=== PATIENT | male | born 1950 | race Caucasian/White ===

== ENCOUNTER 2017-02-04 03:29 | Observation (INO) | payer MEDICARE, OTHER ==
[2017-02-04] VITALS (11 sets, daily range): BP systolic 104–134; BP diastolic 42–73
[~2017-02-04] VITALS: Ht 188 cm; Wt 76.8 kg
--- NOTE | 2017-02-04 03:42 | PHYS DOC ---
Past History Past Medical History: No Pertinent History Past Surgical History: No Surgical History Smoking: Non-smoker Alcohol Use: None Drug Use: None Adult General Chief Complaint Chief Complaint: syncope HPI HPI 66-year-old gentleman presenting to the emergency department today after having a syncopal episode. He reports being mildly short of breath throughout the past 24 hours but didn't feel that he was any more than usual. Tonight felt lightheaded he went to go to get to the bathroom and subsequently passed out. Paramedics were called and the patient was then brought in for further evaluation workup and care. He denies any palpitations abdominal pain nausea vomiting or diaphoresis. He denies fevers or cough. Review of systems is negative for fevers chills nausea vomiting abdominal pain. All other review of systems is negative unless otherwise noted in history of present illness. All other review of systems is negative unless otherwise noted in history of present illness. ED course: 66-year-old gentleman presenting to the emergency department today with syncopal episode. Vitals. EKG was obtained which showed sinus rhythm with a regular rate. ST segments are congruent. Not suggestive of ACS. Chest x-ray obtained along with blood work.Chest x-ray reviewed by myself shows no obvious infiltrate or pneumothorax present. No obvious acute cardiopulmonary process present. Blood work reviewed and unremarkable including urinalysis. Pt was then admitted for telemetry monitoring further evaluation workup and care. Review of Systems Review of Systems SEE ABOVE. Physical Exam Physical Exam Constitutional: Well developed, well nourished, no acute distress, non-toxic appearance. [] HENT: Normocephalic, atraumatic, bilateral external ears normal, oropharynx moist, no oral exudates, nose normal. [] Eyes: PERRLA, EOMI, conjunctiva normal, no discharge. [] Neck: Normal range of motion, no tenderness, supple, no stridor. [] Cardiovascular:Heart rate regular rhythm, no murmur [] Lungs & Thorax: Bilateral breath sounds clear to auscultation [] Abdomen: Bowel sounds normal, soft, no tenderness, no masses, no pulsatile masses. [] Skin: Warm, dry, no erythema, no rash. [] Back: No tenderness, no CVA tenderness. [] Extremities: No tenderness, no cyanosis, no clubbing, ROM intact, no edema. [] Neurologic: Alert and oriented X 3, normal motor function, normal sensory function, no focal deficits noted. [] Psychologic: Affect normal, judgement normal, mood normal. [] EKG EKG [] Radiology/Procedures Radiology/Procedures [] Course & Med Decision Making Course & Med Decision Making Pertinent Labs and Imaging studies reviewed. (See chart for details) [] Dragon Disclaimer Dragon Disclaimer This chart was dictated in whole or in part using Voice Recognition software in a busy, high-work load, and often noisy Emergency Department environment. It may contain unintended and wholly unrecognized errors or omissions. Departure Departure: Impression: Primary Impression: Syncope Disposition: ADMITTED INPATIENT Admitting Physician: Usama Buchanan Condition: STABLE Referrals: PCP,NO (PCP) Patient Instructions: Syncope CHAVA HILL MD Feb 04, 2017 03:42
[2017-02-04 03:58] LABS: BASO # 0.1 x10^3/uL (0.0-0.2); BASO % 1 % (0-3); EOS # 0.1 x10^3/uL (0.0-0.7); EOS % 1 % (0-3); HEMATOCRIT 40.7 % (39.0-53.0); LYMPH # 3.9 x10^3/uL (1.0-4.8); LYMPH % 45 % (24-48); MEAN CORPUSCULAR HEMOGLOBIN 33 pg (25-35); MEAN CORPUSCULAR HGB CONC 34 g/dL (31-37); MEAN CORPUSCULAR VOLUME 97 fL (79-100); MONO # 0.6 x10^3/uL (0.0-1.1); MONO % 7 % (0-9); NEUT % 46 % (31-73); PLATELET COUNT 173 x10^3/uL (140-400); RED CELL DISTRIBUTION WIDTH 14.6 % (11.5-14.5); WHITE BLOOD COUNT 8.6 x10^3/uL (4.0-11.0)
[2017-02-04 04:17] LABS: ALBUMIN 3.7 g/dL (3.4-5.0); CALCIUM 8.6 mg/dL (8.5-10.1); CREATININE 1.7 mg/dL (0.7-1.3); DIRECT BILIRUBIN 0.1 mg/dL (0.0-0.2); GFR 40.4; POTASSIUM 3.9 mmol/L (3.5-5.1); TOTAL BILIRUBIN 0.3 mg/dL (0.2-1.0); TOTAL PROTEIN 7.3 g/dL (6.4-8.2)
[2017-02-04] MEDS ORDERED: CLOP75TA PO (04:41)
[2017-02-04] MEDS ORDERED: POTA10CA PO (04:41)
[2017-02-04] MEDS ORDERED: TIOT18CA IH (04:41)
[2017-02-04] MEDS ORDERED: DOCU100C28 PO (04:41)
[2017-02-04] MEDS ORDERED: ACET160S PO (04:41)
[2017-02-04] MEDS ORDERED: TRAM-48 PO (04:41)
[2017-02-04] MEDS ORDERED: LINA145C PO (04:41)
[2017-02-04] MEDS ORDERED: IPRA3AMP NEB (04:41)
[2017-02-04] MEDS ORDERED: GABA600T2 PO (04:41)
[2017-02-04] MEDS ORDERED: IPRA4AER INH (04:41)
[2017-02-04] MEDS ORDERED: FURO20TA3 PO (04:41)
[2017-02-04] MEDS ORDERED: OXYC-323 PO (04:41)
[2017-02-04] MEDS ORDERED: NITR0.4T22 SL (04:41)
[2017-02-04] MEDS ORDERED: OMEP20CA9 PO (04:41)
[2017-02-04 05:25] LABS: BILIRUBIN,URINE NEG (NEG); CLARITY,URINE CLEAR; COLOR,URINE YELLOW; GLUCOSE,URINE NEG (NEG); NITRITE,URINE NEG (NEG); UROBILINOGEN,URINE 4 mg/dL (0.2 mg/dL); WBC,URINE RARE /HPF (0-4)
[2017-02-04 05:26] LABS: BACTERIA,URINE 0 /HPF (0-FEW); SQUAMOUS EPITHELIAL CELL,UR OCC /LPF
[2017-02-04] MEDS ORDERED: MORPHINE SULFATE 2 MG/ML DISP.SYRIN. IV PRN (05:45)
[2017-02-04] MEDS ORDERED: ONDANSETRON PF 4 MG/2 ML VIAL. IV PRN ×2 (05:45→08:00)
[2017-02-04] MEDS: IV NORMAL SALINE 1,000ML 1,000 ML IV SCH ×2 (05:49→15:46)
--- NOTE | 2017-02-04 06:17 | EKG ---
[address] [address] Test Date: 2017-02-04 Test Time: 03:34:55 Pat Name: SUYAPA KENNEY Department: Room: Gender: M [employer]: KATIA : 1950 Requested By: CHAVA HILL Order Number: [id number] Reading MD: Allen Burgos Measurements Intervals [place] Rate: 72 P: 74 MS: 138 QRS: 22 QRSD: 82 T: 60 QT: 404 QTc: 444 Interpretive Statements SINUS RHYTHM CONSISTENT WITH ANTEROSEPTAL INFARCT Electronically Signed On 02-06-2017 8:45:27 CDT by Allen Burgos
[2017-02-04] MEDS ORDERED: ASPI-630 PO (07:47)
[2017-02-04] MEDS ORDERED: ACET325T9 PO (07:47)
[2017-02-04] MEDS ORDERED: CLOP75TA57 PO (07:47)
--- NOTE | 2017-02-04 09:08 | RAD ---
CHEST AP ONLY Clinical Indication: syncope Comparison: None. Findings: The lateral costophrenic margins are partially excluded from the [id number]. Low lung volume. No focal consolidations. Pulmonary vascular fullness. No large pleural effusion or pneumothorax. The cardiomediastinal silhouette is normal. The great vessels of the thorax are normal. No acute osseous abnormality. IMPRESSION: 1. No focal consolidation. 2. Pulmonary vascular fullness. This finding can be seen with early pulmonary edema, but given the patient's normal heart size, it is likely just accentuated by the low lung volumes.
[2017-02-04] MEDS ORDERED: NITROGLYCERIN SUBLINGUAL 0.4 MG BOTTLE OF 25. SL PRN (09:15)
[2017-02-04] MEDS ORDERED: traMADol 50 MG TABLET PO PRN (09:15)
[2017-02-04] MEDS: IPRATRPIUM/ALBUTEROL 0.5/2.5MG 3 ML NEBU. NEB SCH ×4 (09:34→20:30)
[2017-02-04] MEDS ORDERED: DOCUSATE SODIUM 100 MG CAPSULE PO SCH (10:00)
[2017-02-04] MEDS ORDERED: ASPIRIN 81 MG TAB.CHEW PO SCH (10:00)
[2017-02-04] MEDS: PANTOPRAZOLE 40 MG TABLET. PO SCH (11:01)
[2017-02-04] MEDS: GABAPENTIN 300 MG CAPSULE. PO SCH ×4 (11:01→21:15)
[2017-02-04] MEDS: CLOPIDOGREL BISULFATE 75 MG TABLET PO SCH (11:01)
[2017-02-04] MEDS: LINACLOTIDE 145 MCG CAPSULE. PO SCH (11:13)
[2017-02-04] MEDS ORDERED: oxyCODONE/APAP 5/325 1 TAB TABLET PO PRN (12:00)
[2017-02-04] MEDS ORDERED: ACETAMINOPHEN 325 MG TABLET PO SCH (12:00)
[2017-02-04] MEDS ORDERED: ACETAMINOPHEN 325 MG TABLET PO PRN (12:00)
[2017-02-04] MEDS ORDERED: oxyCODONE/APAP 5/325 1 TAB TABLET PO SCH (12:00)
--- NOTE | 2017-02-04 13:32 | PDOC1 ---
HISTORY & PHYSICAL DATE OF ADMISSION: 02/04/2017 HPI: HPI: This is a 66-year-old male who states he got up in the middle of the night to go to the bathroom, he was in the hallway and felt like he was going to pass out. He did pass out. He does not think that he was out very long. He was in the process of easing himself to the floor. And did not sustain any injury that he is aware of. He also reports some increasingly shortness of breath over the last couple of days more so than normal. Particularly with exertion. Denies chest pain. PROBLEMS: Problems Medical Problems: (1) Syncopal Episode #2 severe peripheral vascular disease #3 chronic constipation #4 hypothyroidism #5 COPD #6 chronic kidney disease stage III #7 enlarged prostate number #8 history of kidney cancer #9 history of bradycardia and hypotension #10 coronary artery disease #11 sleep apnea number #12 history of NM 13 essential tremor 14 neuropathy Status: Acute PAST MEDICAL HISTORY: PMH: #1 Syncopal episode in the past 5 years ago #2 severe peripheral vascular disease #3 chronic constipation #4 hypothyroidism #5 COPD #6 chronic kidney disease stage III #7 enlarged prostate number #8 history of kidney cancer #9 history of bradycardia and hypotension #10 coronary artery disease #11 sleep apnea number #12 history of NM 13 essential tremor 14 neuropathy PSH: Partial nephrectomy-left Multiple vascular stents in his legs and abdomen Nerve transfer surgery and left elbow 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 quit, no alcohol ALLERGIES: Allergies Coded Allergies Type Severity Reaction Last Updated Verified No Known Drug Allergies 02/04/17 No MEDS: MEDICATIONS: Current Medications Medications (Trade) Dose Ordered Sig/Fritz Start Time Stop Time Status Last Admin Dose Admin Acetaminophen (Tylenol) 650 mg PRN Q6HRS PRN 02/04/17 12:00 Albuterol/ Ipratropium (Duoneb) 3 ml QID 02/04/17 10:00 02/04/17 09:34 3 ML Aspirin (Children'S Aspirin) 81 mg DAILY 02/04/17 10:00 02/04/17 10:26 DC Clopidogrel Bisulfate (Plavix) 75 mg DAILY 02/04/17 10:00 02/04/17 11:01 75 MG Docusate Sodium (Colace) 100 mg BID 02/04/17 10:00 02/04/17 10:26 DC Gabapentin (Neurontin) 600 mg QID 02/04/17 10:00 02/04/17 11:01 600 MG Morphine Sulfate (Morphine 2mg Syringe) 2 mg PRN Q2HR PRN 02/04/17 05:45 02/05/17 05:44 Nitroglycerin (Nitrostat) 0.4 mg PRN Q5MIN PRN 02/04/17 09:15 Non-Formulary Medication 18 mcg BID 02/04/17 21:00 02/04/17 21:00 DC Ondansetron HCl (Zofran) 4 mg PRN Q8HRS PRN 02/04/17 08:00 Oxycodone/ Acetaminophen (Percocet 5/325) 1 tab PRN Q6HRS PRN 02/04/17 12:00 Pantoprazole Sodium (Protonix) 40 mg DAILYAC 02/04/17 10:00 02/04/17 11:01 40 MG Potassium Chloride (Micro-K) 10 meq DAILY 02/05/17 10:00 02/05/17 10:00 DC Sodium Chloride 1,000 ml @ 100 mls/hr Q10H 02/04/17 05:35 02/05/17 05:34 02/04/17 05:49 100 MLS/HR Tramadol HCl (Ultram) 50 mg PRN Q6HRS PRN 02/04/17 09:15 VITALS: He has had several episodes of bradycardia with rate in the 40s. Vital Signs Date Time Temp Pulse Resp B/P (MAP) Pulse Ox O2 Delivery O2 Flow Rate FiO2 02/04/17 12:56 58 20 115/64 (81) 96 Room Air 02/04/17 11:15 97.8 02/04/17 09:38 2.0 LABS: Laboratory Tests Test 02/04/17 03:33 02/04/17 04:54 02/04/17 10:24 White Blood Count 8.6 x10^3/uL (4.0-11.0) Red Blood Count 4.20 x10^6/uL (4.30-5.70) Hemoglobin 14.0 g/dL (13.0-17.5) Hematocrit 40.7 % (39.0-53.0) Mean Corpuscular Volume 97 fL (79-100) Mean Corpuscular Hemoglobin 33 pg (25-35) Mean Corpuscular Hemoglobin Concent 34 g/dL (31-37) Red Cell Distribution Width 14.6 % (11.5-14.5) Platelet Count 173 x10^3/uL (140-400) Neutrophils (%) (Auto) 46 % (31-73) Lymphocytes (%) (Auto) 45 % (24-48) Monocytes (%) (Auto) 7 % (0-9) Eosinophils (%) (Auto) 1 % (0-3) Basophils (%) (Auto) 1 % (0-3) Neutrophils # (Auto) 4.0 x10^3uL (1.8-7.7) Lymphocytes # (Auto) 3.9 x10^3/uL (1.0-4.8) Monocytes # (Auto) 0.6 x10^3/uL (0.0-1.1) Eosinophils # (Auto) 0.1 x10^3/uL (0.0-0.7) Basophils # (Auto) 0.1 x10^3/uL (0.0-0.2) Sodium Level 143 mmol/L (136-145) Potassium Level 3.9 mmol/L (3.5-5.1) Chloride Level 107 mmol/L (98-107) Carbon Dioxide Level 29 mmol/L (21-32) Anion Gap 7 (6-14) Blood Urea Nitrogen 15 mg/dL (8-26) Creatinine 1.7 mg/dL (0.7-1.3) Estimated GFR (Cockcroft-Gault) 40.4 Glucose Level 120 mg/dL (70-99) Lactic Acid Level 1.9 mmol/L (0.4-2.0) Calcium Level 8.6 mg/dL (8.5-10.1) Total Bilirubin 0.3 mg/dL (0.2-1.0) Direct Bilirubin 0.1 mg/dL (0.0-0.2) Aspartate Amino Transf (AST/SGOT) 11 U/L (15-37) Alanine Aminotransferase (ALT/SGPT) 16 U/L (16-63) Alkaline Phosphatase 71 U/L (46-116) Troponin I Quantitative < 0.017 ng/mL (0-0.055) < 0.017 ng/mL (0-0.055) RH-Twi-O-Type Natriuretic Peptide 200 pg/mL (0-124) Total Protein 7.3 g/dL (6.4-8.2) Albumin 3.7 g/dL (3.4-5.0) Lipase 136 U/L (73-393) Urine Collection Type Unknown Urine Color Yellow Urine Clarity Clear Urine pH 6.0 Urine Specific [place] 1.020 Urine Protein Neg (NEG-TRACE) Urine Glucose (UA) Neg mg/dL (NEG) Urine Ketones (Stick) Trace mg/dL (NEG) Urine Blood Mod (NEG) Urine Nitrite Neg (NEG) Urine Bilirubin Neg (NEG) Urine Urobilinogen Dipstick 4 mg/dL (0.2 mg/dL) Urine Leukocyte Esterase Neg (NEG) Urine RBC 6-10 /HPF (0-2) Urine WBC Rare /HPF (0-4) Urine Squamous Epithelial Cells Occ /LPF Urine Bacteria 0 /HPF (0-FEW) Magnesium Level 2.1 mg/dL (1.8-2.4) IMAGES: IMAGES: CXR with borderline pulmonary vascular congestion ROS: Positive review of systems. Patient reports chronic ear pain, ears pounding, negative sore throat, negative fever, positive weight loss of 13 pounds, cramps in his legs cramps to his toes cramps in his calves, constipation, difficulty urinating, shortness of breath, PHYSICAL EXAM: 71-year-old male in no acute distress. Pupils were equal react round and reactive to light and accommodation, extraocular muscles are intact. Ears bilateral bullae noted on both drums with mild erythema. Patient states this is chronic. Neck was supple without adenopathy there's. There is no unusual rushing sound heard on the left side of the neck not a bruit but a rushing sound. No bruit on the right. Lungs with distant breath sounds. Cardiovascular very faint regular rhythm and rate and bradycardic currently. Abdomen was soft nontender bowel sounds are positive no abdominal bruits extremities with severe evidence of peripheral vascular disease with feet without hair growth pale nailbeds, faint pulses and discoloration with purplish discoloration. Logically has a fine tremor of the hands. Mental state he is alert and oriented and is a very good historian. VTE PROPHYLAXIS: VTE Pharmacological Prophylaxi: No ASSESSMENT/PLAN ASSESSMENT: ms: (1) Syncopal Episode ? secondary to bradycardia #2 severe peripheral vascular disease #3 chronic constipation #4 hypothyroidism #5 COPD with hypoxia #6 chronic kidney disease stage III #7 enlarged prostate number #8 history of kidney cancer #9 history of bradycardia and hypotension #10 coronary artery disease #11 sleep apnea #12 history of NM 13 essential tremor 14 neuropathy PLAN: Cardiology consult, echocardiogram. Old records. Breathing treatments. Carotid dopplers. ADONIS HWANG DO Feb 04, 2017 13:32
--- NOTE | 2017-02-04 16:32 | CARD ---
APPROVED REPORT EXAM: Two-dimensional and M-mode echocardiogram with Doppler and color Doppler. Other Information Quality : Average Rhythm : NSR INDICATION Chest Pain 2D DIMENSIONS Left Atrium(2D)3.3 (1.6-4.0cm)IVSd0.9 (0.7-1.1cm) Aortic Root(2D)2.8 (2.0-3.7cm)LVDd5.1 (3.9-5.9cm) LVOT Diameter2.4 (1.8-2.4cm)PWd0.9 (0.7-1.1cm) LVDs3.3 (2.5-4.0cm)FS (%) 25.1 % SV80.1 mlLVEF(%)54.1 (>50%) Aortic Valve AoV Peak Elmer.118.4cm/sAoV VTI31.7cm AO Peak GR.5.6mmHgLVOT Peak Elmer.99.1cm/s LVOT VTI 23.87cmAO Mean GR.4mmHg ZE (VMAX)3.40fi9WZM (VTI)3.42cm2 Mitral Valve MV E Ohyxpipj12.1cm/sMV DECEL HMPF231de MV A Ppijdpnb51.1cm/sMV WUL58sp E/A Ratio1.3MV A Onvnimat265uw MVA (PHT)2.90cm2 Tricuspid Valve TR P. Pnmltfvu083ss/sRAP YVAYTCVM3cvTe TR Peak Gr.28osNwJQMQ06afOt LEFT VENTRICLE The left ventricle is normal size. There is normal left ventricular wall thickness. Left ventricle sy stolic function is normal. The Ejection Fraction is 50-55%. There is normal LV segmental wall motion. The left ventricular diastolic function and filling is normal for age. RIGHT VENTRICLE The right ventricle is normal size. The right ventricular systolic function is normal. ATRIA The left atrium size is normal. The right atrium size is normal. The interatrial septum is intact wit h no evidence for an atrial septal defect or patent foramen ovale as noted on 2-D or Doppler imaging. AORTIC VALVE The aortic valve is not well visualized but appears trileaflet. Doppler and Color Flow revealed no si gnificant aortic regurgitation. There is no significant aortic valvular stenosis. MITRAL VALVE Mitral annular calcification is mild. There is no mitral valve stenosis. Doppler and Color Flow revea led trace to mild mitral regurgitation. TRICUSPID VALVE The tricuspid valve is normal in structure and function. Doppler and Color Flow revealed trace tricus pid regurgitation. The PA pressure was estimated at 37 mmHg. There is no tricuspid valve stenosis. PULMONIC VALVE The pulmonic valve is not well visualized. Doppler and Color Flow revealed no pulmonic valvular regur gitation. There is no pulmonic valvular stenosis. GREAT VESSELS The aortic root is normal in size. Pulmonary veins not recorded. The IVC is dilated and collapses >50 % with inspiration. PERICARDIAL EFFUSION There is no evidence of significant pericardial effusion. Critical Notification Critical Value: No <Conclusion> Left ventricle systolic function is normal. The Ejection Fraction is 50-55%. There is normal LV segmental wall motion.
--- NOTE | 2017-02-04 16:45 | PDOC2 ---
CONSULT Date of Admission DATE: 02/04/17 TIME: 16:44 Reason for Consult: Syncope Referring Physician: Dr. Caraballo Chief Complaint Syncope Source: Chart review, Patient Problem List Problems Medical Problems: (1) Syncope Status: Acute History of Present Illness 66-year-old male presented after he had an episode of humaira syncope when he got up in the middle of the night to use the bathroom. On further interrogation, he stated that he had several episodes of syncope and near-syncope approximately one year ago. He denied any postural component to these episodes. He also denied any chest pain, orthopnea/PND or palpitations. 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 He denied any alcohol or drug use. Current Medications Current Medications Ondansetron HCl (Zofran) 4 mg PRN Q4HRS PRN IV NAUSEA/VOMITING; Start 02/04/17 at 05:45; Stop 02/05/17 at 05:44; Status Cancel Morphine Sulfate (Morphine 2mg Syringe) 2 mg PRN Q2HR PRN IV PAIN; Start at 05:45; Stop 02/05/17 at 05:44 Sodium Chloride 1,000 ml @ 100 mls/hr Q10H IV Last administered on 02/04/17 15:46; Start 02/04/17 at 05:35; Stop 02/05/17 at 05:34 Ondansetron HCl (Zofran) 4 mg PRN Q8HRS PRN IV NAUSEA/VOMITING; Start 02/04/17 at 08:00 Acetaminophen (Tylenol) 650 mg Q6HRS PO ; Start 02/04/17 at 12:00; Stop at 12:00; Status DC Aspirin (Children'S Aspirin) 81 mg DAILY PO ; Start 02/05/17 at 09:00; Stop at 09:00; Status DC Clopidogrel Bisulfate (Plavix) 75 mg DAILY PO Last administered on 02/04/17 11 :01; Start 02/04/17 at 10:00 Docusate Sodium (Colace) 100 mg BID PO ; Start 02/04/17 at 10:00; Stop 02/04/17 at 10:26; Status DC Albuterol/ Ipratropium (Duoneb) 3 ml QID NEB Last administered on 02/04/17 15: 31; Start 02/04/17 at 10:00 Nitroglycerin (Nitrostat) 0.4 mg PRN Q5MIN PRN SL CHEST PAIN; Start 02/04/17 at 09:15 Oxycodone/ Acetaminophen (Percocet 5/325) 1 tab Q6HRS PO ; Start 02/04/17 at 12: 00; Stop 02/04/17 at 12:00; Status DC Potassium Chloride (Micro-K) 10 meq DAILY PO ; Start 02/05/17 at 10:00; Stop at 10:00; Status DC Tramadol HCl (Ultram) 50 mg PRN Q6HRS PRN PO PAIN; Start 02/04/17 at 09:15 Gabapentin (Neurontin) 600 mg QID PO Last administered on 02/04/17 15:46; Start 02/04/17 at 10:00 Pantoprazole Sodium (Protonix) 40 mg DAILYAC PO Last administered on 02/04/17 11:01; Start 02/04/17 at 10:00 Non-Formulary Medication 18 mcg BID IH ; Start 02/04/17 at 21:00; Stop 02/04/17 at 21:00; Status DC Aspirin (Children'S Aspirin) 81 mg DAILY PO ; Start 02/04/17 at 10:00; Stop at 10:26; Status DC Oxycodone/ Acetaminophen (Percocet 5/325) 1 tab PRN Q6HRS PRN PO PAIN; Start at 12:00 Acetaminophen (Tylenol) 650 mg PRN Q6HRS PRN PO FEVER; Start 02/04/17 at 12:00 Active Scripts Active Reported Plavix (Clopidogrel Bisulfate) 75 Mg Tablet 1 Tab PO DAILY Tylenol (Acetaminophen) 325 Mg Tablet 2 Tab PO Q6HRS Ultram (Tramadol HCl) 50 Mg Tablet 50 Mg PO PRN Q6HRS PRN Spiriva (Tiotropium [place]) 18 Mcg Cap.w.dev 18 Mcg IH BID NITROGLYCERIN SubLingual (Nitroglycerin) 0.4 Mg Tab.subl 0.4 Mg SL PRN Q5MIN PRN Potassium Chloride 10 Meq Capsule.er 10 Meq PO DAILY PRN Combivent Respimat Inhal (Ipratropium/Albuterol Sulfate) 4 Gm Aer.w.adap 1 Puff INH Clopidogrel (Clopidogrel Bisulfate) 75 Mg Tablet 75 Mg PO DAILY Omeprazole 20 Mg Capsule.dr 20 Mg PO BID Percocet 5-325 Mg Tablet (Oxycodone Hcl/Acetaminophen) 1 Each Tablet 1 Tab PO Q6HRS PRN Linzess (Linaclotide) 145 Mcg Capsule 145 Mcg PO DAILY Furosemide 20 Mg Tablet 20 Mg PO DAILY PRN Duoneb 0.5-3(2.5) Mg/3 Ml (Albuterol/Ipratropium) 3 Ml Ampul.neb 3 Ml NEB QID Gabapentin 600 Mg Tablet 600 Mg PO QID Allergies: Coded Allergies: No Known Drug Allergies (Unverified , 02/04/17) PSYCHOLOGICAL ROS: No: Hallucinations Eyes: No: Loss of vision HEENT: No: Epistaxis Respiratory: No: Hemoptysis, Shortness of breath Cardiovascular: No: Chest Pain Gastrointestinal: No: Vomiting, Diarrhea Neurological: YES: Dizziness, Other (syncope), No: Seizures Skin: YES: Rash General: Alert, Oriented X3 HEENT: Atraumatic, PERRLA Lungs: Clear to auscultation Heart: Regular rate Abdomen: Soft, No tenderness Extremities: No edema Psych/Mental Status: Mood NL VITALS Vital Signs Date Time Temp Pulse Resp B/P (MAP) Pulse Ox O2 Delivery O2 Flow Rate FiO2 02/04/17 15:31 97 Nasal Cannula 2.0 02/04/17 15:06 97.8 72 18 120/64 (82) Labs Laboratory Tests Test 02/04/17 03:33 02/04/17 04:54 02/04/17 10:24 02/04/17 16:20 White Blood Count 8.6 x10^3/uL (4.0-11.0) Red Blood Count 4.20 x10^6/uL (4.30-5.70) Hemoglobin 14.0 g/dL (13.0-17.5) Hematocrit 40.7 % (39.0-53.0) Mean Corpuscular Volume 97 fL (79-100) Mean Corpuscular Hemoglobin 33 pg (25-35) Mean Corpuscular Hemoglobin Concent 34 g/dL (31-37) Red Cell Distribution Width 14.6 % (11.5-14.5) Platelet Count 173 x10^3/uL (140-400) Neutrophils (%) (Auto) 46 % (31-73) Lymphocytes (%) (Auto) 45 % (24-48) Monocytes (%) (Auto) 7 % (0-9) Eosinophils (%) (Auto) 1 % (0-3) Basophils (%) (Auto) 1 % (0-3) Neutrophils # (Auto) 4.0 x10^3uL (1.8-7.7) Lymphocytes # (Auto) 3.9 x10^3/uL (1.0-4.8) Monocytes # (Auto) 0.6 x10^3/uL (0.0-1.1) Eosinophils # (Auto) 0.1 x10^3/uL (0.0-0.7) Basophils # (Auto) 0.1 x10^3/uL (0.0-0.2) Sodium Level 143 mmol/L (136-145) Potassium Level 3.9 mmol/L (3.5-5.1) Chloride Level 107 mmol/L (98-107) Carbon Dioxide Level 29 mmol/L (21-32) Anion Gap 7 (6-14) Blood Urea Nitrogen 15 mg/dL (8-26) Creatinine 1.7 mg/dL (0.7-1.3) Estimated GFR (Cockcroft-Gault) 40.4 Glucose Level 120 mg/dL (70-99) Lactic Acid Level 1.9 mmol/L (0.4-2.0) Calcium Level 8.6 mg/dL (8.5-10.1) Total Bilirubin 0.3 mg/dL (0.2-1.0) Direct Bilirubin 0.1 mg/dL (0.0-0.2) Aspartate Amino Transf (AST/SGOT) 11 U/L (15-37) Alanine Aminotransferase (ALT/SGPT) 16 U/L (16-63) Alkaline Phosphatase 71 U/L (46-116) Troponin I Quantitative < 0.017 ng/mL (0-0.055) < 0.017 ng/mL (0-0.055) < 0.017 ng/mL (0-0.055) DW-Icm-B-Type Natriuretic Peptide 200 pg/mL (0-124) Total Protein 7.3 g/dL (6.4-8.2) Albumin 3.7 g/dL (3.4-5.0) Lipase 136 U/L (73-393) Urine Collection Type Unknown Urine Color Yellow Urine Clarity Clear Urine pH 6.0 Urine Specific [place] 1.020 Urine Protein Neg (NEG-TRACE) Urine Glucose (UA) Neg mg/dL (NEG) Urine Ketones (Stick) Trace mg/dL (NEG) Urine Blood Mod (NEG) Urine Nitrite Neg (NEG) Urine Bilirubin Neg (NEG) Urine Urobilinogen Dipstick 4 mg/dL (0.2 mg/dL) Urine Leukocyte Esterase Neg (NEG) Urine RBC 6-10 /HPF (0-2) Urine WBC Rare /HPF (0-4) Urine Squamous Epithelial Cells Occ /LPF Urine Bacteria 0 /HPF (0-FEW) Magnesium Level 2.1 mg/dL (1.8-2.4) Assessment/Plan 1. Syncope: Telemetry showed few episodes of sinus bradycardia without any significant pauses. 2-D echo showed normal LV systolic function without any significant structural abnormalities. Carotid massage elicited symptoms but did not show any significant pauses on telemetry. We will plan for event monitor as an outpatient. 2. COPD, PAD - clinically stable Thank you for your consultation. Problems: BRIAN DSOUZA MD Feb 04, 2017 16:45
[2017-02-04] MEDS ORDERED: ZOLPIDEM 5 MG TABLET. PO PRN (18:30)
[2017-02-04] MEDS ORDERED: NON FORMULARY ITEM (Tiotropium Bromide (Spiriva) 18 MCG) IH SCH (21:00)
--- NOTE | 2017-02-04 22:49 | RAD ---
EXAM: Carotid Doppler sonogram. HISTORY: Syncope, hypertension, smoker. TECHNIQUE: Britt scale and color Doppler sonographic evaluation of the neck with spectral waveform analysis was performed and static images are submitted for review. FINDINGS: RIGHT: The peak systolic velocity within the common carotid artery is 101 cm/sec. The peak systolic velocity within the internal carotid artery is 124 cm/sec and the end diastolic velocity within the internal carotid artery is 23 cm/sec. The ICA/CCA ratio is 1.23. Grayscale images demonstrate no grayscale stenosis. LEFT: The peak systolic velocity within the common carotid artery is 102 cm/sec. The peak systolic velocity within the internal carotid artery is 1:15 cm/sec and the end diastolic velocity within the internal carotid artery is 33 cm/sec. The ICA/CCA ratio is 1.40. Grayscale images demonstrate no grayscale stenosis. There is antegrade flow within both vertebral arteries. IMPRESSION: 1. No evidence of hemodynamically significant stenosis. PQRS Compliance Statement - Stenosis calculations for CT, MR and conventional angiography are based upon measurement of the distal ICA diameter in accordance with the NASCET methodology. Stenosis calculations for carotid ultrasound studies are derived from validated velocity criteria which are known to correlate with the NASCET methodology. Electronically signed by: Amelia Hoskins MD (02/04/2017 10:46 PM) [facility]
[2017-02-05] MEDS: IV NORMAL SALINE 1,000ML 1,000 ML IV SCH (01:36)
[2017-02-05 02:00] VITALS: BP 92/45
[2017-02-05 04:00] VITALS: BP 92/49
[2017-02-05] MEDS: IPRATRPIUM/ALBUTEROL 0.5/2.5MG 3 ML NEBU. NEB SCH (05:50)
[2017-02-05 06:00] VITALS: BP 92/49
--- NOTE | 2017-02-05 06:44 | CONS ---
DATE OF CONSULTATION: 02/04/2017 NEUROLOGIC CONSULTATION REFERRING PHYSICIAN: Dr. Caraballo. REASON FOR CONSULTATION: Possible syncope. HISTORY OF PRESENT ILLNESS: This is a 66-year-old right-handed white male, who was admitted through Emergency Room after he presented with possible new onset of syncope. According to the patient, in the middle of last night, he was going to bathroom and all of a sudden, he had severe weakness of the leg, which buckled on him and he fell to the floor and lost consciousness and had a brief loss of consciousness for approximately 1 minute. When the patient came to, he was alert and oriented and he did recall the event. He did not have any bowel or bladder incontinence, tongue biting, or witnessed convulsions. The patient does not feel like he had any injuries or convulsions. He landed slowly to the floor. Before he hit the floor, he passed out. The patient had a similar episode approximately 5 years ago and he was diagnosed with syncope. The patient denies any preceding symptoms like dizziness, palpitations, chest pain, but he has been suffering from chronic shortness of breath secondary to underlying COPD. Currently, he denies headaches, visual disturbances, nausea, vomiting, chest pain, diplopia or dysphagia. PAST MEDICAL HISTORY: Quite extensive and includes history of syncope x1; severe peripheral vascular disease, probably secondary to chronic smoking; hypothyroidism; COPD; chronic kidney disease stage 3; benign enlarged prostate; history of left-sided kidney cancer, required partial nephrectomy; history of hypertension and bradycardia; coronary artery disease, status post myocardial infarction x 1; obstructive sleep apnea; peripheral neuropathy in the lower extremities and intermittent mild tremor. 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 SOCIAL HISTORY: The patient is single. He has had a longstanding history of heavy smoking, but currently he smoked slightly at 4-5 cigarettes daily. He intended to quit smoking for good. FAMILY HISTORY: Noncontributory. CURRENT MEDICATIONS: Ambien, Tylenol, oxycodone, Protonix, gabapentin 600 mg q.i.d., Plavix 75 mg daily, albuterol nebulizer, nitroglycerin, tramadol 50 mg q. 6 hours p.r.n., Zofran 4 mg IV q.8 hours p.r.n. and morphine 2 mg intravenously every 2 hours p.r.n. PHYSICAL EXAMINATION: GENERAL: Well-developed and well-nourished white male, not in acute distress. He weighs 161 pounds. VITAL SIGNS: Blood pressure 112/59, respiratory rate 22, pulse is 58 and regular, temperature is 98.2, oxygen saturation 100% on 2 liters by nasal cannula. HEENT: Normocephalic, atraumatic, otherwise unremarkable. NECK: Supple. Negative for carotid bruit, lymphadenopathy or thyromegaly. LUNGS: With diminished breath sounds bilaterally. No wheezing. CARDIOVASCULAR: Regular rate and rhythm, normal S1, S2. ABDOMEN: Soft. Bowel sounds positive. EXTREMITIES: Positive for brownish discoloration secondary to peripheral vascular disease. The peripheral pulses are weak. NEUROLOGIC: MENTAL STATUS: The patient is alert and oriented x 3. The speech is fluent. There is no language dysfunction. Memory, judgment, and abstract thinking are normal. The patient denies hallucination or delusion. CRANIAL NERVES: Visual roberto are full. The pupils are reactive to light and accommodation. The extraocular movements are intact. There is no nystagmus. There is no facial motor or sensory deficit. Hearing is intact bilaterally. The palate is elevated symmetrically. Sternocleidomastoid muscles are powerful bilaterally. The patient shrugs his shoulders symmetrically and protrudes his tongue in the midline without fasciculation or atrophy. MOTOR: No focal muscle bulk was seen. Tone is normal. The strength is 5/5 throughout. SENSORY: Revealed diminished pinprick and light touch senses in patchy distributions below the knees bilaterally. Deep tendon reflexes were symmetric and hypoactive with absent Achilles responses. Gait and coordination are normal. LABORATORY DATA: CBC revealed white blood cells of 8600, hemoglobin 14, hematocrit 40.7, and platelet count 173,000. Chemistry revealed sodium of 143, potassium of 3.9, chloride 107, CO2 of 29, BUN 15, creatinine 1.7, glucose 120. Magnesium 2.1, calcium 8.6, AST is low at 11 with normal ALT. Troponin level less than 0.017. is high at 200. Urinalysis is negative for urinary tract infections. IMPRESSION: 1. Syncope, etiology uncertain, probably due to cardiac arrhythmia, hypoxemia or cerebral hypoperfusion secondary to internal carotid artery stenosis. 2. Severe peripheral vascular disease. 3. Hypothyroidism. 4. Chronic obstructive pulmonary disease. 5. Chronic kidney disease stage 3. 6. Obstructive sleep apnea and has been on oxygen supplement and possible peripheral neuropathy in the lower extremities. RECOMMENDATIONS: 1. Continue with current management with Cardiology recommendations. 2. The patient will need prolonged Holter monitoring to rule out cardiac arrhythmia. 3. Followup visit in [facility] in [place] with Dr. Stewart for further evaluation to his neuropathy of the lower extremities. M Bronson STEWART MD DR: LETICIA/jerrod JOB#: [id number] / [id number]
[2017-02-05 06:49] LABS: BASO % 1 % (0-3); EOS # 0.1 x10^3/uL (0.0-0.7); EOS % 1 % (0-3); HEMATOCRIT 35.8 % (39.0-53.0); HEMOGLOBIN 12.1 g/dL (13.0-17.5); LYMPH # 2.9 x10^3/uL (1.0-4.8); LYMPH % 36 % (24-48); MEAN CORPUSCULAR HEMOGLOBIN 33 pg (25-35); MEAN CORPUSCULAR HGB CONC 34 g/dL (31-37); MEAN CORPUSCULAR VOLUME 96 fL (79-100); MONO # 0.5 x10^3/uL (0.0-1.1); MONO % 6 % (0-9); NEUT # 4.6 x10^3uL (1.8-7.7); NEUT % 57 % (31-73); PLATELET COUNT 150 x10^3/uL (140-400); RED BLOOD COUNT 3.72 x10^6/uL (4.30-5.70); RED CELL DISTRIBUTION WIDTH 14.3 % (11.5-14.5)
[2017-02-05 06:58] LABS: ALBUMIN 2.9 g/dL (3.4-5.0); ALBUMIN/GLOBULIN RATIO 0.9 (1.0-1.7); CALCIUM 7.8 mg/dL (8.5-10.1); CREATININE 1.6 mg/dL (0.7-1.3); GFR 43.3; TOTAL BILIRUBIN 0.2 mg/dL (0.2-1.0)
[2017-02-05] MEDS: PANTOPRAZOLE 40 MG TABLET. PO SCH (07:24)
[2017-02-05] MEDS: GABAPENTIN 300 MG CAPSULE. PO SCH (07:24)
[2017-02-05] MEDS: CLOPIDOGREL BISULFATE 75 MG TABLET PO SCH (07:25)
[2017-02-05] MEDS: LINACLOTIDE 145 MCG CAPSULE. PO SCH (07:25)
[2017-02-05] MEDS ORDERED: ASPIRIN 81 MG TAB.CHEW PO SCH (09:00)
[2017-02-05] MEDS ORDERED: POTASSIUM CHLORIDE 10 MEQ CAPSULE.ER. PO SCH (10:00)
--- NOTE | 2017-02-05 13:16 | PDOC3 ---
Discharge Summary Visit Information Date of Admission: Feb 04, 2017 Date of Discharge: Feb 05, 2017 Final Diagnosis Problems Medical Problems: (1) Syncope Status: Acute ) Syncopal Episode #2 severe peripheral vascular disease #3 chronic constipation #4 hypothyroidism #5 COPD #6 chronic kidney disease stage III #7 enlarged prostate number #8 history of kidney cancer #9 history of bradycardia and hypotension #10 coronary artery disease #11 sleep apnea number #12 history of MS 13 essential tremor 14 neuropathy 15. Elevated pulmonary artery pressure of 38 Problems: Brief Hospital Course Allergies Allergies Coded Allergies Type Severity Reaction Last Updated Verified No Known Drug Allergies 02/04/17 No Vital Signs Vital Signs Date Time Temp Pulse Resp B/P (MAP) Pulse Ox O2 Delivery O2 Flow Rate FiO2 02/05/17 06:00 98.2 64 92/49 (63) 96 02/05/17 05:50 Nasal Cannula 2.0 02/05/17 04:00 13 Lab Results Laboratory Tests Test 02/04/17 03:33 02/04/17 04:54 02/04/17 08:57 02/04/17 10:24 White Blood Count 8.6 x10^3/uL (4.0-11.0) Red Blood Count 4.20 x10^6/uL (4.30-5.70) Hemoglobin 14.0 g/dL (13.0-17.5) Hematocrit 40.7 % (39.0-53.0) Mean Corpuscular Volume 97 fL (79-100) Mean Corpuscular Hemoglobin 33 pg (25-35) Mean Corpuscular Hemoglobin Concent 34 g/dL (31-37) Red Cell Distribution Width 14.6 % (11.5-14.5) Platelet Count 173 x10^3/uL (140-400) Neutrophils (%) (Auto) 46 % (31-73) Lymphocytes (%) (Auto) 45 % (24-48) Monocytes (%) (Auto) 7 % (0-9) Eosinophils (%) (Auto) 1 % (0-3) Basophils (%) (Auto) 1 % (0-3) Neutrophils # (Auto) 4.0 x10^3uL (1.8-7.7) Lymphocytes # (Auto) 3.9 x10^3/uL (1.0-4.8) Monocytes # (Auto) 0.6 x10^3/uL (0.0-1.1) Eosinophils # (Auto) 0.1 x10^3/uL (0.0-0.7) Basophils # (Auto) 0.1 x10^3/uL (0.0-0.2) Sodium Level 143 mmol/L (136-145) Potassium Level 3.9 mmol/L (3.5-5.1) Chloride Level 107 mmol/L (98-107) Carbon Dioxide Level 29 mmol/L (21-32) Anion Gap 7 (6-14) Blood Urea Nitrogen 15 mg/dL (8-26) Creatinine 1.7 mg/dL (0.7-1.3) Estimated GFR (Cockcroft-Gault) 40.4 Glucose Level 120 mg/dL (70-99) Lactic Acid Level 1.9 mmol/L (0.4-2.0) Calcium Level 8.6 mg/dL (8.5-10.1) Total Bilirubin 0.3 mg/dL (0.2-1.0) Direct Bilirubin 0.1 mg/dL (0.0-0.2) Aspartate Amino Transf (AST/SGOT) 11 U/L (15-37) Alanine Aminotransferase (ALT/SGPT) 16 U/L (16-63) Alkaline Phosphatase 71 U/L (46-116) Troponin I Quantitative < 0.017 ng/mL (0-0.055) < 0.017 ng/mL (0-0.055) ZN-Tvp-[id number]-Type Natriuretic Peptide 200 pg/mL (0-124) Total Protein 7.3 g/dL (6.4-8.2) Albumin 3.7 g/dL (3.4-5.0) Lipase 136 U/L (73-393) Urine Collection Type Unknown Urine Color Yellow Urine Clarity Clear Urine pH 6.0 Urine Specific [place] 1.020 Urine Protein Neg (NEG-TRACE) Urine Glucose (UA) Neg mg/dL (NEG) Urine Ketones (Stick) Trace mg/dL (NEG) Urine Blood Mod (NEG) Urine Nitrite Neg (NEG) Urine Bilirubin Neg (NEG) Urine Urobilinogen Dipstick 4 mg/dL (0.2 mg/dL) Urine Leukocyte Esterase Neg (NEG) Urine RBC 6-10 /HPF (0-2) Urine WBC Rare /HPF (0-4) Urine Squamous Epithelial Cells Occ /LPF Urine Bacteria 0 /HPF (0-FEW) Nasal Screen MRSA (PCR) Negative (Negative) Magnesium Level 2.1 mg/dL (1.8-2.4) Test 02/04/17 16:20 02/05/17 05:56 Troponin I Quantitative < 0.017 ng/mL (0-0.055) White Blood Count 8.0 x10^3/uL (4.0-11.0) Red Blood Count 3.72 x10^6/uL (4.30-5.70) Hemoglobin 12.1 g/dL (13.0-17.5) Hematocrit 35.8 % (39.0-53.0) Mean Corpuscular Volume 96 fL (79-100) Mean Corpuscular Hemoglobin 33 pg (25-35) Mean Corpuscular Hemoglobin Concent 34 g/dL (31-37) Red Cell Distribution Width 14.3 % (11.5-14.5) Platelet Count 150 x10^3/uL (140-400) Neutrophils (%) (Auto) 57 % (31-73) Lymphocytes (%) (Auto) 36 % (24-48) Monocytes (%) (Auto) 6 % (0-9) Eosinophils (%) (Auto) 1 % (0-3) Basophils (%) (Auto) 1 % (0-3) Neutrophils # (Auto) 4.6 x10^3uL (1.8-7.7) Lymphocytes # (Auto) 2.9 x10^3/uL (1.0-4.8) Monocytes # (Auto) 0.5 x10^3/uL (0.0-1.1) Eosinophils # (Auto) 0.1 x10^3/uL (0.0-0.7) Basophils # (Auto) 0.0 x10^3/uL (0.0-0.2) Sodium Level 146 mmol/L (136-145) Potassium Level 4.0 mmol/L (3.5-5.1) Chloride Level 111 mmol/L (98-107) Carbon Dioxide Level 28 mmol/L (21-32) Anion Gap 7 (6-14) Blood Urea Nitrogen 12 mg/dL (8-26) Creatinine 1.6 mg/dL (0.7-1.3) Estimated GFR (Cockcroft-Gault) 43.3 BUN/Creatinine Ratio 8 (6-20) Glucose Level 137 mg/dL (70-99) Calcium Level 7.8 mg/dL (8.5-10.1) Magnesium Level 2.0 mg/dL (1.8-2.4) Total Bilirubin 0.2 mg/dL (0.2-1.0) Aspartate Amino Transf (AST/SGOT) 10 U/L (15-37) Alanine Aminotransferase (ALT/SGPT) 12 U/L (16-63) Alkaline Phosphatase 57 U/L (46-116) Total Protein 6.0 g/dL (6.4-8.2) Albumin 2.9 g/dL (3.4-5.0) Albumin/Globulin Ratio 0.9 (1.0-1.7) Brief Hospital Course This is a 66-year-old male who states he got up in the middle of the night to go to the bathroom, he was in the hallway and felt like he was going to pass out. He did pass out. He does not think that he was out very long. He was in the process of easing himself to the floor. And did not sustain any injury that he is aware of. He also reports some increasingly shortness of breath over the last couple of days more so than normal. Particularly with exertion. Denies chest pain.Seen by cardiology and evaluated and will need a holter monitor as an outpatient. No further syncopy in the hospital, as he has a normally low blood pressure it is possible the syncopy was due to hypotention. He had some periods of bradycardia with heart rates in the 40's but he was asynptomatic. Discharge Information Condition at Discharge: Improved, Stable Follow Up: Weeks (see Dr Wynn in a week.) Disposition/Orders: D/C to Home Dischare Medications Current Medications Ondansetron HCl (Zofran) 4 mg PRN Q4HRS PRN IV NAUSEA/VOMITING; Start 02/04/17 at 05:45; Stop 02/05/17 at 05:44; Status Cancel Morphine Sulfate (Morphine 2mg Syringe) 2 mg PRN Q2HR PRN IV PAIN; Start at 05:45; Stop 02/05/17 at 05:44; Status DC Sodium Chloride 1,000 ml @ 100 mls/hr Q10H IV Last administered on 02/05/17 01:36; Start 02/04/17 at 05:35; Stop 02/05/17 at 05:34; Status DC Ondansetron HCl (Zofran) 4 mg PRN Q8HRS PRN IV NAUSEA/VOMITING; Start 02/04/17 at 08:00; Stop 02/05/17 at 09:36; Status DC Acetaminophen (Tylenol) 650 mg Q6HRS PO ; Start 02/04/17 at 12:00; Stop at 12:00; Status DC Aspirin (Children'S Aspirin) 81 mg DAILY PO ; Start 02/05/17 at 09:00; Stop at 09:00; Status DC Clopidogrel Bisulfate (Plavix) 75 mg DAILY PO Last administered on 02/05/17 07 :25; Start 02/04/17 at 10:00; Stop 02/05/17 at 09:36; Status DC Docusate Sodium (Colace) 100 mg BID PO ; Start 02/04/17 at 10:00; Stop 02/04/17 at 10:26; Status DC Albuterol/ Ipratropium (Duoneb) 3 ml QID NEB Last administered on 02/05/17 05: 50; Start 02/04/17 at 10:00; Stop 02/05/17 at 09:36; Status DC Nitroglycerin (Nitrostat) 0.4 mg PRN Q5MIN PRN SL CHEST PAIN; Start 02/04/17 at 09:15; Stop 02/05/17 at 09:36; Status DC Oxycodone/ Acetaminophen (Percocet 5/325) 1 tab Q6HRS PO ; Start 02/04/17 at 12: 00; Stop 02/04/17 at 12:00; Status DC Potassium Chloride (Micro-K) 10 meq DAILY PO ; Start 02/05/17 at 10:00; Stop at 10:00; Status DC Tramadol HCl (Ultram) 50 mg PRN Q6HRS PRN PO PAIN; Start 02/04/17 at 09:15; Stop 02/05/17 at 09:36; Status DC Gabapentin (Neurontin) 600 mg QID PO Last administered on 02/05/17 07:24; Start 02/04/17 at 10:00; Stop 02/05/17 at 09:36; Status DC Pantoprazole Sodium (Protonix) 40 mg DAILYAC PO Last administered on 02/05/17 07:24; Start 02/04/17 at 10:00; Stop 02/05/17 at 09:36; Status DC Non-Formulary Medication 18 mcg BID IH ; Start 02/04/17 at 21:00; Stop 02/04/17 at 21:00; Status DC Aspirin (Children'S Aspirin) 81 mg DAILY PO ; Start 02/04/17 at 10:00; Stop at 10:26; Status DC Oxycodone/ Acetaminophen (Percocet 5/325) 1 tab PRN Q6HRS PRN PO PAIN; Start at 12:00; Stop 02/05/17 at 09:36; Status DC Acetaminophen (Tylenol) 650 mg PRN Q6HRS PRN PO FEVER; Start 02/04/17 at 12:00 ; Stop 02/05/17 at 09:36; Status DC Zolpidem Tartrate (Ambien) 5 mg PRN QHS PRN PO INSOMNIA Last administered on 21:15; Start 02/04/17 at 18:30; Stop 02/05/17 at 09:36; Status DC Active Scripts Active Reported Ultram (Tramadol HCl) 50 Mg Tablet 50 Mg PO PRN Q6HRS PRN Spiriva (Tiotropium [place]) 18 Mcg Cap.w.dev 18 Mcg IH BID NITROGLYCERIN SubLingual (Nitroglycerin) 0.4 Mg Tab.subl 0.4 Mg SL PRN Q5MIN PRN Potassium Chloride 10 Meq Capsule.er 10 Meq PO DAILY PRN Clopidogrel (Clopidogrel Bisulfate) 75 Mg Tablet 75 Mg PO DAILY Omeprazole 20 Mg Capsule.dr 20 Mg PO BID Linzess (Linaclotide) 145 Mcg Capsule 145 Mcg PO DAILY Furosemide 20 Mg Tablet 20 Mg PO DAILY PRN Duoneb 0.5-3(2.5) Mg/3 Ml (Albuterol/Ipratropium) 3 Ml Ampul.neb 3 Ml NEB QID Gabapentin 600 Mg Tablet 600 Mg PO QID Patient Instructions Patient Instuctions See [employer]. Typwritten instructions given as to the appointments he needs to make for follow-up ADONIS HWANG DO Feb 05, 2017 13:16
--- NOTE | 2017-02-06 00:03 | ACF ---
Admission Criteria Forms SYNCOPE Clinical Indications for Admission to Inpatient Care ( Place 'X' for any and all applicable criteria): Admission is indicated for syncope and ANY ONE of the following (1)(2)(3)(4)(5) (6)(7) : [X]I. Inpatient admission required rather than observation care (Also use Syncope: Observation Care Criteria as appropriate) because of ANY ONE of the following: [X]a) Hemodynamic instability that is severe or persistent [ ]b) Cardiac arrhythmias of immediate concern identified or strongly suspected (eg, needs electrophysiologic study) [ ]c) Acute coronary syndrome identified (Also use Myocardial Infarction or Angina Criteria form ) [ ]d) Structural cardiac disorder (eg, aortic stenosis) suspected as cause that requires immediate correction [X]e) Respiratory symptoms (eg, dyspnea, tachypnea) that are severe or persistent [ ]f) Neurologic signs or symptoms that are severe or persistent ( eg, stroke, seizures, altered mental status) [ ]g) Severe electrolyte abnormalities requiring inpatient care [ ]h) Supplemental oxygen or respiratory treatment for over 24 hrs that are performable only in acute inpatient setting [ ]i) IV fluid to replace significant ongoing (eg, for over 24 hrs ) losses (>3 L/m2 per day) [ ]j) Continuous intravenous infusion of anticoagulation, platelet inhibitor, vasoactive, or antiarrhythmic medication(15)(16) [ ]k) Pulmonary artery catheter monitoring [ ]l) Temporary pacemaker placement(17) [ ]m) Emergent cardioversion(18) [ ]n) Other conditions, treatment or monitoring requiring inpatient admission [ ]II. Suspicion of imminently dangerous cause (eg, rare causes like pericardial tamponade, pulmonary embolism) [ ]III. Syncope causing severe injury requiring hospitalization Extended stay beyond goal length of stay may be needed for(28) [ ]a) Dangerous arrhythmia(15)(23)(27)(29) [ ]b) Myocardial ischemia [ ]c) Seizure disorder [ ]d) Syncope-related injuries The original [employer] content created by [employer] has been revised. The portions of the content which have been revised are identified through the use of italic text or in bold, and [employer] has neither reviewed nor approved the modified material. All other unmodified content is copyright [employer]. Please see references footnoted in the original [facility] edition 2016 Admission Criteria Met?: Yes MICHELLE DU Feb 06, 2017 00:03
== END 2017-02-05 09:35 | disposition home or self-care (01) ==
LOC: ER 03:29 → ICU 05:37
PROVIDERS: ADMIT Family Medicine; ATTEND Family Medicine
DX: R55 Syncope and collapse (principal); I73.9 Peripheral vascular disease, unspecified; K59.09 Other constipation; E03.9 Hypothyroidism, unspecified; J44.9 Chronic obstructive pulmonary disease, unspecified; I12.9 Hypertensive chronic kidney disease with stage 1 through stage 4 chronic kidney disease, or unspecified chronic kidney disease; N18.3 Chronic kidney disease, stage 3 (moderate); N40.0 Benign prostatic hyperplasia without lower urinary tract symptoms; I25.10 Atherosclerotic heart disease of native coronary artery without angina pectoris; G47.33 Obstructive sleep apnea (adult) (pediatric); I25.2 Old myocardial infarction; G25.0 Essential tremor; G62.9 Polyneuropathy, unspecified; I65.29 Occlusion and stenosis of unspecified carotid artery; F17.210 Nicotine dependence, cigarettes, uncomplicated; W18.30XA Fall on same level, unspecified, initial encounter; Z85.528 Personal history of other malignant neoplasm of kidney; Z82.49 Family history of ischemic heart disease and other diseases of the circulatory system
CPT/HCPCS: 36415; 71010; 80048; 80053; 80076; 81001; 83605; 83690; 83735; 83880; 84484; 85027; 87641; 93005; 93306; 93880; 94640; 96360; 96361; 97161; 97166; 99285; G0378; G0379; G8978; G8979; G8980; J7030; J7620

== ENCOUNTER 2019-07-25 15:33 | Emergency (ER) | payer OTHER, MEDICARE ==
[~2019-07-25] VITALS: Ht 188 cm; Wt 71.5 kg
[2019-07-25 15:33] VITALS: BP 140/60
[~2019-07-25 15:33] MED LIST: ACET160S PO; ACET325T9 PO; ASPI-630 PO; CLOP75TA PO; CLOP75TA57 PO; DOCU100C28 PO; FURO20TA3 PO; GABA600T7 PO; IPRA3AMP29 NEB; IPRA4AER INH; LINA145C PO; NITR0.4T22 SL; OMEP20CA16 PO; OXYC1TAB15 PO; POTA10CA PO; TIOT18CA IH; TRAM-48 PO
[2019-07-25] MEDS ORDERED: IV NORMAL SALINE 1,000ML 1,000 ML IV ONE (16:00)
[2019-07-25 16:10] LABS: BASO % 1 % (0-3); EOS % 0 % (0-3); HEMATOCRIT 40.5 % (39.0-53.0); HEMOGLOBIN 13.8 g/dL (13.0-17.5); LYMPH # 1.6 x10^3/uL (1.0-4.8); LYMPH % 20 % (24-48); MEAN CORPUSCULAR HEMOGLOBIN 34 pg (25-35); MEAN CORPUSCULAR HGB CONC 34 g/dL (31-37); MEAN CORPUSCULAR VOLUME 98 fL (79-100); MONO # 0.7 x10^3/uL (0.0-1.1); MONO % 9 % (0-9); NEUT # 5.6 x10^3uL (1.8-7.7); NEUT % 70 % (31-73); PLATELET COUNT 160 x10^3/uL (140-400); RED BLOOD COUNT 4.11 x10^6/uL (4.30-5.70); RED CELL DISTRIBUTION WIDTH 14.5 % (11.5-14.5)
[2019-07-25 16:12] LABS: CREATININE 1.5 mg/dL (0.7-1.3); GFR 46.3; POTASSIUM 3.9 mmol/L (3.5-5.1)
[2019-07-25 16:18] LABS: ALBUMIN/GLOBULIN RATIO 1.1 (1.0-1.7); TOTAL BILIRUBIN 0.6 mg/dL (0.2-1.0); TOTAL PROTEIN 7.7 g/dL (6.4-8.2)
--- NOTE | 2019-07-25 17:03 | RAD ---
Bilateral lower extremity arterial Doppler ultrasound HISTORY: Bilateral leg cramps TECHNIQUE: Color Doppler, grayscale and duplex analysis performed of the right and left lower extremity arterial structures, from the common femoral artery through the runoff vessels. COMPARISON: None are available All velocity measurements are in centimeters per second. Right leg: Triphasic waveforms at the right, femoral and proximal through mid superficial femoral arteries. Biphasic waveforms from the distal superficial femoral artery through the runoff arteries. No significant segmental velocity elevation to suggest a critical stenosis. No evidence of occlusion. Left leg: Triphasic waveforms at the femoropopliteal arteries and posterior tibial artery. Biphasic waveform at the peroneal and anterior tibial artery. Monophasic waveform at the dorsalis pedis artery. No significant segmental velocity elevation to suggest a critical stenosis. No evidence of occlusion. IMPRESSION: Bilateral biphasic and monophasic waveforms, suggests some atherosclerotic disease. However, no sonographic evidence of occlusion or critical stenosis. Electronically signed by: Raheem Ortiz MD (07/25/2019 5:00 PM) [facility]
--- NOTE | 2019-07-25 17:10 | PHYS DOC ---
Past History Past Medical History: No Pertinent History, Anxiety, Arthritis Past Surgical History: No Surgical History Smoking: Non-smoker Alcohol Use: None Drug Use: None Adult General Chief Complaint Chief Complaint: LOWER EXT PAIN HPI HPI Patient is a male who presented to ER today for evaluation of bilateral lower extremity pain and cramping started about 2 hours ago. Patient denies any swelling, no injury, no trouble breathing, no chest pain. He was recently put on Paxil for anxiety . Palpation patient on the calfs cause more pain. All other ROS is negative unless otherwise noted in HPI Review of Systems Review of Systems See above Current Medications Current Medications Current Medications Medications (Trade) Dose Ordered Sig/Fritz Start Time Stop Time Status Last Admin Dose Admin Sodium Chloride 1,000 ml @ 1,000 mls/hr 1X ONCE 07/25/19 16:00 07/25/19 16:59 DC 07/25/19 15:59 1,000 MLS/HR Allergies Allergies Allergies Coded Allergies Type Severity Reaction Last Updated Verified No Known Drug Allergies 02/04/17 No Physical Exam Physical Exam See above Constitutional: Well developed, well nourished, no acute distress, non-toxic appearance. [] HENT: Normocephalic, atraumatic, bilateral external ears normal, oropharynx moist, no oral exudates, nose normal. [] Eyes: PERRLA, EOMI, conjunctiva normal, no discharge. [] Neck: Normal range of motion, no tenderness, supple, no stridor. [] Cardiovascular:Heart rate regular rhythm, no murmur [] Lungs & Thorax: Bilateral breath sounds clear to auscultation [] Abdomen: Bowel sounds normal, soft, no tenderness, no masses, no pulsatile masses. [] Skin: Warm, dry, no erythema, no rash. [] Back: No tenderness, no CVA tenderness. [] Extremities: Bilateral calf area tender to palpation, no swelling. WEAK DORSALIS PEDIS PULSES BILATERALLY. Neurologic: Alert and oriented X 3, normal motor function, normal sensory function, no focal deficits noted. [] Psychologic: Affect normal, judgement normal, mood normal. [] Current Patient Data Lab Results Laboratory Tests Test 07/25/19 15:51 White Blood Count 8.0 x10^3/uL (4.0-11.0) Red Blood Count 4.11 x10^6/uL (4.30-5.70) L Hemoglobin 13.8 g/dL (13.0-17.5) Hematocrit 40.5 % (39.0-53.0) Mean Corpuscular Volume 98 fL (79-100) Mean Corpuscular Hemoglobin 34 pg (25-35) Mean Corpuscular Hemoglobin Concent 34 g/dL (31-37) Red Cell Distribution Width 14.5 % (11.5-14.5) Platelet Count 160 x10^3/uL (140-400) Neutrophils (%) (Auto) 70 % (31-73) Lymphocytes (%) (Auto) 20 % (24-48) L Monocytes (%) (Auto) 9 % (0-9) Eosinophils (%) (Auto) 0 % (0-3) Basophils (%) (Auto) 1 % (0-3) Neutrophils # (Auto) 5.6 x10^3uL (1.8-7.7) Lymphocytes # (Auto) 1.6 x10^3/uL (1.0-4.8) Monocytes # (Auto) 0.7 x10^3/uL (0.0-1.1) Eosinophils # (Auto) 0.0 x10^3/uL (0.0-0.7) Basophils # (Auto) 0.0 x10^3/uL (0.0-0.2) Sodium Level 141 mmol/L (136-145) Potassium Level 3.9 mmol/L (3.5-5.1) Chloride Level 104 mmol/L (98-107) Carbon Dioxide Level 29 mmol/L (21-32) Anion Gap 8 (6-14) Blood Urea Nitrogen 18 mg/dL (8-26) Creatinine 1.5 mg/dL (0.7-1.3) H Estimated GFR (Cockcroft-Gault) 46.3 BUN/Creatinine Ratio 12 (6-20) Glucose Level 82 mg/dL (70-99) Calcium Level 9.0 mg/dL (8.5-10.1) Total Bilirubin 0.6 mg/dL (0.2-1.0) Aspartate Amino Transferase (AST) 19 U/L (15-37) Alanine Aminotransferase (ALT) 29 U/L (16-63) Alkaline Phosphatase 70 U/L (46-116) Total Protein 7.7 g/dL (6.4-8.2) Albumin 4.0 g/dL (3.4-5.0) Albumin/Globulin Ratio 1.1 (1.0-1.7) EKG EKG [] Radiology/Procedures Radiology/Procedures [][address] [address] IMAGING REPORT Signed PATIENT: SUYAPA KENNEY ACCOUNT: [id number] : 1950 LOCATION: ER AGE: 69 SEX: M EXAM STATUS: REG ER ORD. PHYSICIAN: REMIGIO PETE DO REASON: LEGS PAIN PROCEDURE: DUPLEX LOWER EXTREMITY BILAT Bilateral lower extremity arterial Doppler ultrasound HISTORY: Bilateral leg cramps TECHNIQUE: Color Doppler, grayscale and duplex analysis performed of the right and left lower extremity arterial structures, from the common femoral artery through the runoff vessels. COMPARISON: None are available All velocity measurements are in centimeters per second. Right leg: Triphasic waveforms at the right, femoral and proximal through mid superficial femoral arteries. Biphasic waveforms from the distal superficial femoral artery through the runoff arteries. No significant segmental velocity elevation to suggest a critical stenosis. No evidence of occlusion. Left leg: Triphasic waveforms at the femoropopliteal arteries and posterior tibial artery. Biphasic waveform at the peroneal and anterior tibial artery. Monophasic waveform at the dorsalis pedis artery. No significant segmental velocity elevation to suggest a critical stenosis. No evidence of occlusion. IMPRESSION: Bilateral biphasic and monophasic waveforms, suggests some atherosclerotic disease. However, no sonographic evidence of occlusion or critical stenosis. Electronically signed by: Raheem Ortiz MD (07/25/2019 5:00 PM) [facility] DICTATED AND SIGNED BY: RAHEEM ORTIZ MD DATE: 07/25/19 1700 CC: NON,STAFF; REMIGIO PETE DO ~ Course & Med Decision Making Course & Med Decision Making Pertinent Labs and Imaging studies reviewed. (See chart for details) [] Dragon Disclaimer Dragon Disclaimer This electronic medical record was generated, in whole or in part, using a voice recognition dictation system. Departure Departure: Impression: Primary Impression: Bilateral leg cramps Disposition: HOME, SELF-CARE Condition: STABLE Referrals: NON,STAFF (PCP) FOLLOW UP WITH YOUR DOCTOR NEXT WEEK FOR REEVALUATION. Patient Instructions: Leg Cramps Additional Instructions: Thank you for visiting [facility]. We appreciate you trusting us with your care. If any additional problems come up don't hesitate to return to visit us. Please follow up with your primary care provider so they can plan a dditional care if needed and know about the problem that you had. If symptoms worsen come back to the Emergency Department. Any concerning symptoms that start such as chest pain, shortness of air, weakness or numbness on one side of the body, running high fevers or any other concerning symptoms return to the ER. REMIGIO PETE DO Jul 25, 2019 17:10
[2019-07-25] MEDS ORDERED: KETOROLAC 15 MG/ML VIAL. IVP ONE (17:15)
[2019-07-25] MEDS ORDERED: MORPHINE SULFATE 2 MG/ML DISP.SYRIN. IV ONE (17:15)
== END 2019-07-25 17:47 | disposition home or self-care (01) ==
LOC: ER 15:33
DX: R25.2 Cramp and spasm (principal); M79.605 Pain in left leg; M79.604 Pain in right leg; M19.90 Unspecified osteoarthritis, unspecified site
CPT/HCPCS: 36415; 80053; 85025; 93925; 96374; 96375; 99285; J1885; J2270; 96361; J7030

== ENCOUNTER 2019-07-27 16:54 | Emergency (ER) | payer MEDICARE, OTHER ==
[~2019-07-27] VITALS: Ht 188 cm; Wt 72.6 kg
--- NOTE | 2019-07-27 17:13 | PHYS DOC ---
Past History Past Medical History: No Pertinent History, Anxiety, Arthritis Additional Past Medical Histor: DDD, thyroid cancer and peripheral vascular disease Past Surgical History: Other Additional Past Surgical Histo: L nephrectomy Smoking: Less than 1pk/day Alcohol Use: None Drug Use: None Adult General Chief Complaint Chief Complaint: SHORTNESS OF BREATH HPI HPI A 69-year-old male presents with shortness of breath that has worsened over the last 3 days. He reports being febrile today up to 101F. Patient is on 2 L oxygen at home. He tried multiple breathing treatments with little relief. Patient is a daily smoker and has hx of COPD. Patient denies chest pain, palpitations, or diaphoresis. Review of Systems Review of Systems Constitutional: Fever and chills. Eyes: Denies redness or eye pain HENT: Denies nasal congestion or sore throat Respiratory: Reports cough and shortness of breath. Cardiovascular: Denies chest pain or palpitations GI: Denies abdominal pain, nausea, or vomiting Musculoskeletal: Denies back pain or joint pain Integument: Denies rash or skin lesions Neurologic: Denies headache, focal weakness or sensory changes Complete systems were reviewed and found to be within normal limits, except as documented in this note. Allergies Allergies Allergies Coded Allergies Type Severity Reaction Last Updated Verified No Known Drug Allergies 02/04/17 No Physical Exam Physical Exam Constitutional: Well developed, well nourished, no acute distress, non-toxic appearance HENT: Normocephalic, atraumatic, oropharynx moist Eyes: PERRL, EOMI, conjunctiva normal, no discharge Neck: Normal range of motion, no tenderness, supple Cardiovascular: Heart rate normal, regular rhythm Lungs & Thorax: Scattered wheezes throughout. Coarse breath sounds. Abdomen: Soft, no tenderness Skin: Warm, dry, no erythema, no rash Extremities: No tenderness, ROM intact, no edema Neurologic: Alert and oriented X 3, no focal deficits noted Psychologic: Affect normal, judgement normal EKG EKG EKG at 1719 shows normal sinus rhythm with a heart rate of [address] segment elevation noted. Radiology/Procedures Radiology/Procedures PROCEDURE: PORTABLE CHEST 1V AP chest. HISTORY: Dyspnea AP view was taken of the chest. There changes suggesting chronic obstructive pulmonary disease. Heart is normal in size. There is no pleural effusion. There are no confluent infiltrates. Has been no significant change compared to the prior study from January 2017. IMPRESSION: 1. No acute infiltrates. Electronically signed by: Dwight De Santiago MD (07/27/2019 5:22 PM) [facility] Course & Med Decision Making Course & Med Decision Making Pertinent Labs and Imaging studies reviewed. (See chart for details) Patient presents with history of present illness and physical exam consistent for exacerbation of chronic COPD. Symptomatic treatment provided with respiratory nebs and steroid. Labs obtained and posted to chart. Rapid Influenza negative. Chest x-ray without acute process. Sats stable on patient's chronic oxygen requirement. Patient offered admission for further evaluation and reena atment. Patient elects to trial outpatient therapy at this time. Patient stable for discharge with outpatient follow-up with PCP. Discussed findings and plan with patient, who acknowledges understanding and agreement. Dragon Disclaimer Dragon Disclaimer This electronic medical record was generated, in whole or in part, using a voice recognition dictation system. Departure Departure: Impression: Primary Impression: COPD exacerbation Disposition: HOME, SELF-CARE Condition: IMPROVED Referrals: NON,STAFF (PCP) Patient Instructions: Chronic Obstructive Pulmonary Disease Exacerbation, [id number] Scripts Azithromycin (AZITHROMYCIN TABLET) 250 Mg Tablet 1 PKG PO UD for COPD, #6 TAB Take 2 tablets today and then one tablet every day thereafter for the next 4 days Prov: LATRICE VILLASENOR DO 07/27/19 Prednisone (PREDNISONE) 20 Mg Tablet 2 TAB PO DAILY for COPD, #8 TAB Start this prescription tomorrow, Friday07/28/2019 Prov: LATRICE VILLASENOR DO 07/27/19 Benzonatate (TESSALON PERLE) 100 Mg Capsule 1 CAP PO TID PRN for COUGH, #21 CAP Prov: LATRICE VILLASENOR DO 07/27/19 Guaifenesin/D-Methorphan Hb/Pe (ROBITUSSIN COUGH-COLD CF LIQ) 118 Ml Liquid 10 ML PO Q4HRS PRN for COUGH, #120 LIQUID Prov: LATRICE VILLASENOR DO 07/27/19 LATRICE VILLASENOR DO Jul 27, 2019 17:13
[2019-07-27] MEDS ORDERED: DEXAMETHASONE SOD PHOS 10 MG/ML VIAL IV ONE (17:15)
[2019-07-27] MEDS ORDERED: IV NORMAL SALINE 1,000ML 1,000 ML IV ONE (17:15)
[2019-07-27] MEDS ORDERED: IPRATRPIUM/ALBUTEROL 0.5/2.5MG 3 ML NEBU. NEB ONE (17:15)
--- NOTE | 2019-07-27 17:26 | RAD ---
AP chest. HISTORY: Dyspnea AP view was taken of the chest. There changes suggesting chronic obstructive pulmonary disease. Heart is normal in size. There is no pleural effusion. There are no confluent infiltrates. Has been no significant change compared to the prior study from January 2017. IMPRESSION: 1. No acute infiltrates. Electronically signed by: Dwight De Santiago MD (07/27/2019 5:22 PM) [facility]
--- NOTE | 2019-07-27 17:32 | EKG ---
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
[2019-07-27 17:51] LABS: BASO # 0.1 x10^3/uL (0.0-0.2); BASO % 1 % (0-3); EOS % 0 % (0-3); HEMATOCRIT 38.7 % (39.0-53.0); HEMOGLOBIN 12.9 g/dL (13.0-17.5); LYMPH # 1.3 x10^3/uL (1.0-4.8); LYMPH % 18 % (24-48); MEAN CORPUSCULAR HEMOGLOBIN 33 pg (25-35); MEAN CORPUSCULAR HGB CONC 33 g/dL (31-37); MEAN CORPUSCULAR VOLUME 98 fL (79-100); MONO # 0.8 x10^3/uL (0.0-1.1); MONO % 11 % (0-9); NEUT # 5.1 x10^3uL (1.8-7.7); NEUT % 70 % (31-73); PLATELET COUNT 135 x10^3/uL (140-400); RED BLOOD COUNT 3.94 x10^6/uL (4.30-5.70); RED CELL DISTRIBUTION WIDTH 14.4 % (11.5-14.5); WHITE BLOOD COUNT 7.4 x10^3/uL (4.0-11.0)
[2019-07-27 18:01] LABS: CALCIUM 8.1 mg/dL (8.5-10.1); CREATININE 1.6 mg/dL (0.7-1.3); GFR 42.9; POTASSIUM 4.2 mmol/L (3.5-5.1)
[2019-07-27 18:15] LABS: ALBUMIN 3.6 g/dL (3.4-5.0); ALBUMIN/GLOBULIN RATIO 1.1 (1.0-1.7); INFLUENZA A PATIENT NEGATIVE (NEGATIVE); INFLUENZA B PATIENT NEGATIVE (NEGATIVE); MAGNESIUM 1.9 mg/dL (1.8-2.4); TOTAL BILIRUBIN 0.6 mg/dL (0.2-1.0); TOTAL PROTEIN 6.8 g/dL (6.4-8.2)
[2019-07-27] MEDS ORDERED: PRED20TA PO (18:45)
[2019-07-27] MEDS ORDERED: AZIT250T6 PO (18:45)
[2019-07-27] MEDS ORDERED: GUAI118L3 PO (18:45)
[2019-07-27] MEDS ORDERED: BENZ100C PO (18:45)
[2019-07-27 19:03] VITALS: BP 114/50
== END 2019-07-27 19:02 | disposition home or self-care (01) ==
LOC: ER 16:54
DX: J44.1 Chronic obstructive pulmonary disease with (acute) exacerbation (principal); F41.9 Anxiety disorder, unspecified; M19.90 Unspecified osteoarthritis, unspecified site; F17.200 Nicotine dependence, unspecified, uncomplicated
CPT/HCPCS: 36415; 71045; 80053; 82553; 83605; 83735; 83880; 84484; 85025; 87804; 93005; 94640; 96374; 99285; J1100; J7620; 96361; J7030

== ENCOUNTER 2019-07-29 01:25 | Inpatient (IN) | payer OTHER, MEDICAID ==
[~2019-07-29] VITALS: Ht 188 cm; Wt 32.2 kg
[~2019-07-29 01:25] MED LIST changes: +AZIT250T6 PO; +BENZ100C PO; +GUAI118L3 PO; +PRED20TA PO
[2019-07-29] MEDS ORDERED: IPRATRPIUM/ALBUTEROL 0.5/2.5MG 3 ML NEBU. ONE (01:35)
[2019-07-29] MEDS ORDERED: IV DEXTROSE 5% 100 ML IV ONE (01:43)
[2019-07-29] MEDS ORDERED: DOXYCYCLINE HYCLATE 100 MG VIAL IV ONE (01:43)
--- NOTE | 2019-07-29 01:50 | PHYS DOC ---
Past History Past Medical History: Anxiety, Arthritis, COPD, Renal Failure Additional Past Medical Histor: DDD, thyroid cancer and peripheral vascular disease Past Surgical History: Cholecystectomy, Other Additional Past Surgical Histo: L nephrectomy, thyroidectomy Smoking: Less than 1pk/day Alcohol Use: None Drug Use: None Adult General Chief Complaint Chief Complaint: SHORTNESS OF BREATH HPI HPI Patient is a 69-year-old male brought in by ambulance with shortness of breath. Seen here couple days ago for COPD exacerbation getting worse usually uses oxygen at night but now requiring oxygen [id number] and gets very short of breath and desats to the 70s with exertion he tells me medics noted wheezing in all roberto and a sat in the mid 90s patient denies chest pain is coughing taking medications as prescribed. Symptoms are moderate to severe in nature Review of Systems Review of Systems Limited by respiratory distress ocumented in this note. Current Medications Current Medications Current Medications Medications (Trade) Dose Ordered Sig/Fritz Start Time Stop Time Status Last Admin Dose Admin Albuterol Sulfate (Ventolin) 10 mg 1X ONCE 07/29/19 02:00 07/29/19 02:01 Albuterol/ Ipratropium (Duoneb) 3 ml STK-MED ONCE 07/29/19 01:35 07/29/19 01:35 DC Dextrose 100 ml @ As Directed STK-MED ONCE 07/29/19 01:43 07/29/19 01:43 DC Doxycycline Hyclate 100 mg STK-MED ONCE 07/29/19 01:43 07/29/19 01:43 DC Doxycycline Hyclate 100 mg/ Dextrose 100 ml @ 50 mls/hr 1X ONCE 07/29/19 02:00 07/29/19 03:59 Methylprednisolone Sodium Succinate (SOLU-Medrol 125MG VIAL) 125 mg 1X ONCE 07/29/19 02:00 07/29/19 02:01 Allergies Allergies Allergies Coded Allergies Type Severity Reaction Last Updated Verified No Known Drug Allergies 02/04/17 No Physical Exam Physical Exam Constitutional: Well developed, well nourished moderate to severe distress HENT: Normocephalic, atraumatic, bilateral external ears normal, oropharynx moist, no oral exudates, nose normal. [] Eyes: PERRLA, EOMI, conjunctiva normal, no discharge. [] Neck: Normal range of motion, no tenderness, supple, no stridor. [] Cardiovascular: Mild tachycardia Lungs & Thorax: Wheezing noted with speaking short sentences some tripoding noted Abdomen: Bowel sounds normal, soft, no tenderness, no masses, no pulsatile m asses. [] Skin: See below Extremities: Chronic appearing skin changes anterior shins Neurologic: Alert and oriented X 3, normal motor function, normal sensory function, no focal deficits noted. [] Psychologic: Affect normal, judgement normal, mood normal. [] Current Patient Data Vital Signs Vital Signs Date Time Temp Pulse Resp B/P (MAP) Pulse Ox O2 Delivery O2 Flow Rate FiO2 07/29/19 01:29 97.1 106 24 96 Nasal Cannula 6.0 EKG EKG Sinus tachycardia rate 103 QTc 474 no acute STEMI was seen. Borderline ST depressions in the inferior leads no STEMI though[] Radiology/Procedures Radiology/Procedures [] Impressions: Chest x-ray final read is pending possible subtle fracture at the right midlung field Course & Med Decision Making Course & Med Decision Making Pertinent Labs and Imaging studies reviewed. (See chart for details) [] Critical care time was 35 minutes exclusive of procedures. Severe respiratory distress requiring BiPAP ABG interpretation and close monitoring and reevaluation Patient is a 69-year-old male with known COPD prior DC in the past thyroid cancer is presenting with worsening shortness of breath diffuse wheezing bi lateral lung roberto maintaining saturation on nasal cannula however given patient's work of breathing after the patient was placed patient on BiPAP and actually improved somewhat. Give doxycycline in case of a subtle pneumonia IV steroids in-line albuterol patient be admitted to the ICU for close monitoring and observation. She currently pending patient moves the service Dr. Mcdaniels lactic mild elevated probably from albuteorl nebs rather than sepsis but ordered iv fluids (gentle due to elev bnp did not want to fluid overload with normal bp) and also iv antibitoics. pt improved after period of bipap in er we will attempt to transition back to NC Oxygen Dragon Disclaimer Dragon Disclaimer This electronic medical record was generated, in whole or in part, using a voice recognition dictation system. Departure Departure: Impression: Primary Impression: COPD exacerbation Disposition: ADMITTED INPATIENT Admitting Physician: Elba Mcdaniels Condition: GUARDED Referrals: NON,STAFF (PCP) AUBREY HEADLEY MD Jul 29, 2019 01:50
[2019-07-29 01:57] LABS: CALCIUM 8.4 mg/dL (8.5-10.1); CREATININE 1.7 mg/dL (0.7-1.3); POTASSIUM 4.6 mmol/L (3.5-5.1)
[2019-07-29] MEDS ORDERED: ALBUTEROL SULFATE 2.5 MG/3 ML NEBU. CONT NEB ONE (02:00)
[2019-07-29] MEDS ORDERED: methylPREDNISolone SOD SUCC PF 125 MG/2 ML VIAL. IV ONE (02:00)
[2019-07-29] MEDS ORDERED: DOXYCYCLINE HYCLATE 100 MG in IV DEXTROSE 5% 100 ML IV ONE (02:00)
[2019-07-29 02:10] LABS: ALBUMIN/GLOBULIN RATIO 1.1 (1.0-1.7); TOTAL BILIRUBIN 0.4 mg/dL (0.2-1.0); TOTAL PROTEIN 7.5 g/dL (6.4-8.2)
[2019-07-29 02:26] LABS: BGAS PH 7.35 (7.35-7.46)
[2019-07-29 02:26] LABS: BASO % 0 % (0-3); EOS % 0 % (0-3); HEMATOCRIT 40.7 % (39.0-53.0); HEMOGLOBIN 13.3 g/dL (13.0-17.5); LYMPH # 1.5 x10^3/uL (1.0-4.8); LYMPH % 8 % (24-48); MEAN CORPUSCULAR HEMOGLOBIN 33 pg (25-35); MEAN CORPUSCULAR HGB CONC 33 g/dL (31-37); MEAN CORPUSCULAR VOLUME 101 fL (79-100); MONO # 1.3 x10^3/uL (0.0-1.1); MONO % 7 % (0-9); NEUT # 15.6 x10^3uL (1.8-7.7); NEUT % 85 % (31-73); PLATELET COUNT 176 x10^3/uL (140-400); RED BLOOD COUNT 4.05 x10^6/uL (4.30-5.70); RED CELL DISTRIBUTION WIDTH 14.4 % (11.5-14.5); WHITE BLOOD COUNT 18.4 x10^3/uL (4.0-11.0)
[2019-07-29 02:48] LABS: % BANDS 11 % (0-9); % LYMPHS 7 % (24-48); % MONOS 7 % (0-10); % SEGS 75 % (35-66); PLT ESTIMATE ADEQUATE (ADEQUATE)
[2019-07-29 02:50] LABS: INFLUENZA A PATIENT NEGATIVE (NEGATIVE); INFLUENZA B PATIENT NEGATIVE (NEGATIVE)
[2019-07-29] MEDS ORDERED: cefTRIAXone SODIUM 1 GM VIAL ONE (02:54)
[2019-07-29] MEDS ORDERED: IV NORMAL SALINE 50ML 50 ML ONE (02:54)
[2019-07-29] MEDS ORDERED: IV NORMAL SALINE 1,000ML 1,000 ML IV ONE (03:00)
--- NOTE | 2019-07-29 03:05 | RAD ---
Chest AP only at 0126: Reason for examination: Short of breath with fever. Comparison is made to previous study dated 07/27/2019 The heart size is normal. Mediastinum is unremarkable. Lung roberto are hyperaerated with no infiltrates or pleural effusions evident. No pneumothorax is seen. No acute bony abnormalities are seen. Impression: Hyperaeration of the lung roberto consistent with COPD. No acute cardiopulmonary disease. Electronically signed by: Sonja Stewart MD (07/29/2019 3:01 AM) [id number]
--- NOTE | 2019-07-29 04:01 | EKG ---
[address] [address] Test Date: 2019-07-29 Test Time: 01:44:32 Pat Name: SUYAPA KENNEY Department: Room: Gender: M Clerk Travel Reservations: : 1950 Requested By: AUBREY HEADLEY Order Number: [id number] Reading MD: Measurements Intervals [place]ar Rate: 103 P: 2 ND: 94 QRS: -47 QRSD: 88 T: 77 QT: 360 QTc: 474 Interpretive Statements SINUS TACHYCARDIA QRS(T) CONTOUR ABNORMALITY CONSIDER ANTEROLATERAL MYOCARDIAL DAMAGE CONSIDER INFERIOR MYOCARDIAL DAMAGE POSSIBLY ABNORMAL ECG RI6.01 No previous ECG available for comparison
[2019-07-29] MEDS: IPRATRPIUM/ALBUTEROL 0.5/2.5MG 3 ML NEBU. NEB SCH ×2 (10:00→10:24)
[2019-07-29 10:24] VITALS: BP 136/65
--- NOTE | 2019-07-29 10:40 | NUR ---
Pain upon coughing to right side abdominal wall. Addendum: 07/29/19 at 1046 by HEATHER SNEED RN Amended: Links added.
[2019-07-29 10:59] VITALS: BP 116/66
[2019-07-29 12:05] VITALS: BP 126/66
[2019-07-29 12:16] LABS: BGAS PH 7.37 (7.35-7.46)
[2019-07-29] MEDS ORDERED: ALBUTEROL SULFATE 2.5 MG/3 ML NEBU. NEB PRN (13:00)
[2019-07-29 13:06] VITALS: BP 151/74
[2019-07-29] MEDS ORDERED: methylPREDNISolone SOD SUCC PF 125 MG/2 ML VIAL. IV SCH (13:30)
[2019-07-29 14:46] VITALS: BP 149/72
[2019-07-29 14:52] LABS: BASO % 0 % (0-3); EOS % 0 % (0-3); HEMATOCRIT 39.5 % (39.0-53.0); LYMPH # 0.5 x10^3/uL (1.0-4.8); LYMPH % 4 % (24-48); MEAN CORPUSCULAR HEMOGLOBIN 33 pg (25-35); MEAN CORPUSCULAR HGB CONC 33 g/dL (31-37); MEAN CORPUSCULAR VOLUME 101 fL (79-100); MONO # 0.5 x10^3/uL (0.0-1.1); MONO % 4 % (0-9); NEUT # 13.2 x10^3uL (1.8-7.7); NEUT % 93 % (31-73); PLATELET COUNT 155 x10^3/uL (140-400); RED BLOOD COUNT 3.92 x10^6/uL (4.30-5.70); RED CELL DISTRIBUTION WIDTH 14.6 % (11.5-14.5); WHITE BLOOD COUNT 14.2 x10^3/uL (4.0-11.0)
[2019-07-29 15:02] LABS: CALCIUM 8.1 mg/dL (8.5-10.1); CREATININE 1.5 mg/dL (0.7-1.3); GFR 46.3; POTASSIUM 4.8 mmol/L (3.5-5.1)
--- NOTE | 2019-07-29 15:07 | RAD ---
CHEST AP ONLY History: Dyspnea Comparison: July 29, 2019 Findings: Hyperinflation. Scattered parenchymal interstitial thickening. No new consolidation. No pleural effusion. Normal heart size. No pneumothorax. Impression: 1. Hyperinflation. 2. Otherwise, negative chest. Electronically signed by: Adonay Schaefer DO (07/29/2019 3:04 PM) [facility]
--- NOTE | 2019-07-29 15:10 | NUR ---
INTUBATION. [address] Daly on unit. intubation equipment prepared. 1520 Etomidate 21mg IVP administered with good effect. At 1522 Anectine 100mg IVP administered. Paralysis achieved, Patient preoxygenated to an SpO2 of 100% with BVM. At [address] Daly without difficulty. 23cm measured at teeth and cuff inflated. ETCO2 of 51 mmHg obtained, equal breath sounds noted, negative sounds over epigastrium. ETT secured with commercial device and placed on vent. Initial settings 16/600/0.5/6. At 1528 Versed 5mg IVP administered for continued sedation. Versed gtt ordered by Dr. Daly.
[2019-07-29] MEDS ORDERED: MIDAZOLAM HCL PF 5 MG/5 ML VIAL. IV ONE ×2 (15:23→15:35)
[2019-07-29] MEDS ORDERED: MIDAZOLAM HCL PF 5 MG/5 ML VIAL. ONE ×2 (15:33→16:00)
--- NOTE | 2019-07-29 15:42 | RAD ---
EXAM: Chest, single view. HISTORY: Intubation. COMPARISON: 07/29/2019 FINDINGS: A frontal view of the chest obtained. There is an endotracheal tube within the mid trachea. There is increased opacity within the right mid thorax possibly due to oblique patient positioning and asymmetric overlying soft tissues or interstitial infiltrate. There is no consolidation, pleural effusion or pneumothorax. The heart is normal in size. There is suspected emphysema. IMPRESSION: 1. Endotracheal tube in expected position. 2. Right mid thorax opacity due to patient positioning or interstitial infiltrate. Electronically signed by: Mayte Duran MD (07/29/2019 3:39 PM) [place] [id number]
[2019-07-29] MEDS ORDERED: MIDAZOLAM 100mg/100ml NS BAG 100 ML IV ONE (15:45)
[2019-07-29] MEDS ORDERED: VECURONIUM 10 MG VIAL. IV ONE (16:00)
[2019-07-29] MEDS ORDERED: IPRATRPIUM/ALBUTEROL 0.5/2.5MG 3 ML NEBU. NEB SCH (16:00)
[2019-07-29] MEDS ORDERED: SUCCINYLCHOLINE 200 MG/10 ML VIAL. ONE (16:00)
[2019-07-29] MEDS ORDERED: ETOMIDATE 40 MG/20 ML VIAL. IV ONE (16:00)
--- NOTE | 2019-07-29 16:30 | NUR ---
Shift summary. 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 Upon arrival of EMS transport, patient arrived on the unit at 0930. BiPap at 12/6 25%. Patient minimally compliant with this. Ativan somewhat successful, but patient grabbing at mask, attempting to remove. Allowed pt respite and utilized NC with which he did well from a numbers perspective, but requiring RR's of 35-40 to remain comfortable. Patient placed on BiPap again and the cycle would repeat. DuoNeb treatments given q4 hours with Albuterol treatments interspersed. Patient increasingly tachypneic, with increased retractions. Minimal air movement upon auscultation. Repeat labs and chest film ordered. Dr. Mcdaniels aware of situation and suggests intubation and transfer of patient to [facility].
--- NOTE | 2019-07-29 16:36 | SSS ---
ADMIT DATE: 07/29/2019 HISTORY OF PRESENT ILLNESS: The patient is a 69-year-old male patient who was brought by ambulance to the Emergency Room of [facility] with a complaint of shortness of breath. He was seen in the Emergency Room about a couple of days ago for COPD exacerbation, getting worse. Usually uses oxygen at night only, but now requiring oxygen around the clock and gets very short of breath and desats to 70% with exertion. He stated the paramedics noted wheezing in all roberto. His oxygen saturation was mid 90. The patient denies any chest pain. He is coughing, taking medication as prescribed; however, symptoms are worsening. He was evaluated in the Emergency Room. His EKG showed that he was in sinus tachycardia with a heart rate of [address] segment elevation, borderline ST depression in inferior leads. His chest x-ray showed hyperinflation of the lungs consistent with COPD, no acute cardiopulmonary disease. His white cell count was 18,400, hemoglobin 13.3, hematocrit 40, MCV 101 and platelet count of 176,000 and his chemistry showed that he has perhaps acute on chronic kidney injury. His blood gases initially showed a pH of 7.35, pCO2 of 42, pO2 of 184, bicarbonate 23, and oxygen saturation was 100% on FiO2 of 40%. His influenza A and B was negative. The patient was admitted to the ICU, was started on IV antibiotic. He did receive ceftriaxone, Medrol Dosepak as well as doxycycline as well as breathing treatment. Unfortunately, the patient continued to be extremely tired, very wheezy and very tachypneic and a decision was made to basically intubate him, sedate him and transfer him to [facility] to continue with them and to consult the bpm architect to continue with mechanical ventilation. Continue with bronchodilator, steroids and IV antibiotic. PAST MEDICAL HISTORY: Significant for severe peripheral vascular disease, chronic constipation, hypothyroidism, multiple syncopal episodes over the last 5 years. He has severe COPD, chronic kidney disease stage 3, benign prostatic hypertrophy, history of kidney cancer, history of bradycardia and hypertension, coronary artery disease, obstructive sleep apnea, coronary artery disease, status post [place], essential tremor and neuropathy. PAST SURGICAL HISTORY: Significant for left sided nephrectomy, multiple vascular stents in his legs and abdomen, nerve transfer, surgery from the left elbow. FAMILY HISTORY: Unobtainable. 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 He was a heavy smoker and has now quit. He does not drink alcohol. ALLERGIES: He has no known drug allergies. MEDICATIONS: He was on following medications. He was on azithromycin 250 mg once a day, ipratropium bromide, albuterol sulfate 3 mL by nebulizer 4 times a day, tiotropium bromide for Spiriva HandiHaler 1 inhalation twice a day, Plavix 75 mg once a day, nitroglycerin 0.4 mg sublingually every 5 minutes x 3, tramadol 50 mg every 6 hours, gabapentin 600 mg q.i.d., potassium chloride 10 mEq daily, furosemide 20 mg daily, benzonatate 100 mg 3 times a day, guaifenesin/dextromethorphan 10 mL every 4 hours, omeprazole 20 mg twice a day, Linzess 145 mcg p.o. daily, prednisone 40 mg daily. REVIEW OF SYSTEMS: As per history of present illness. PHYSICAL EXAMINATION: GENERAL: On arrival to the Emergency Room, the patient was slightly tachypneic. There is no pallor, jaundice, cyanosis or thyromegaly. No jugular venous distention. No lower limb edema. VITAL SIGNS: His heart rate was 106, blood pressure was 124/65, temperature 97.1, respiratory rate was 24, and oxygen saturation was 96% on 6 liters of oxygen. HEAD, EYES, EARS, NOSE AND THROAT: Showed normocephalic, atraumatic. NECK: Supple. HEART: Showed normal first and second heart sounds. No gallop or murmur. CHEST: Showed central trachea, equally reduced expansion, reduced air entry, vesicular sounds with diffuse bilateral wheezing on both sides posteriorly and anteriorly. ABDOMEN: Slightly distended, soft, nontender. NEUROLOGIC: He was initially awake, alert, responding appropriately. All his cranial nerves are intact. EXTREMITIES: He moves extremities without difficulty. LABORATORY DATA: On admission showed a white cell count of 18,000, hemoglobin was 13.3, hematocrit 40, MCV 101 and platelet count of 176,000. His chemistry showed that his serum sodium was 144, potassium 4.6, chloride 105, bicarbonate 25, anion gap of 14, BUN 36, creatinine 1.7, estimated GFR was 40 mL per minute, his glucose 109, calcium was 8.4. Total bilirubin, AST, ALT, alkaline phosphatase were normal. Beta natriuretic peptide was 946. Total protein was 7.5, albumin was 4. His influenza A and B were negative. His chest x-ray showed that he has scattered parenchymal interstitial thickening. No new consolidation, no pleural effusion, normal heart size, no pneumothorax. As the patient started tiring and he is very tachypneic, continue wheezy, a decision was made to intubate him. Has had another chest x-ray after intubation which showed that there is an endotracheal tube within the mid trachea. There is increased opacity within the right mid thorax possibly due to oblique patient's positioning and the symmetric overlying soft tissue interstitial infiltrate. There is no consolidation, pleural effusion or pneumothorax. Heart size is normal. There is suspected emphysema. ASSESSMENT AND PLAN: The patient was basically intubated, mechanically ventilated and sedated. The plan is to transfer him to [facility] ICU to continue with mechanical ventilation. Continue with IV antibiotic, IV Solu-Medrol as well as bronchodilator, to consult the bpm architect. The patient was transferred with [id number] hypoxic respiratory failure, has chronic obstructive pulmonary disease exacerbation, questionable acute bronchitis, chronic kidney disease stage 3, benign prostatic hypertrophy, coronary artery disease, status post myocardial infarction. He has also obstructive sleep apnea, essential tremors and neuropathy. JIE PUGH MD DR: NGOC/jerrod JOB#: [id number] / [id number]
[2019-07-29 16:38] VITALS: BP 117/60
[2019-07-29 17:01] LABS: BGAS PH 7.3 (7.35-7.46)
[2019-07-29] MEDS ORDERED: IV NORMAL SALINE 1,000ML 1,000 ML IV SCH (17:15)
[2019-07-29] MEDS ORDERED: guaiFENesin/PS-EPHED 600/60MG 1 TAB TAB.ER.12H PO SCH (21:00)
[2019-07-29] MEDS ORDERED: MONTELUKAST 10 MG TABLET. PO SCH (21:00)
== END 2019-07-29 18:00 | disposition short-term general hospital (02) | DRG 208 ==
LOC: ER 01:25 → ICU 09:19
PROVIDERS: ADMIT Internal Medicine; ATTEND Internal Medicine
PROC: 0BH17EZ Insertion of Endotracheal Airway into Trachea, Via Natural or Artificial Opening (ICD-10-PCS; principal; 2019-07-29)
PROC: 5A1935Z Respiratory Ventilation, Less than 24 Consecutive Hours (ICD-10-PCS; 2019-07-29)
PROC: 5A09357 Assistance with Respiratory Ventilation, Less than 24 Consecutive Hours, Continuous Positive Airway Pressure (ICD-10-PCS; 2019-07-29)
DX: J96.21 Acute and chronic respiratory failure with hypoxia (principal); J44.1 Chronic obstructive pulmonary disease with (acute) exacerbation; J44.0 Chronic obstructive pulmonary disease with (acute) lower respiratory infection; J20.9 Acute bronchitis, unspecified; M19.90 Unspecified osteoarthritis, unspecified site; F41.9 Anxiety disorder, unspecified; K59.09 Other constipation; E89.0 Postprocedural hypothyroidism; I73.9 Peripheral vascular disease, unspecified; F17.210 Nicotine dependence, cigarettes, uncomplicated; I12.9 Hypertensive chronic kidney disease with stage 1 through stage 4 chronic kidney disease, or unspecified chronic kidney disease; N18.3 Chronic kidney disease, stage 3 (moderate); I25.10 Atherosclerotic heart disease of native coronary artery without angina pectoris; G62.9 Polyneuropathy, unspecified; G47.33 Obstructive sleep apnea (adult) (pediatric); N40.0 Benign prostatic hyperplasia without lower urinary tract symptoms; G25.0 Essential tremor; Z85.850 Personal history of malignant neoplasm of thyroid; Z90.49 Acquired absence of other specified parts of digestive tract; Z99.81 Dependence on supplemental oxygen; Z90.5 Acquired absence of kidney; I25.2 Old myocardial infarction; Z85.528 Personal history of other malignant neoplasm of kidney
CPT/HCPCS: 36415; 36600; 71045; 80048; 80053; 82803; 83605; 83880; 84484; 85007; 85025; 87040; 87804; 93005; 94002; 94640; 94660; 96361; 96365; 96375; J0330; J0696; J2060; J2250; J2930; J3010; J3490; J7613; J7620; 99291-25; J7030

== ENCOUNTER 2019-08-15 01:44 | Emergency (ER) | payer OTHER, MEDICAID ==
[~2019-08-15] VITALS: Ht 182.9 cm; Wt 65.2 kg
--- NOTE | 2019-08-15 01:49 | PHYS DOC ---
Past History Past Medical History: Anxiety, Arthritis, Cancer, COPD, Diabetes, Renal Failure Additional Past Medical Histor: DDD, thyroid cancer and peripheral vascular disease Past Surgical History: Cholecystectomy, Other Additional Past Surgical Histo: L nephrectomy, thyroidectomy Smoking: Less than 1pk/day Alcohol Use: None Drug Use: None Adult General Chief Complaint Chief Complaint: ".. I was reaching over to read a book.. and I got up a little fast.. and lost my balance.. and fell on to my Lt. side.. I just got discharged from [place] for pneumonia... I was intubated 9 days... " HPI HPI Patient is a 69 year old male who presents with above hx and complaints of fall. Patient denies any dysrhythmia before the fall. Patient does state he does get lightheaded when he first stands up. Patient denies any recent change in medications. Recent admission at [facility] for respiratory failure and was intubated approximately 9 days on the ICU unit. Patient normally follows with med clinic. Patient has significant history of severe peripheral vascular disease, chronic constipation, hypothyroidism, syncopal episodes, anemia, macrocytic indices severe COPD, chronic kidney disease stage III, prostatic hypertrophy, renal cancer, periodic episodes of bradycardia, hypertension, coronary artery disease with history of [place], obstructive sleep apnea, peripheral neuropathy, tremor, and deconditioning., Patient does have a follow-up with his primary care on Friday. At . Review of Systems Review of Systems Constitutional: Denies fever or chills [] Eyes: Denies change in visual acuity, redness, or eye pain [] HENT: Denies nasal congestion or sore throat [] Respiratory: Complaints of left lower chest wall tenderness after a fall and chronic dyspnea/shortness of breath [] Cardiovascular: No additional information not addressed in HPI [] GI: Denies abdominal pain, nausea, vomiting, bloody stools or diarrhea [] : Denies dysuria or hematuria [] Musculoskeletal: Denies back pain or joint pain [] Integument: Denies rash or skin lesions [] Neurologic: Denies headache, focal weakness or sensory changes [] Endocrine: Denies polyuria or polydipsia [] All other systems were reviewed and found to be within normal limits, except as documented in this note. Family History Family History Noncontributory to presentation tonight Current Medications Current Medications See nursing for home medications Allergies Allergies Allergies Coded Allergies Type Severity Reaction Last Updated Verified No Known Drug Allergies 07/29/19 No Physical Exam Physical Exam Constitutional: Moderate acute distress, non-toxic appearance. [] HENT: Normocephalic, atraumatic, bilateral external ears normal, oropharynx moist, no oral exudates, nose normal. [place]. Eyes: PERRLA, EOMI, conjunctiva pale, no discharge. [] Neck: Normal range of motion, no tenderness, supple, no stridor. [] Old surgery scar Cardiovascular: Bradycardia Heart rate regular rhythm, no murmur , PMI to the left[] Lungs & Thorax: Bilateral breath sounds equal at apex with scattered wheezes throughout on auscultation []left lower anterior chest wall tenderness . The. Pain is worse on side to side and anterior to posterior compression of chest wall. Pain is exhibited on deep coughs. Abdomen: Bowel sounds normal, soft, left upper quadrant abdomen tenderness, no masses, no pulsatile masses. [] Old surgery scars Skin: Warm, dry, no erythema, no rash. Poor turgor Back: No tenderness, no CVA tenderness. [] Extremities: No tenderness, no cyanosis, no clubbing, ROM intact, no edema. Arthritic changes. Poor distal pulses and decreased sensation in feet. Venous stasis changes in legs. No cording appreciated. Neurologic: Alert and oriented X 3, moves extremities on request,, no new focal deficits noted. []Tremor Psychologic: Affect anxious, judgement normal, mood normal. [] EKG EKG My interpretation of EKG shows a sinus rhythm at 61 bpm. No findings acute STEMI of contralateral changes. Does have episodes of bradycardia into the 50s on monitor[] Radiology/Procedures Radiology/Procedures [address] [address] IMAGING REPORT Signed PATIENT: SUYAPA KENNEY ACCOUNT: [id number] : 1950 LOCATION: ER AGE: 69 SEX: M EXAM STATUS: REG ER ORD. PHYSICIAN: ALEXANDRO HERNANDES MD REASON: fall, RECENT PNEUMONIA PROCEDURE: CHEST PA & LATERAL ABDOMEN SUPINE UPRIGHT, CHEST PA LATERAL Technique: PA and lateral views of the chest were obtained. Clinical History: Fall, recent pneumonia Comparison: None. Findings: The heart and pulmonary vasculature appear within normal limits. There is linear reticular opacities throughout the lungs. The pleural margins are clear. The lungs are hyperinflated Impression: Chronic pulmonary fibrosis. 2 views abdomen pelvis Supine and upright AP abdomen pelvis 3:31 AM There is formed stool scattered throughout the colon. There is a paucity small bowel gas. There is no free air. There are surgical clips in the left upper quadrant. IMPRESSION: Constipation. Electronically signed by: Chandrika Flores III, MD (08/15/2019 4:27 AM) [id number] DICTATED AND SIGNED BY: CHANDRIKA FLORES III, MD DATE: 08/15/19426 CC: ALEXANDRO HERNANDES MD; PCP,UNKNOWN ~ [][place] [address] IMAGING REPORT Signed PATIENT: SUYAPA KENNEY ACCOUNT: [id number] : 1950 LOCATION: ER AGE: 69 SEX: M EXAM STATUS: REG ER ORD. PHYSICIAN: ALEXANDRO HERNANDES MD REASON: fall , Lt upper quadrant pain, OMNI 350, 90ml PROCEDURE: CT ANGIOGRAPHY CHEST ABDOMEN CTA chest and abdomen with contrast: History: Fall, left upper quadrant pain Axial helical images of the chest and abdomen were obtained after the administration of 90 cc of Omni 350 contrast. Timing is appropriate for arterial evaluation and multiplanar reconstruction performed on a separate imaging workstation including 3-D maximum intensity projected imaging. Comparison: none CTA OF THE CHEST WITH IV CONTRAST: There is significant intimal thickening and soft plaque within the thoracic aorta as well as calcification within the wall. There is no dissection stenosis or aneurysm. There is diffuse emphysematous changes in the lungs. There is no mediastinal lymphadenopathy or hematoma. Lymphadenopathy: no Impression: No acute findings. End Impression CTA of the abdomen WITH IV CONTRAST: This calcification the jay of the aorta and great vessels without dissection or aneurysm. There are stents in the common iliac arteries which appear patent. Liver: Pneumobilia. There has been prior cholecystectomy. Spleen: Unremarkable Pancreas: Unremarkable Adrenal Glands: Unremarkable Kidneys: Small cysts Evaluation of stomach and bowel is limited without oral contrast. Lymphadenopathy: no. Free fluid: no. Free air: no. Impression: No acute findings. End impression PQRS Compliance Statement: One or more of the following individualized dose reduction techniques were utilized for this examination: 1. Automated exposure control 2. Adjustment of the mA and/or kV according to patient size 3. Use of iterative reconstruction technique Electronically signed by: Chandrika Flores III, MD (08/15/2019 4:21 AM) [id number] DICTATED AND SIGNED BY: CHANDRIKA FLORES III, MD DATE: 08/15/19420 CC: ALEXANDRO HERNANDES MD; PCP,UNKNOWN ~ Course & Med Decision Making Course & Med Decision Making Pertinent Labs and Imaging studies reviewed. (See chart for details) Patient continue his meds as previously directed. Patient declined admission at this time. We'll give 1 dose of Lovenox. Discussions with patient reference anticoagulation more than his Plavix or aspirin. Patient defers at this time. Will keep follow up with [facility] as scheduled. Return if any concerns. Patient encouraged to continue nonsmoking efforts. Patient defers admission and further workup at this time. Patient exhibits UCAR capacity. Impression- 1. Fall 2. Chest wall contusion 3. Anemia hemoglobin 11.5 with macrocytic indices 102 4. Diabetes glucose 120 5. Mild elevation ALT 87 6. Elevated d-dimer 1.75 7. Severe peripheral vascular disease 8. Marked emphysema/ COPD [] Dragon Disclaimer Dragon Disclaimer This electronic medical record was generated, in whole or in part, using a voice recognition dictation system. Departure Departure: Disposition: HOME/RESIDENCE PRIOR TO ADM Condition: STABLE Referrals: PCP,UNKNOWN (PCP) Dragon Disclaimer This chart was dictated in whole or in part using Voice Recognition software in a busy, high-work load, and often noisy Emergency Department environment. It may contain unintended and wholly unrecognized errors or omissions. Dragon Disclaimer This chart was dictated in whole or in part using Voice Recognition software in a busy, high-work load, and often noisy Emergency Department environment. It may contain unintended and wholly unrecognized errors or omissions. Dragon Disclaimer This chart was dictated in whole or in part using Voice Recognition software in a busy, high-work load, and often noisy Emergency Department environment. It may contain unintended and wholly unrecognized errors or omissions. ALEXANDRO HERNANDES MD Aug 15, 2019 01:49
--- NOTE | 2019-08-15 02:25 | EKG ---
[address] [address] Test Date: 2019-08-15 Test Time: 02:19:01 Pat Name: SUYAPA KENNEY Department: Room: Gender: M Floor Manager: : 1950 Requested By: ALEXANDRO HERNANDES Order Number: [id number] Reading MD: Measurements Intervals [place] Rate: 61 P: 73 GA: 136 QRS: 3 QRSD: 84 T: 58 QT: 422 QTc: 426 Interpretive Statements SINUS RHYTHM NORMAL ECG RI6.01 No previous ECG available for comparison
[2019-08-15] MEDS ORDERED: IV RINGERS SOLUTION,LACTATED 1,000 ML IV SCH (02:30)
[2019-08-15] MEDS ORDERED: IOHEXOL 350 MG/ML 100 ML VIAL. IV ONE (02:30)
[2019-08-15] MEDS ORDERED: CONTRAST GIVEN MC PRN (02:30)
[2019-08-15 02:52] LABS: CALCIUM 8.5 mg/dL (8.5-10.1); CREATININE 1.2 mg/dL (0.7-1.3); GFR 59.9; POTASSIUM 4.3 mmol/L (3.5-5.1)
[2019-08-15 03:04] LABS: ALBUMIN 3.3 g/dL (3.4-5.0); BASO % 0 % (0-3); DIRECT BILIRUBIN 0.2 mg/dL (0.0-0.2); EOS # 0.1 x10^3/uL (0.0-0.7); EOS % 1 % (0-3); HEMATOCRIT 35.3 % (39.0-53.0); HEMOGLOBIN 11.5 g/dL (13.0-17.5); LYMPH # 2.7 x10^3/uL (1.0-4.8); LYMPH % 31 % (24-48); MAGNESIUM 1.9 mg/dL (1.8-2.4); MEAN CORPUSCULAR HEMOGLOBIN 33 pg (25-35); MEAN CORPUSCULAR HGB CONC 33 g/dL (31-37); MEAN CORPUSCULAR VOLUME 102 fL (79-100); MONO # 0.6 x10^3/uL (0.0-1.1); MONO % 7 % (0-9); NEUT # 5.4 x10^3uL (1.8-7.7); NEUT % 61 % (31-73); PLATELET COUNT 251 x10^3/uL (140-400); RED BLOOD COUNT 3.46 x10^6/uL (4.30-5.70); RED CELL DISTRIBUTION WIDTH 14.9 % (11.5-14.5); TOTAL BILIRUBIN 0.4 mg/dL (0.2-1.0); WHITE BLOOD COUNT 8.8 x10^3/uL (4.0-11.0)
--- NOTE | 2019-08-15 04:24 | RAD ---
CTA chest and abdomen with contrast: History: Fall, left upper quadrant pain Axial helical images of the chest and abdomen were obtained after the administration of 90 cc of Omni 350 contrast. Timing is appropriate for arterial evaluation and multiplanar reconstruction performed on a separate imaging workstation including 3-D maximum intensity projected imaging. Comparison: none CTA OF THE CHEST WITH IV CONTRAST: There is significant intimal thickening and soft plaque within the thoracic aorta as well as calcification within the wall. There is no dissection stenosis or aneurysm. There is diffuse emphysematous changes in the lungs. There is no mediastinal lymphadenopathy or hematoma. Lymphadenopathy: no Impression: No acute findings. End Impression CTA of the abdomen WITH IV CONTRAST: This calcification the jay of the aorta and great vessels without dissection or aneurysm. There are stents in the common iliac arteries which appear patent. Liver: Pneumobilia. There has been prior cholecystectomy. Spleen: Unremarkable Pancreas: Unremarkable Adrenal Glands: Unremarkable Kidneys: Small cysts Evaluation of stomach and bowel is limited without oral contrast. Lymphadenopathy: no. Free fluid: no. Free air: no. Impression: No acute findings. End impression PQRS Compliance Statement: One or more of the following individualized dose reduction techniques were utilized for this examination: 1. Automated exposure control 2. Adjustment of the mA and/or kV according to patient size 3. Use of iterative reconstruction technique Electronically signed by: Jurgen Jimenez III, MD (08/15/2019 4:21 AM) [id number]
[2019-08-15 04:30] LABS: BACTERIA,URINE 0 /HPF (0-FEW); BILIRUBIN,URINE NEG (NEG); CLARITY,URINE CLEAR; COLOR,URINE YELLOW; GLUCOSE,URINE NEG (NEG); NITRITE,URINE NEG (NEG); UROBILINOGEN,URINE 0.2 mg/dL (0.2 mg/dL); WBC,URINE OCC /HPF (0-4)
--- NOTE | 2019-08-15 04:30 | RAD ---
ABDOMEN SUPINE UPRIGHT, CHEST PA LATERAL Technique: PA and lateral views of the chest were obtained. Clinical History: Fall, recent pneumonia Comparison: None. Findings: The heart and pulmonary vasculature appear within normal limits. There is linear reticular opacities throughout the lungs. The pleural margins are clear. The lungs are hyperinflated Impression: Chronic pulmonary fibrosis. 2 views abdomen pelvis Supine and upright AP abdomen pelvis 3:31 AM There is formed stool scattered throughout the colon. There is a paucity small bowel gas. There is no free air. There are surgical clips in the left upper quadrant. IMPRESSION: Constipation. Electronically signed by: Jurgen Jimenez III, MD (08/15/2019 4:27 AM) [id number]
[2019-08-15 05:29] VITALS: BP 127/65
[2019-08-15] MEDS ORDERED: ENOXAPARIN ** NOTE DOSE ** SYRINGE SQ ONE (05:30)
== END 2019-08-15 05:36 | disposition home or self-care (01) ==
LOC: ER 01:44
DX: S20.212A Contusion of left front wall of thorax, initial encounter (principal); D53.9 Nutritional anemia, unspecified; E11.65 Type 2 diabetes mellitus with hyperglycemia; R79.1 Abnormal coagulation profile; I73.9 Peripheral vascular disease, unspecified; F41.9 Anxiety disorder, unspecified; M19.90 Unspecified osteoarthritis, unspecified site; J44.9 Chronic obstructive pulmonary disease, unspecified; N19 Unspecified kidney failure; M51.35 Other intervertebral disc degeneration, thoracolumbar region; Z85.850 Personal history of malignant neoplasm of thyroid; Z90.49 Acquired absence of other specified parts of digestive tract; Z90.89 Acquired absence of other organs; F17.200 Nicotine dependence, unspecified, uncomplicated; Z98.890 Other specified postprocedural states; W18.39XA Other fall on same level, initial encounter; Y93.89 Activity, other specified; Y92.89 Other specified places as the place of occurrence of the external cause; Y99.8 Other external cause status
CPT/HCPCS: 36415; 71046; 71275; 74019; 74175; 80048; 80076; 81001; 82550; 83690; 83735; 83880; 84443; 84484; 85025; 85379; 85610; 85730; 93005; 96360; 96372; 99285; J1650; J7120; Q9967

== ENCOUNTER 2019-08-24 19:58 | Emergency (ER) | payer OTHER, MEDICAID ==
[~2019-08-24] VITALS: Ht 182.9 cm; Wt 68.2 kg
[2019-08-24] MEDS ORDERED: CLINDAMYCIN 600MG PREMIX 50 ML IV ONE (20:30)
--- NOTE | 2019-08-24 20:32 | PHYS DOC ---
Past History Past Medical History: Anxiety, Arthritis, Cancer, COPD, Diabetes, Renal Failure Additional Past Medical Histor: DDD, thyroid cancer and peripheral vascular disease Past Surgical History: Cholecystectomy, Other Additional Past Surgical Histo: L nephrectomy, thyroidectomy Smoking: Less than 1pk/day Alcohol Use: None Drug Use: None Adult General Chief Complaint Chief Complaint: LOWER EXTREMITY EDEMA [facility] Patient is a 69-year-old male with multiple medical comorbidities and receives most of his medical care at the [facility]. He presents today secondary to bilateral lower leg swelling 2 days duration and increasing redness and warmth in the left lower extremity for the past 4 hours. He called the nursing hotline and was instructed to come to the ER for further evaluation. He denies fever or chills and no medications have been given prior to arrival. Patient states that his legs normally swell and he does not take a diuretic. He denies chest pain or shortness of breath. Review of Systems Review of Systems All other ROS is negative unless otherwise stated in [facility] Allergies Allergies Allergies Coded Allergies Type Severity Reaction Last Updated Verified No Known Drug Allergies 07/29/19 No Physical Exam Physical Exam See above Constitutional: Well developed, well nourished, no acute distress, non-toxic appearance. [] HENT: Normocephalic, atraumatic, bilateral external ears normal, oropharynx moist, no oral exudates, nose normal. [] Eyes: PERRLA, EOMI, conjunctiva normal, no discharge. [] Neck: Normal range of motion, no tenderness, supple, no stridor. [] Cardiovascular:Heart rate regular rhythm, no murmur [] Lungs & Thorax: Bilateral breath sounds clear to auscultation [] Skin: There is some chronic venous stasis changes to the lower 70s bilaterally more so on the left than the right that I do appreciate what appears to be new erythema that seems to be extending up the patient's left lower leg that is slightly warm to touch and tender. Back: No tenderness, no CVA tenderness. [] Extremities: No tenderness, no cyanosis, no clubbing, ROM intact, 1-2+ bilateral lower extremity edema Neurologic: Alert and oriented X 3, normal motor function, normal sensory fun ction, no focal deficits noted. [] Psychologic: Affect normal, judgement normal, mood normal. [] Current Patient Data Vital Signs Vital Signs Date Time Temp Pulse Resp B/P (MAP) Pulse Ox O2 Delivery O2 Flow Rate FiO2 08/24/19 20:10 98.9 83 20 129/86 (100) 96 Room Air EKG EKG [] Radiology/Procedures Radiology/Procedures [] Course & Med Decision Making Course & Med Decision Making Pertinent Labs and Imaging studies reviewed. (See chart for details) This patient was seen for bilateral lower extremity edema and increasing redness and warmth in the left lower extremity. We'll check labs and go ahead and obtain blood cultures and lactic acid and start clindamycin empirically for what is presumably cellulitis. Given the patient's medical history he may require transfer to [facility] for further care and evaluation. 2200: This patient's workup was complete and is rather unremarkable. His creatinine is 1.5 which is baseline for him and his BNP is slightly elevated which is consistent with previous labs. He is afebrile and his white blood cell count is normal. We'll discharge him home on clindamycin and he is instructed to follow-up with his doctor in 2-3 days for reevaluation of lower extremity redness and swelling. Dragon Disclaimer Dragon Disclaimer This electronic medical record was generated, in whole or in part, using a voice recognition dictation system. Departure Departure: Impression: Primary Impression: Bilateral lower extremity edema Additional Impression: Cellulitis of left lower extremity Disposition: 01 HOME, SELF-CARE Condition: STABLE Referrals: PCP,UNKNOWN (PCP) Follow up in 2-3 days for reevaluation Patient Instructions: Cellulitis, Edema Additional Instructions: Please see your doctor in 2-3 days. Scripts Clindamycin Hcl (CLINDAMYCIN HCL) 150 Mg Capsule 1 CAP PO QID for Cellulitis, #40 CAP Prov: JCARLOS FELIZ DO 08/24/19 Problem Qualifiers JCARLOS FELIZ DO Aug 24, 2019 20:32
[2019-08-24 21:08] LABS: BASO # 0.1 x10^3/uL (0.0-0.2); BASO % 1 % (0-3); EOS # 0.1 x10^3/uL (0.0-0.7); EOS % 2 % (0-3); HEMATOCRIT 32.5 % (39.0-53.0); HEMOGLOBIN 10.8 g/dL (13.0-17.5); LYMPH # 2.6 x10^3/uL (1.0-4.8); LYMPH % 45 % (24-48); MEAN CORPUSCULAR HEMOGLOBIN 34 pg (25-35); MEAN CORPUSCULAR HGB CONC 33 g/dL (31-37); MEAN CORPUSCULAR VOLUME 103 fL (79-100); MONO # 0.5 x10^3/uL (0.0-1.1); MONO % 10 % (0-9); NEUT # 2.4 x10^3uL (1.8-7.7); NEUT % 42 % (31-73); PLATELET COUNT 202 x10^3/uL (140-400); RED BLOOD COUNT 3.17 x10^6/uL (4.30-5.70); RED CELL DISTRIBUTION WIDTH 15.8 % (11.5-14.5); WHITE BLOOD COUNT 5.6 x10^3/uL (4.0-11.0)
[2019-08-24 21:20] LABS: CALCIUM 8.1 mg/dL (8.5-10.1); CREATININE 1.5 mg/dL (0.7-1.3); GFR 46.3; POTASSIUM 4.6 mmol/L (3.5-5.1)
[2019-08-24 21:22] LABS: C REACTIVE PROTEIN 2.1 mg/L (0-3.3)
[2019-08-24 21:49] VITALS: BP 129/56
[2019-08-24] MEDS ORDERED: CLIN150C14 PO (22:05)
[2019-08-24 22:10] LABS: SEDIMENTATION RATE 60 (0-15)
== END 2019-08-24 22:20 | disposition home or self-care (01) ==
LOC: ER 19:58
DX: R60.9 Edema, unspecified (principal); L03.116 Cellulitis of left lower limb; J44.9 Chronic obstructive pulmonary disease, unspecified; E11.9 Type 2 diabetes mellitus without complications; N18.9 Chronic kidney disease, unspecified; F17.210 Nicotine dependence, cigarettes, uncomplicated; Z90.49 Acquired absence of other specified parts of digestive tract
CPT/HCPCS: 36415; 80048; 83605; 83880; 84145; 85025; 85651; 86140; 87040; 96365; 99284; J3490

== ENCOUNTER 2020-01-19 13:39 | Emergency (ER) | payer OTHER, MEDICAID ==
[~2020-01-19] VITALS: Ht 182.9 cm; Wt 68.2 kg
[~2020-01-19 13:39] MED LIST changes: +CLIN150C14 PO
[2020-01-19 13:49] VITALS: BP 114/56
[2020-01-19] MEDS ORDERED: CIPR5DRO OS (13:58)
[2020-01-19] MEDS ORDERED: Cortisporin Otic LEFT EAR (13:58)
--- NOTE | 2020-01-19 13:58 | PHYS DOC ---
Past History Past Medical History: Anxiety, Arthritis, Cancer, COPD, Diabetes, Renal Failure Additional Past Medical Histor: DDD, thyroid cancer and peripheral vascular disease Past Surgical History: Cholecystectomy, Other Additional Past Surgical Histo: L nephrectomy, thyroidectomy Smoking: Less than 1pk/day Alcohol Use: None Drug Use: None General Adult EDM: Chief Complaint: EARACHE/EAR PAIN HPI: HPI: Patient is a 6-year-old male who presents to the emergency department for evaluation. He states that he gets ear infections frequently, and has been having increasing ear pain over the past week on his left. He states he has had some green mucoid discharge from his ear. He also reports that he has having some left eye irritation, and this morning he had some purulent discharge when he awakened. He denies any vision changes or eye pain at this time, other than the irritation. He denies any headache, fever, nasal congestion, or shortness of breath. He is not having any other symptoms at this time. Review of Systems: Review of Systems: Constitutional: Denies fever or chills Eyes: Denies change in visual acuity HENT: Denies nasal congestion or sore throat. Reports left-sided otalgia. Respiratory: Denies cough or shortness of breath Cardiovascular: Denies chest pain or edema GI: Denies abdominal pain, nausea, vomiting, bloody stools or diarrhea : Denies dysuria Musculoskeletal: Denies back pain or joint pain Integument: Denies rash Neurologic: Denies headache, focal weakness or sensory changes Psychiatric: Reports chronic anxiety Heart Score: Risk Factors: Risk Factors: DM, Current or recent (<one month) smoker, HTN, HLP, family history of CAD, obesity. Risk Scores: Score 0 - 3: 2.5% MACE over next 6 weeks - Discharge Home Score 4 - 6: 20.3% MACE over next 6 weeks - Admit for Clinical Observation Score 7 - 10: 72.7% MACE over next 6 weeks - Early Invasive Strategies Allergies: Allergies: Allergies Coded Allergies Type Severity Reaction Last Updated Verified No Known Drug Allergies 07/29/19 No Physical Exam: PE: PHYSICAL EXAM: CONSTITUTIONAL: Well developed, well nourished HEAD: normocephalic, atraumatic EENT: PERRL, EOMI. there is no photophobia. The left conjunctiva is mildly injected, the right conjunctiva is normal in color, sclerae non-icteric; moist mucous membranes. The right tympanic membrane and external auditory canal are normal. There is mild left tragal tenderness to palpation. There is no mastoid tenderness to palpation. The tympanic membrane appears normal. On the inner half of the external auditory canal, there is thickening, with a small amount of purulence present. NECK: Supple, non-tender; no meningismus. LUNGS: Lungs CTA, breathing even and unlabored. Diffusely diminished breath sounds HEART: Regular rate and rhythm, no murmur CHEST: No deformity; non-tender ABDOMEN: The abdomen is soft, and non-tender, no masses or bruits. EXTREM: Normal ROM; no deformity, no calf tenderness. Normal pulses palpable in all extremities. There is no pedal edema. SKIN: No rash; no diaphoresis NEURO: Alert; normal speech and cognition; CN's grossly intact; strength grossly intact without focal deficit. BACK: No CVA TTP. EKG: EKG: [] Radiology/Procedures: Radiology/Procedures: [] Course & Med Decision Making: Course & Med Decision Making Patient remains stable. I discussed diagnosis, home care plan, the need for close follow-up, and return precautions. Dragon Disclaimer: Surface [employer] Disclaimer: This electronic medical record was generated, in whole or in part, using a voice recognition dictation system. Departure Departure: Impression: Primary Impression: Otitis externa Additional Impression: Conjunctivitis Disposition: 01 HOME/RESIDENCE PRIOR TO ADM Condition: STABLE Referrals: PCP,UNKNOWN (PCP) Patient Instructions: Bacterial Conjunctivitis, Conjunctivitis (Viral and Bacte rial), Otitis Externa Scripts Ciprofloxacin Hcl (CILOXAN) 5 Ml Drops 1 DROP OS QID for - for 7 Days, #5 ML Prov: MERLENE LANTIGUA MD 01/19/20 [Cortisporin Otic] No Conflict Check 4 DROP LEFT EAR Q6H for 7 Days Prov: MERLENE LANTIGUA MD 01/19/20 Justification of Admission: Justification of Admission: Justification of Admission Dx: N/A MERLENE LANTIGUA MD Jan 19, 2020 13:58
== END 2020-01-19 14:02 | disposition home or self-care (01) ==
LOC: ER 13:39
DX: H60.92 Unspecified otitis externa, left ear (principal); H10.9 Unspecified conjunctivitis; M19.90 Unspecified osteoarthritis, unspecified site; J44.9 Chronic obstructive pulmonary disease, unspecified; E11.22 Type 2 diabetes mellitus with diabetic chronic kidney disease; N18.9 Chronic kidney disease, unspecified; F41.9 Anxiety disorder, unspecified; I73.9 Peripheral vascular disease, unspecified; F17.200 Nicotine dependence, unspecified, uncomplicated
CPT/HCPCS: 99283

== ENCOUNTER 2020-01-19 22:55 | Emergency (ER) | payer OTHER, MEDICAID ==
[~2020-01-19] VITALS: Ht 182.9 cm; Wt 68.2 kg
[2020-01-19 22:55] VITALS: BP 117/64
[~2020-01-19 22:55] MED LIST changes: +CIPR5DRO OS; +Cortisporin Otic LEFT EAR
[2020-01-19] MEDS ORDERED: IV NORMAL SALINE 1,000ML 1,000 ML IV ONE (23:30)
--- NOTE | 2020-01-19 23:32 | PHYS DOC ---
Past History Past Medical History: Anxiety, Arthritis, Cancer, COPD, Diabetes, Renal Failure Additional Past Medical Histor: DDD, thyroid cancer and peripheral vascular disease Past Surgical History: Cholecystectomy, Other Additional Past Surgical Histo: L nephrectomy, thyroidectomy Smoking: Less than 1pk/day Alcohol Use: None Drug Use: None General Adult EDM: Chief Complaint: EARACHE/EAR PAIN HPI: HPI: 69-year-old male returns to the emergency room via EMS. He was just seen by my colleague several hours ago and diagnosed with otitis externa and bacterial conjunctivitis. He has been taking his drops. He comes back tonight because he is concerned that the infection may have sunk into his belly. He is feeling nauseated and generally fatigued. Patient tells me he sleeps very little each day. He also has not eaten very much in a couple of days. He just feels generally rundown. He was helping a friend do laundry earlier and he had stop and rest walking back to his apartment. He denies fever chills. No other significant events in the last several hours. Review of Systems: Review of Systems: Constitutional: Denies fever or chills Eyes: Denies change in visual acuity HENT: Denies nasal congestion or sore throat Respiratory: Denies cough or shortness of breath Cardiovascular: Denies chest pain or edema GI: Denies abdominal pain, nausea, vomiting, bloody stools or diarrhea : Denies dysuria Musculoskeletal: Denies back pain or joint pain Integument: Denies rash Neurologic: Denies headache, focal weakness or sensory changes Endocrine: Denies polyuria or polydipsia Lymphatic: Denies swollen glands Psychiatric: Denies depression or anxiety Heart Score: Risk Factors: Risk Factors: DM, Current or recent (<one month) smoker, HTN, HLP, family history of CAD, obesity. Risk Scores: Score 0 - 3: 2.5% MACE over next 6 weeks - Discharge Home Score 4 - 6: 20.3% MACE over next 6 weeks - Admit for Clinical Observation Score 7 - 10: 72.7% MACE over next 6 weeks - Early Invasive Strategies Current Medications: Current Meds: Current Medications Medications (Trade) Dose Ordered Sig/Fritz Start Time Stop Time Status Last Admin Dose Admin Ondansetron HCl (Zofran) 4 mg 1X ONCE 01/19/20 23:30 01/19/20 23:31 UNV Sodium Chloride 1,000 ml @ 1,000 mls/hr 1X ONCE 01/19/20 23:30 01/20/20 00:29 UNV Allergies: Allergies: Allergies Coded Allergies Type Severity Reaction Last Updated Verified No Known Drug Allergies 07/29/19 No Physical Exam: PE: Constitutional: Well developed, well nourished, no acute distress, non-toxic appearance. [] HENT: Normocephalic, atraumatic, bilateral external ears normal, oropharynx moist, no oral exudates, nose normal. [] Eyes: PERRLA, EOMI, conjunctiva normal, no discharge. [] Neck: Normal range of motion, no tenderness, supple, no stridor. [] Cardiovascular:Heart rate regular rhythm, no murmur [] Lungs & Thorax: Bilateral breath sounds clear to auscultation [] Abdomen: Bowel sounds normal, soft, no tenderness, no masses, no pulsatile masses. [] Skin: Warm, dry, no erythema, no rash. [] Back: No tenderness, no CVA tenderness. [] Extremities: No tenderness, no cyanosis, no clubbing, ROM intact, no edema. [] Neurologic: Alert and oriented X 3, normal motor function, normal sensory function, no focal deficits noted. [] Psychologic: Affect normal, judgement normal, mood normal. [] Current Patient Data: Vital Signs: Vital Signs Date Time Temp Pulse Resp B/P (MAP) Pulse Ox O2 Delivery O2 Flow Rate FiO2 01/19/20 22:55 98.4 83 18 117/64 (81) 99 Room Air EKG: EKG: Sinus rhythm, rate 79, leftward axis, no ST elevations or depressions. [] Radiology/Procedures: Radiology/Procedures: [] Course & Med Decision Making: Course & Med Decision Making Pertinent Labs and Imaging studies reviewed. (See chart for details) The patient's labs are unremarkable. He has a creatinine 1.6, but this is similar to previous. I have given 1 L normal saline and 4 mg of Zofran IV for his nausea. I do not believe any further treatment for his infection is necessary at this time. He is stable for discharge. [] Dragon Disclaimer: Dragon Disclaimer: This electronic medical record was generated, in whole or in part, using a voice recognition dictation system. Departure Departure: Impression: Primary Impression: Otitis externa Qualified Codes: H60.392 - Other infective otitis externa, left ear Additional Impression: Bacterial conjunctivitis of right eye Disposition: HOME/RESIDENCE PRIOR TO ADM Condition: STABLE Referrals: PCP,UNKNOWN (PCP) Patient Instructions: Otitis Externa, [id number] Justification of Admission: Justification of Admission: Justification of Admission Dx: N/A HUMZA SEAMAN DO Jan 19, 2020 23:32
[2020-01-19] MEDS ORDERED: ONDANSETRON PF 4 MG/2 ML VIAL. IVP ONE (23:45)
[2020-01-20 00:04] LABS: BASO % 0 % (0-3); EOS % 0 % (0-3); HEMATOCRIT 41.4 % (39.0-53.0); LYMPH % 16 % (24-48); MEAN CORPUSCULAR HEMOGLOBIN 32 pg (25-35); MEAN CORPUSCULAR HGB CONC 34 g/dL (31-37); MEAN CORPUSCULAR VOLUME 94 fL (79-100); MONO # 0.5 x10^3/uL (0.0-1.1); MONO % 8 % (0-9); NEUT % 76 % (31-73); PLATELET COUNT 168 x10^3/uL (140-400); RED BLOOD COUNT 4.39 x10^6/uL (4.30-5.70); RED CELL DISTRIBUTION WIDTH 16.4 % (11.5-14.5); WHITE BLOOD COUNT 6.6 x10^3/uL (4.0-11.0)
[2020-01-20 00:13] LABS: CALCIUM 7.9 mg/dL (8.5-10.1); CREATININE 1.6 mg/dL (0.7-1.3); GFR 42.9; POTASSIUM 4.1 mmol/L (3.5-5.1)
[2020-01-20 00:19] LABS: ALBUMIN 3.6 g/dL (3.4-5.0); ALBUMIN/GLOBULIN RATIO 1.1 (1.0-1.7); TOTAL BILIRUBIN 0.7 mg/dL (0.2-1.0); TOTAL PROTEIN 6.9 g/dL (6.4-8.2)
--- NOTE | 2020-01-20 06:20 | EKG ---
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
== END 2020-01-20 01:00 | disposition home or self-care (01) ==
LOC: ER 22:55
DX: H60.392 Other infective otitis externa, left ear (principal); H10.89 Other conjunctivitis; J44.9 Chronic obstructive pulmonary disease, unspecified; M19.90 Unspecified osteoarthritis, unspecified site; E11.22 Type 2 diabetes mellitus with diabetic chronic kidney disease; N18.9 Chronic kidney disease, unspecified; F17.200 Nicotine dependence, unspecified, uncomplicated; Z90.49 Acquired absence of other specified parts of digestive tract
CPT/HCPCS: 36415; 80053; 84484; 85025; 93005; 96374; 99284; J2405; J7030

== ENCOUNTER 2020-02-20 01:48 | Emergency (ER) | payer OTHER, MEDICAID ==
[~2020-02-20] VITALS: Ht 182.9 cm; Wt 72.8 kg
--- NOTE | 2020-02-20 02:04 | PHYS DOC ---
Past History Past Medical History: Anxiety, Arthritis, Cancer, COPD, Diabetes, Renal Failure Additional Past Medical Histor: DDD, thyroid cancer and peripheral vascular disease Past Surgical History: Cholecystectomy, Other Additional Past Surgical Histo: L nephrectomy, thyroidectomy Smoking: Less than 1pk/day Alcohol Use: None Drug Use: None General Adult EDM: Chief Complaint: SHORTNESS OF BREATH HPI: HPI: 69-year-old male past medical history of COPD on 2 L NC (qhs/sleeping), CKDIII, GERD, CAD and PVD on Plavix, hypothyroidism, tremors and GERD, presents to the ED with complaints of exertional shortness of breath, no relief with nebulized albuterol and Combivent at home. Patient realized he was out of his stiolto. States he felt as if he could not take a deep breath and reports increased phlegm over the past 2 weeks that has turned from clear to white. States symptoms have almost fully resolved and he is feeling much better. States he was admitted July 2018 and intubated for 9 days secondary to pneumonia. Still smokes tobacco. No history of DVT or PE. Review of systems: No associated syncope, hemoptysis, unilateral leg swelling, chest pressure heaviness or tightness, nausea, vomiting, diarrhea, diaphoresis, neck stiffness, headache, neurologic deficits, back pain, orthopnea, leg swelling, rash, sore throat, ageusia, anxiety or depression. Allergies: Allergies: Allergies Coded Allergies Type Severity Reaction Last Updated Verified No Known Drug Allergies 07/29/19 No Physical Exam: PE: Constitutional: Well developed, well nourished, no acute distress, non-toxic appearance. [] HENT: Normocephalic, atraumatic, bilateral external ears normal, oropharynx moist, no oral exudates, nose normal. [] Eyes: EOMI, conjunctiva normal, no discharge. [] Neck: Normal range of motion, no tenderness, supple, no stridor. [] Cardiovascular:Heart rate regular rhythm, no murmur [] Lungs & Thorax: Scant expiratory wheezing, no crackles or rales, speaking in full sentences/no respiratory distress, 97% on 2 L nasal cannula Abdomen: Bowel sounds normal, soft, no tenderness, no masses, no pulsatile masses. [] Skin: Warm, dry, no erythema, no rash. [] Back: No tenderness, no CVA tenderness. [] Extremities: No tenderness, no cyanosis, no clubbing, ROM intact, no edema. [] Bilateral hemosiderin deposition (PVD) Neurologic: Alert and oriented X 3, normal motor function, normal sensory function, no focal deficits noted. [] Psychologic: Affect normal, judgement normal, mood normal. [] EKG: EKG: Normal sinus rhythm at 73 bpm, left axis deviation, normal intervals, no T wave inversions, no ST elevations or ST depressions Radiology/Procedures: Radiology/Procedures: IMAGING REPORT Signed PATIENT: SUYAPA KENNEY ACCOUNT: [id number] : 1950 LOCATION: ER AGE: 69 SEX: M EXAM STATUS: REG ER ORD. PHYSICIAN: MIRANDA JACOB DO REASON: soa PROCEDURE: PORTABLE CHEST 1V AP chest x-ray HISTORY: Shortness of breath. FINDINGS: Heart size normal. Mediastinal silhouette is normal. Hyperinflation likely related to COPD. There is mild indistinct asymmetric opacity at the right lung base with reticulonodular densities present. Left lung is clear. No pleural effusions. Bones are unremarkable. IMPRESSION: 1. Indistinct right lower lobe infiltrate. This could represent early pneumonia. 2. Hyperinflation of the lungs due to COPD, stable. Electronically signed by: Dian Calle MD (02/20/2020 3:45 AM) [facility] [place] AND SIGNED BY: DIAN CALLE MD DATE: 02/20/20 0345 CC: PCP,UNKNOWN; MIRANDA JACOB DO ~ Course & Med Decision Making: Course & Med Decision Making Pertinent Labs and Imaging studies reviewed. (See chart for details) Concern for RLL PNA, does not meet sepsis criteria in a copd pt with mild exacerbation. Is not requiring further oxygen. Patient is afebrile with no leukocytosis. Patient does walk steadily with no increased respiratory distress. Patient reports his symptoms significantly improved after breathing treatment. Patient was treated for COPD and given antibiotics in the ED. It was my recommendation that patient be admitted to the hospital, due to his multiple comorbidities and h/o sepsis from pneumonia. Patient refused, states he feels well and his sxs are not similar to his past experience, that he will return if his breathing should worsen. Will DC home with steroids and antibiotics, and inhaler refill. Urgent PMD follow-up instructions were given. Strict ED return precautions. Life-threatening processes were considered, low suspicion given hx/pe. I spoken with the patient and her caregivers. I explained the patient's condition, diagnoses and treatment plan based on the information available to me at this time. I have answered the patient and her caregiver's questions and addressed any concerns. The patient and her caregivers have a good understanding of patient's diagnosis, condition and treatment plan as can be expected at this point. Vital signs have been stable. Patient's condition is stable and appropriate for discharge from the emergency department. Patient will pursue further outpatient evaluation with primary care physician or other designated or consulting physician as outlined in the discharge instruc tions. The patient and/or caregivers are agreeable to this plan of care and follow-up instructions have been explained in detail. The patient and/or caregivers have received these instructions in written form and have expressed an understanding of the discharge instructions. The patient and/or caregivers are aware that any significant change of condition or worsening of symptoms should prompt immediate return to this or the closest emergency department or call to 911. Open[employer] Disclaimer: [employer] Disclaimer: This electronic medical record was generated, in whole or in part, using a voice recognition dictation system. Departure Departure: Impression: Primary Impression: COPD exacerbation Additional Impressions: Pneumonia Renal insufficiency Disposition: ADMITTED INPATIENT Condition: STABLE Referrals: PCP,UNKNOWN (PCP) Patient Instructions: Chronic Obstructive Pulmonary Disease Exacerbation, Pneumonia, Adult Scripts Doxycycline Hyclate (DOXYCYCLINE HYCLATE) 50 Mg Capsule 1 CAP PO BID for cough for 10 Days, #20 CAP Prov: MIRANDA JACOB DO 02/20/20 Amoxicillin/Potassium Clav (AUGMENTIN 875-125 TABLET) 1 Each Tablet 1 TAB PO BID for cough for 10 Days, #20 TAB 0 Refills Prov: MIRANDA JACOB DO 02/20/20 Tiotropium Br/Olodaterol HCl (Stiolto Respimat Inhal [place]) 4 Gm Mist.inhal 4 GM IH DAILY for copd for 30 Days, #1 SPRAY Prov: MIRANDA JACOB DO 02/20/20 Prednisone (PREDNISONE) 50 Mg Tablet 40 MG PO DAILY for daily for 4 Days, #4 TAB Prov: MIRANDA JACOB DO 02/20/20 Justification of Admission: Justification of Admission: Justification of Admission Dx: N/A Comminuty Aquired Pneumonia: Med-High Risk Pt (copd exacerbation) MIRANDA JACOB DO Feb 20, 2020 02:04
[2020-02-20 02:09] VITALS: BP 142/63
[2020-02-20] MEDS ORDERED: methylPREDNISolone SOD SUCC PF 125 MG/2 ML VIAL. IV ONE (02:15)
[2020-02-20] MEDS ORDERED: IPRATRPIUM/ALBUTEROL 0.5/2.5MG 3 ML NEBU. NEB ONE (02:15)
[2020-02-20 02:33] LABS: BASO % 1 % (0-3); EOS # 0.1 x10^3/uL (0.0-0.7); EOS % 1 % (0-3); HEMATOCRIT 40.2 % (39.0-53.0); HEMOGLOBIN 13.4 g/dL (13.0-17.5); LYMPH # 3.3 x10^3/uL (1.0-4.8); LYMPH % 38 % (24-48); MEAN CORPUSCULAR HEMOGLOBIN 32 pg (25-35); MEAN CORPUSCULAR HGB CONC 33 g/dL (31-37); MEAN CORPUSCULAR VOLUME 97 fL (79-100); MONO # 0.7 x10^3/uL (0.0-1.1); MONO % 9 % (0-9); NEUT # 4.4 x10^3uL (1.8-7.7); NEUT % 52 % (31-73); PLATELET COUNT 178 x10^3/uL (140-400); RED BLOOD COUNT 4.16 x10^6/uL (4.30-5.70); RED CELL DISTRIBUTION WIDTH 17.4 % (11.5-14.5); WHITE BLOOD COUNT 8.6 x10^3/uL (4.0-11.0)
[2020-02-20 02:34] LABS: CALCIUM 9.1 mg/dL (8.5-10.1); CREATININE 1.6 mg/dL (0.7-1.3); GFR 42.9; POTASSIUM 3.9 mmol/L (3.5-5.1)
[2020-02-20 02:47] LABS: ALBUMIN 3.9 g/dL (3.4-5.0); ALBUMIN/GLOBULIN RATIO 1.1 (1.0-1.7); TOTAL BILIRUBIN 0.3 mg/dL (0.2-1.0); TOTAL PROTEIN 7.6 g/dL (6.4-8.2)
--- NOTE | 2020-02-20 03:48 | RAD ---
AP chest x-ray HISTORY: Shortness of breath. FINDINGS: Heart size normal. Mediastinal silhouette is normal. Hyperinflation likely related to COPD. There is mild indistinct asymmetric opacity at the right lung base with reticulonodular densities present. Left lung is clear. No pleural effusions. Bones are unremarkable. IMPRESSION: 1. Indistinct right lower lobe infiltrate. This could represent early pneumonia. 2. Hyperinflation of the lungs due to COPD, stable. Electronically signed by: Jared Plascencia MD (02/20/2020 3:45 AM) [facility]
[2020-02-20] MEDS ORDERED: cefTRIAXone SODIUM 1 GM VIAL ONE (04:46)
[2020-02-20] MEDS ORDERED: IV NORMAL SALINE 50ML 50 ML ONE (04:47)
[2020-02-20] MEDS ORDERED: AZITHROMYCIN 250 MG TABLET. PO ONE (05:00)
[2020-02-20] MEDS ORDERED: PRED50TA PO (05:22)
[2020-02-20] MEDS ORDERED: DOXY50CA PO (05:22)
[2020-02-20] MEDS ORDERED: TIOT4MIS3 IH (05:22)
[2020-02-20] MEDS ORDERED: AMOX1TAB61 PO (05:22)
--- NOTE | 2020-02-21 05:19 | EKG ---
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
== END 2020-02-20 05:34 | disposition home or self-care (01) ==
LOC: ER 01:48
DX: J44.1 Chronic obstructive pulmonary disease with (acute) exacerbation (principal); J18.9 Pneumonia, unspecified organism; N28.9 Disorder of kidney and ureter, unspecified; F41.9 Anxiety disorder, unspecified; M19.90 Unspecified osteoarthritis, unspecified site; J44.9 Chronic obstructive pulmonary disease, unspecified; E11.9 Type 2 diabetes mellitus without complications; F17.200 Nicotine dependence, unspecified, uncomplicated; I73.9 Peripheral vascular disease, unspecified
CPT/HCPCS: 36415; 71045; 80053; 83880; 84484; 85025; 93005; 94640; 96374; 99285; J2930

== ENCOUNTER 2020-02-24 23:35 | Emergency (ER) | payer OTHER, MEDICAID ==
[~2020-02-24] VITALS: Ht 182.9 cm; Wt 72.8 kg
[~2020-02-24 23:35] MED LIST changes: +ALPR0.5T6 PO; +AMOX1TAB61 PO; +DOXY50CA PO; +DULO30CA2 PO; +HYDR-3165 PO; +LEVO175T5 PO; +MULT-735 PO; +NAPR-682 PO; +PRED50TA PO; +TIOT4MIS3 IH
--- NOTE | 2020-02-24 23:56 | PHYS DOC ---
Past History Past Medical History: Anxiety, Arthritis, Cancer, COPD, Diabetes, Renal Failure Additional Past Medical Histor: DDD, thyroid cancer and peripheral vascular disease Past Surgical History: Cholecystectomy, Other Additional Past Surgical Histo: L nephrectomy, thyroidectomy Smoking: Less than 1pk/day Alcohol Use: None Drug Use: None The HEART Score for CP Pts HEART Score for Chest Pain: HEART Score for Chest Pain Response (Comments) Value History Slighlty/Non-Suspicious 0 ECG Normal 0 Age > 65 2 Risk Factors >3 Risk Factors or Hx CAD 2 Troponin < Normal Limit 0 Total 4 Risk Factors: Risk Factors: DM, Current or recent (<one month) smoker, HTN, HLP, family history of CAD, obesity. Risk Scores: Score 0 - 3: 2.5% MACE over next 6 weeks - Discharge Home Score 4 - 6: 20.3% MACE over next 6 weeks - Admit for Clinical Observation Score 7 - 10: 72.7% MACE over next 6 weeks - Early Invasive Strategies Adult General Chief Complaint Chief Complaint: FLANK PAIN HPI HPI Patient is a 69-year-old male who presents with rib pain. Patiently recently seen and evaluated at our facility 4 days ago and diagnosed with pneumonia. Patient reports being sent home with antibiotics for which she has been compliant with daily. Patient reports continued coughing with expulsion of yellow/green sputum that has been worsening his right-sided rib pain. He reports pain is to lateral right rib cage, worse with coughing, twisting motions and direct palpation. He denies any fever, headaches, chest pain, shortness of breath past baseline, abdominal pain, urinary symptoms, or recent COVID-19 exposure. Review of Systems Review of Systems Fourteen body systems of review of systems have been reviewed. See HPI for pertinent positives and negative responses, other [place] all other systems are negative, non-pertinent or non-contributory Current Medications Current Medications Current Medications Medications (Trade) Dose Ordered Sig/Fritz Start Time Stop Time Status Last Admin Dose Admin Aspirin (Aspirin Chewable) 162 mg 1X ONCE 02/25/20 00:15 02/25/20 00:16 Sodium Chloride 1,000 ml @ 1,000 mls/hr 1X ONCE 02/25/20 00:15 02/25/20 01:14 Allergies Allergies Allergies Coded Allergies Type Severity Reaction Last Updated Verified No Known Drug Allergies 07/29/19 No Physical Exam Physical Exam Constitutional: Well developed, thin appearing and appears malnourished, no acute distress, non-toxic appearance. HENT: Normocephalic, atraumatic, bilateral external ears normal, oropharynx moist, no oral exudates, nose normal. Eyes: PERRLA, EOMI, conjunctiva normal, no discharge. Neck: Normal range of motion, no tenderness, supple, no stridor. Cardiovascular: Heart rate regular, sinus rhythm, no murmurs rubs or gallops Lungs & Thorax: Coarse breath sounds bilaterally, no obvious consolidations or abnormalities appreciated on auscultation. Tenderness to right lateral chest wall along right midaxillary line, no concerning skin findings suggestive of shingles or other rash, no bruising, step-off or other palpable abnormalities Abdomen: Bowel sounds normal, soft, no tenderness, no masses, no pulsatile masses. Nonsurgical abdomen, no peritoneal signs Skin: Warm, dry, no erythema, no rash. Back: No tenderness, no CVA tenderness. Extremities: No tenderness, no cyanosis, no clubbing, ROM intact, no edema. Neurologic: Alert and oriented X 3, grossly normal motor & sensory function, no focal deficits noted. Psychologic: Affect normal, judgement normal, mood normal. Current Patient Data Vital Signs Vital Signs Date Time Temp Pulse Resp B/P (MAP) Pulse Ox O2 Delivery O2 Flow Rate FiO2 02/25/20 02:00 52 18 144/88 (106) 94 Room Air 02/25/20 01:30 48 18 126/64 (84) 95 Room Air 02/24/20 23:55 97.8 70 28 112/68 (83) 96 Lab Results Laboratory Tests Test 02/24/20 23:22 White Blood Count 10.3 x10^3/uL Red Blood Count 4.20 x10^6/uL Hemoglobin 13.6 g/dL Hematocrit 40.8 % Mean Corpuscular Volume 97 fL Mean Corpuscular Hemoglobin 32 pg Mean Corpuscular Hemoglobin Concent 33 g/dL Red Cell Distribution Width 17.1 % Platelet Count 215 x10^3/uL Neutrophils (%) (Auto) 45 % Lymphocytes (%) (Auto) 47 % Monocytes (%) (Auto) 7 % Eosinophils (%) (Auto) 1 % Basophils (%) (Auto) 0 % Neutrophils # (Auto) 4.6 x10^3uL Lymphocytes # (Auto) 4.9 x10^3/uL Monocytes # (Auto) 0.7 x10^3/uL Eosinophils # (Auto) 0.1 x10^3/uL Basophils # (Auto) 0.0 x10^3/uL Sodium Level 140 mmol/L Potassium Level 4.1 mmol/L Chloride Level 104 mmol/L Carbon Dioxide Level 28 mmol/L Anion Gap 8 Blood Urea Nitrogen 28 mg/dL Creatinine 1.8 mg/dL Estimated GFR (Cockcroft-Gault) 37.5 BUN/Creatinine Ratio 16 Glucose Level 92 mg/dL Calcium Level 8.4 mg/dL Total Bilirubin 0.4 mg/dL Aspartate Amino Transf (AST/SGOT) 15 U/L Alanine Aminotransferase (ALT/SGPT) 30 U/L Alkaline Phosphatase 61 U/L Troponin I Quantitative < 0.017 ng/mL VN-Bji-E-Type Natriuretic Peptide 211 pg/mL Total Protein 7.2 g/dL Albumin 3.7 g/dL Albumin/Globulin Ratio 1.1 Current Medications Medications (Trade) Dose Ordered Sig/Fritz Route PRN Reason Start Time Stop Time Status Last Admin Dose Admin Aspirin (Aspirin Chewable) 162 mg 1X ONCE PO 02/25/20 00:15 02/25/20 00:16 DC 02/25/20 00:07 Sodium Chloride 1,000 ml @ 1,000 mls/hr 1X ONCE IV 02/25/20 00:15 02/25/20 01:14 DC 02/25/20 00:06 Iohexol (Omnipaque 350 Mg/ml) 100 ml 1X ONCE IV 02/25/20 00:30 02/25/20 00:31 DC 02/25/20 00:52 Info (Do NOT chart on this entry -- for MONITORING) 1 each PRN DAILY PRN MC SEE COMMENTS 02/25/20 00:15 02/25/20 02:37 DC Fentanyl Citrate (Fentanyl 2ml Vial) 25 mcg 1X ONCE IVP 02/25/20 02:00 02/25/20 02:01 DC 02/25/20 01:38 EKG EKG EKG ordered and interpreted by myself at 00 05 hours as normal sinus rhythm at 58 bpm, unremarkable intervals, no axis deviation, no ischemic changes, no STEMI Radiology/Procedures Radiology/Procedures PROCEDURE: CT ANGIOGRAPHY CHEST CT angiography chest with contrast. CT abdomen and pelvis without contrast. PQRS statement: CT scans at this facility use dose reduction including either automated exposure control, iterative reconstructions, and /or weight based radiation dosing via mA and kV modification when appropriate to reduce radiation dose to as low as reasonably achievable. HISTORY: Short of breath, right rib pain, right flank pain, back pain, right abdominal pain. TECHNIQUE: CT imaging the chest with contrast Pelvis without contrast with 75 mL Omnipaque 350 intravenous contrast and 3-D MIP reconstructions of the arteries acquired. Chest findings: Thyroidectomy. Calcified plaque thoracic aorta. Esophagus unremarkable. Heart size normal. No adenopathy in the chest. Pulmonary emphysema. 3 mm nodule right upper lobe abutting the mediastinal pleura image 103 mm minor fissure. No pleural effusions. Left lower lobe superior segment 6 mm solid nodule image 59 is new. Bones unremarkable. Abdomen findings: Lower lumbar disc disease. Cholecystectomy. Mild pneumobilia has decreased. 1.5 cm posterior hepatic lobe hypodense lesion corresponding to a hemangioma prior postcontrast imaging. Adrenal glands, pancreas, spleen and right kidney are unremarkable. Surgical changes left kidney and atrophy of the lower poles low cystic lesions are stable. No urinary calculi or hydronephrosis. Calcified likely aorta and iliac arteries as well as stenting. No small bowel obstruction or inflammatory changes in GI tract. Appendix is negative. Large volume of stool right-sided colon. No abdominal fluid. Pelvis findings: No bladder calculi. Prostate, rectum and bones are unremarkable. Mild inguinal adenopathy largest lymph nodes measuring 1.5 x 1.0 cm. IMPRESSION: 1. No acute process in the chest, abdomen or pelvis. No pulmonary artery emboli. 2. Large volume of stool likely constipation. 3. Mild inguinal adenopathy. 4. New 6 mm solid pulmonary nodule left lower lobe. This is indeterminate. Consider follow-up CT imaging in 6 months. 5. Pulmonary emphysema. Electronically signed by: Jared Plascencia MD (02/25/2020 1:45 AM) [facility] Course & Med Decision Making Course & Med Decision Making Ambulatory patient seen and evaluated by myself on immediate ER arrival by way of EMS Airway patent, breathing unlabored, hemodynamically stable patient. IV access obtained Patient's prior visit chart reviewed, extensive history and physical exam performed with subsequent ordering of pertinent laboratory and imaging studies Patient fluid resuscitated with 1 L IV normal saline and 25mcg fentanyl administered ED course reviewed with patient. Discussed grossly benign/unchanged laboratory results versus prior studies. Discussed imaging findings with special mention of left lower lobe pulmonary nodule that would require outpatient follow-up Discussed no obvious emergent causes of patient's right rib pain identified this admission. Reviewed patient's heart score 4 in patient who has not had any chest pain Patient responded well to ED intervention, patient was requesting to be discharged home Given that most likely diagnosis is likely musculoskeletal/somatic dysfunction of right chest wall from coughing in origin in fact that patient has previously scheduled follow-up with PCP in a few hours from now, I agree with his decision for discharge I discussed calculated heart score of 4 and increased risk of Mace and my recommendation for admission; however, patient still adamant for discharge home. He has full capacity to make this decision and was able to weigh risks and benefits of such I discussed that this may be an acute presentation of more serious pathology, patient understood this well but still adamant on being discharged home with close outpatient follow-up Strict return precautions were discussed with good understanding by patient, all questions and concerns addressed prior to ER departure Patient discharged home in improved condition with close PCP follow-up scheduled in several hours time from ER departure for further assessment and evaluation Dragon Disclaimer Dragon Disclaimer This electronic medical record was generated, in whole or in part, using a voice recognition dictation system. Departure Departure: Impression: Primary Impression: Rib pain on right side Additional Impressions: History of recent pneumonia Constipation Disposition: 01 HOME/RESIDENCE PRIOR TO ADM Condition: STABLE Referrals: PCP,UNKNOWN (PCP) Patient Instructions: Constipation, Adult, Pursed Lip Breathing, [id number] Justification of Admission: Justification of Admission: Justification of Admission Dx: N/A Comminuty Aquired Pneumonia: Med-High Risk Pt Problem Qualifiers MYKEL VIRK DO Feb 24, 2020 23:56
[2020-02-25] MEDS: IV NORMAL SALINE 1,000ML 1,000 ML IV ONE (00:06)
[2020-02-25] MEDS: ASPIRIN CHEWABLE 81 MG TABLET. PO ONE (00:07)
[2020-02-25 00:13] LABS: BASO % 0 % (0-3); EOS # 0.1 x10^3/uL (0.0-0.7); EOS % 1 % (0-3); HEMATOCRIT 40.8 % (39.0-53.0); HEMOGLOBIN 13.6 g/dL (13.0-17.5); LYMPH # 4.9 x10^3/uL (1.0-4.8); LYMPH % 47 % (24-48); MEAN CORPUSCULAR HEMOGLOBIN 32 pg (25-35); MEAN CORPUSCULAR HGB CONC 33 g/dL (31-37); MEAN CORPUSCULAR VOLUME 97 fL (79-100); MONO # 0.7 x10^3/uL (0.0-1.1); MONO % 7 % (0-9); NEUT # 4.6 x10^3uL (1.8-7.7); NEUT % 45 % (31-73); PLATELET COUNT 215 x10^3/uL (140-400); RED CELL DISTRIBUTION WIDTH 17.1 % (11.5-14.5); WHITE BLOOD COUNT 10.3 x10^3/uL (4.0-11.0)
[2020-02-25] MEDS ORDERED: CONTRAST GIVEN. MC PRN (00:15)
[2020-02-25 00:24] LABS: CALCIUM 8.4 mg/dL (8.5-10.1); CREATININE 1.8 mg/dL (0.7-1.3); GFR 37.5; POTASSIUM 4.1 mmol/L (3.5-5.1)
[2020-02-25 00:36] LABS: ALBUMIN 3.7 g/dL (3.4-5.0); ALBUMIN/GLOBULIN RATIO 1.1 (1.0-1.7); TOTAL BILIRUBIN 0.4 mg/dL (0.2-1.0); TOTAL PROTEIN 7.2 g/dL (6.4-8.2)
[2020-02-25] MEDS: IOHEXOL 350 MG/ML 100 ML VIAL. IV ONE (00:52)
--- NOTE | 2020-02-25 01:48 | RAD ---
CT angiography chest with contrast. CT abdomen and pelvis without contrast. PQRS statement: CT scans at this facility use dose reduction including either automated exposure control, iterative reconstructions, and /or weight based radiation dosing via mA and kV modification when appropriate to reduce radiation dose to as low as reasonably achievable. HISTORY: Short of breath, right rib pain, right flank pain, back pain, right abdominal pain. TECHNIQUE: CT imaging the chest with contrast Pelvis without contrast with 75 mL Omnipaque 350 intravenous contrast and 3-D MIP reconstructions of the arteries acquired. Chest findings: Thyroidectomy. Calcified plaque thoracic aorta. Esophagus unremarkable. Heart size normal. No adenopathy in the chest. Pulmonary emphysema. 3 mm nodule right upper lobe abutting the mediastinal pleura image 103 mm minor fissure. No pleural effusions. Left lower lobe superior segment 6 mm solid nodule image 59 is new. Bones unremarkable. Abdomen findings: Lower lumbar disc disease. Cholecystectomy. Mild pneumobilia has decreased. 1.5 cm posterior hepatic lobe hypodense lesion corresponding to a hemangioma prior postcontrast imaging. Adrenal glands, pancreas, spleen and right kidney are unremarkable. Surgical changes left kidney and atrophy of the lower poles low cystic lesions are stable. No urinary calculi or hydronephrosis. Calcified likely aorta and iliac arteries as well as stenting. No small bowel obstruction or inflammatory changes in GI tract. Appendix is negative. Large volume of stool right-sided colon. No abdominal fluid. Pelvis findings: No bladder calculi. Prostate, rectum and bones are unremarkable. Mild inguinal adenopathy largest lymph nodes measuring 1.5 x 1.0 cm. IMPRESSION: 1. No acute process in the chest, abdomen or pelvis. No pulmonary artery emboli. 2. Large volume of stool likely constipation. 3. Mild inguinal adenopathy. 4. New 6 mm solid pulmonary nodule left lower lobe. This is indeterminate. Consider follow-up CT imaging in 6 months. 5. Pulmonary emphysema. Electronically signed by: Jared Plascencia MD (02/25/2020 1:45 AM) [facility]
[2020-02-25 02:00] VITALS: BP 144/88
--- NOTE | 2020-02-25 06:25 | EKG ---
[address] [address] Test Date: 2020-02-25 Test Time: 00:00:53 Pat Name: SUYAPA KENNEY Department: Room: Gender: M Time Study Engineer: Deniz : 1950 Requested By: MYKEL VIRK Order Number: [id number] Reading MD: Measurements Intervals Nelson Rate: 58 P: 77 CT: 138 QRS: 0 QRSD: 84 T: 64 QT: 416 QTc: 412 Interpretive Statements SINUS RHYTHM LEFTWARD AXIS OTHERWISE NORMAL ECG RI6.02 No previous ECG available for comparison
== END 2020-02-25 02:25 | disposition home or self-care (01) ==
LOC: ER 23:35
DX: R07.81 Pleurodynia (principal); K59.00 Constipation, unspecified; F41.9 Anxiety disorder, unspecified; M19.90 Unspecified osteoarthritis, unspecified site; J44.9 Chronic obstructive pulmonary disease, unspecified; E11.9 Type 2 diabetes mellitus without complications; F17.200 Nicotine dependence, unspecified, uncomplicated
CPT/HCPCS: 36415; 71275; 74176; 80053; 83880; 84484; 85025; 93005; 96361; 96374; 99285; J3010; J7030; Q9967

== ENCOUNTER 2020-08-22 12:23 | Emergency (ER) | payer OTHER, MEDICAID ==
[~2020-08-22] VITALS: Ht 182.9 cm; Wt 75.0 kg
[~2020-08-22 12:23] MED LIST changes: -CLIN150C14 PO; +CLIN150C15 PO
--- NOTE | 2020-08-22 13:14 | PHYS DOC ---
Past History Past Medical History: Anxiety, Arthritis, Cancer, COPD, Diabetes, Renal Failure Additional Past Medical Histor: DDD, thyroid cancer and peripheral vascular disease Past Surgical History: Cholecystectomy, Other Additional Past Surgical Histo: L nephrectomy, thyroidectomy Smoking: Less than 1pk/day Alcohol Use: None Drug Use: None Adult General Chief Complaint Chief Complaint: RIB PAIN HPI HPI Patient is a 70-year-old male presents to the emergency department reporting at approximately 1130 today he was drinking some coffee and that went "down the wrong pipe "which initiated a coughing spell. Patient states that while he was coughing he felt a pop on the right side of his ribs. Patient states he immediately felt pain to his rib area where the pop sensation came from. Patient states that it hurts to take a deep breath and hurts to push on the area where he felt a pop come from. Patient rates his pain a 10/10 on a 1-10 pain scale. Patient denies shortness of breath however states it is hard to take a deep breath because of his rib pain. Patient denies chest congestion or nasal congestion. Patient denies any other physical complaints or physical concerns. Patient states he is a cigarette smoker, does not drink alcohol or use illicit drugs. Patient reports a history of COPD and hypothyroidism. Patient states he also has third stage renal disease. Review of Systems Review of Systems 14 body systems of review of systems have been reviewed. See HPI for pertinent positives and negative responses, otherwise all other systems are negative, nonpertinent or noncontributory. Allergies Allergies Allergies Coded Allergies Type Severity Reaction Last Updated Verified No Known Allergies Allergy Unknown 02/25/20 Yes Physical Exam Physical Exam Constitutional: Well developed, well nourished, non-toxic appearance. Patient grimacing from pain on his right ribs area. Patient is self splinting in tripod position. No respiratory distress appreciated. HENT: Normocephalic, atraumatic, bilateral external ears normal, oropharynx moist, no oral exudates, nose normal. Eyes: PERRLA, EOMI, conjunctiva normal, no discharge. Neck: Normal range of motion, no tenderness, supple, no stridor. Cardiovascular:Heart rate regular rhythm, no murmur, heart sounds S1-S2. Lungs & Thorax: Bilateral breath sounds clear to auscultation all lung roberto. Pain elicited to lower anterior lateral rib area without bruising or ecchymotic area. The patient is not hypoxic. No subcu air appreciated, no crepitus appreciated. Abdomen: Bowel sounds normal, soft, no tenderness, no masses, no pulsatile masses. Skin: Warm, dry, no erythema, no rash. Back: No tenderness, no CVA tenderness. Extremities: No tenderness, no cyanosis, no clubbing, ROM intact, no edema. Neurologic: Alert and oriented X 3, normal motor function, normal sensory function, no focal deficits noted. Psychologic: Affect normal, judgement normal, mood normal. EKG EKG [] Radiology/Procedures Radiology/Procedures PATIENT: SUYAPA KENNEY ACCOUNT: [id number] : 1950 LOCATION: ER AGE: 70 SEX: M EXAM STATUS: REG ER ORD. PHYSICIAN: LATRICE CHO APRN REASON: RT SIDE RIB PAIN AFTER COUGHING SPELL PROCEDURE: RIBS RIGHT AND PA CHEST XR RIBS MIN 3 VIEWS RT W/PA CHEST History: Reason: RT SIDE RIB PAIN AFTER COUGHING SPELL / Spl. Instructions: / History: Technique: PA view the chest and 4 additional views of the right ribs. Comparison: February 20, 2020 Findings: Hyperinflation with emphysematous changes. No consolidation. No pleural effusion. No pneumothorax. Subacute right ninth anterolateral rib fracture. Impression: 1. Subacute right ninth rib fracture. 2. Hyperinflation with emphysematous changes. Electronically signed by: Misa Schaefer DO (08/22/2020 2:20 PM) [id number] DICTATED AND SIGNED BY: MISA SCHAEFER DO DATE: 08/22/20 1418 CC: LATRICE CHO APRN; EMERGENCY,DEPARTMENT; NON,STAFF ~MTH0 0 Heart Score Risk Factors: Risk Factors: DM, Current or recent (<one month) smoker, HTN, HLP, family history of CAD, obesity. Risk Scores: Risk Factors: DM, Current or recent (<one month) smoker, HTN, HLP, family history of CAD, obesity. Course & Med Decision Making Course & Med Decision Making Pertinent Labs and Imaging studies reviewed. (See chart for details) 70-year-old male, vital signs reviewed, presents emergency department after feeling his rib pop while having a coughing spell. Physical examination concerning for possible rib fracture versus pneumothorax. The patient was treated with IV fentanyl 75 mcg related to severe pain. An x-ray was ordered of the chest with rib series. Patient states his pain level is a 2/10 on a 1-10 pain scale upon physical reexamination. Discussed with patient radiological findings of ninth rib fracture. There was no pneumothorax found. Patient gave verbal understanding of discharge home instructions, follow-up with primary care this week, will give prescription for 5/325 [place] 15 tablets, patient gave verbal understanding of following up with primary care for ongoing pain control, return to ER precautions or concerns, discharged home. Dragon Disclaimer Dragon Disclaimer This electronic medical record was generated, in whole or in part, using a voice recognition dictation system. Departure Departure: Impression: Primary Impression: Rib fracture Disposition: 01 DC HOME SELF CARE/HOMELESS Condition: GOOD Referrals: NON,STAFF (PCP) Patient Instructions: Rib Fracture Additional Instructions: You have a fracture of your ninth rib on the right, please take pain medication as prescribed, please follow-up with your primary care doctor for ongoing pain management and follow-up of your rib fracture. Return to the emergency department for worsening symptoms or other concerns. EMERGENCY DEPARTMENT GENERAL DISCHARGE INSTRUCTIONS Thank you for coming to [facility] Emergency Department (ED) today and trusting us with you care. We trust that you had a positivie experience in our Emergency Department. If you wish to speak to the department management, you may call the director at [phone]. YOUR FOLLOW UP INSTRUCTIONS ARE FOLLOWS: 1. Do you have a private Doctor? If you do not have a private doctor, please ask for a resource list of physicians or clinics that may be able to assist you with follo w up care. 2. The Emergency Physician has interpreted your x-rays. The X-Ray specialist will also review them. If there is a change in the findings, you will be notified in 48 hours when at all possible. 3. A lab test or culture has been done, your results will be reviewed and you will be notified if you need a change in treatment. ADDITIONAL INSTRUCTIONS AND INFORMATION: 1. Your care today has been supervised by a physician who is specially trained in emergency care. Many problems require more than one evaluation for a complete diagnosis and treatment. We recommend that you schedule your follow up appointment as rec ommended to ensure complete treatment of you illness or injury. If you are unable to obtain follow up care and continue to have a problem, or if your condition worsens, we recommend that you return to the ED. 2. We are not able to safely determine your condition over the phone nor are we able to give sound medical advice over the phone. For these safety reasons, if you call for medical advice we will ask you to come to the ED for further evaluation. 3. If you have any questions regarding these discharge instructions please call the ED at [phone]. SAFETY INFORMATION: In the interest of safety, wellness, and injury prevention; we encourage you to wear your sealbelt, if you smoke; quite smoking, and we encourage family to use a protective helmet for bicycling and other sporting events that present an increased risk for head injury. IF YOUR SYMPTOMS WORSEN OR NEW SYMPTOMS DEVELOP, OR YOU HAVE CONCERNS ABOUT YOUR CONDITION; OR IF YOUR CONDITION WORSENS WHILE YOU ARE WAITING FOR YOUR FOLLOW UP APPOINTMENT; EITHER CONTACT YOUR PRIMARY CARE DOCTOR, THE PHYSICIAN WHOSE NAME AND NUMBER YOU WERE GIVEN, OR RETURN TO THE ED IMMEDIATELY. Scripts Hydrocodone Bit/Acetaminophen (HYDROCODONE-APAP 5-325 ) 1 Each Tablet 1 TAB PO PRN Q6HRS PRN for PAIN, #15 TAB 0 Refills Prov: LATRICE CHO APRN 08/22/20 Problem Qualifiers Primary Impression: Rib fracture Encounter type: initial encounter Rib fracture type: single rib Fracture type: closed Laterality: right Qualified Codes: S22.31XA - Fracture of one rib, right side, initial encounter for closed fracture LATRICE CHO APRN Aug 22, 2020 13:14
--- NOTE | 2020-08-22 14:23 | RAD ---
XR RIBS MIN 3 VIEWS RT W/PA CHEST History: Reason: RT SIDE RIB PAIN AFTER COUGHING SPELL / Spl. Instructions: / History: Technique: PA view the chest and 4 additional views of the right ribs. Comparison: February 20, 2020 Findings: Hyperinflation with emphysematous changes. No consolidation. No pleural effusion. No pneumothorax. Subacute right ninth anterolateral rib fracture. Impression: 1. Subacute right ninth rib fracture. 2. Hyperinflation with emphysematous changes. Electronically signed by: Adonay Schaefer DO (08/22/2020 2:20 PM) [id number]
[2020-08-22] MEDS ORDERED: HYDR-2155 PO (15:14)
[2020-08-22 15:40] VITALS: BP 131/66
[2020-08-22] MEDS ORDERED: CYCL5TAB PO (21:53)
== END 2020-08-22 15:48 | disposition home or self-care (01) ==
LOC: ER 12:23
DX: S22.31XA Fracture of one rib, right side, initial encounter for closed fracture (principal); J44.9 Chronic obstructive pulmonary disease, unspecified; E03.9 Hypothyroidism, unspecified; F17.210 Nicotine dependence, cigarettes, uncomplicated; E11.22 Type 2 diabetes mellitus with diabetic chronic kidney disease; M19.90 Unspecified osteoarthritis, unspecified site; F17.200 Nicotine dependence, unspecified, uncomplicated; X50.9XXA Other and unspecified overexertion or strenuous movements or postures, initial encounter; Y93.89 Activity, other specified; Y92.89 Other specified places as the place of occurrence of the external cause; Y99.8 Other external cause status
CPT/HCPCS: 71101; 96374; 99283; J3010

== ENCOUNTER 2020-08-22 20:22 | Emergency (ER) | payer OTHER, MEDICAID ==
[~2020-08-22] VITALS: Ht 182.9 cm; Wt 75.0 kg
[~2020-08-22 20:22] MED LIST changes: +HYDR-2155 PO
--- NOTE | 2020-08-22 20:34 | PHYS DOC ---
Past History Past Medical History: Anxiety, Arthritis, Cancer, COPD, Diabetes, Renal Failure Additional Past Medical Histor: DDD, thyroid cancer and peripheral vascular disease Past Surgical History: Cholecystectomy, Other Additional Past Surgical Histo: L nephrectomy, thyroidectomy Smoking: Less than 1pk/day Alcohol Use: None Drug Use: None Adult General Chief Complaint Chief Complaint: RIB PAIN [facility] HPI Patient is a 70-year-old male presents to the emergency department complaining of right-sided rib pain and right-sided rib muscle spasms for the past hour. Patient states he was here earlier today and diagnosed with a ninth rib fracture on the right, was given pain medications in the ER which helped, was sent home with prescription for [place], patient states he had taken his [place] as directed, patient states he twisted funny while sitting in bed and the pain came back at a 10/10 on a 1-10 pain scale. Patient denies any shortness of breath however states that it is hard to take a deep breath because of the pain. Patient denies any other physical complaints or physical concerns. Review of Systems Review of Systems 14 body systems of review of systems have been reviewed. See HPI for pertinent positives and negative responses, otherwise all other systems are negative, nonpertinent or noncontributory. Allergies Allergies Allergies Coded Allergies Type Severity Reaction Last Updated Verified No Known Allergies Allergy Unknown 02/25/20 Yes Physical Exam Physical Exam Constitutional: Well developed, well nourished, non-toxic appearance. 70-year-old male in moderate distress, facial grimace, holding right side of ribs. HENT: Normocephalic, atraumatic, bilateral external ears normal, oropharynx moist, no oral exudates, nose normal. Eyes: PERRLA, EOMI, conjunctiva normal, no discharge. Neck: Normal range of motion, no tenderness, supple, no stridor. Cardiovascular:Heart rate regular rhythm, no murmur, heart sounds S1-S2 no auscultation. Lungs & Thorax: Bilateral breath sounds clear to auscultation all lung roberto. Pain to palpation near ninth rib, no crepitus appreciated, no ecchymotic areas on the chest, no subcu air appreciated. Abdomen: Bowel sounds normal, soft, no tenderness, no masses, no pulsatile masses. Skin: Warm, dry, no erythema, no rash. Back: No tenderness, no CVA tenderness. Extremities: No tenderness, no cyanosis, no clubbing, ROM intact, no edema. Neurologic: Alert and oriented X 3, normal motor function, normal sensory function, no focal deficits noted. Psychologic: Affect normal, judgement normal, mood normal. EKG EKG [] Radiology/Procedures Radiology/Procedures PATIENT: SUYAPA KENNEY ACCOUNT: [id number] : 1950 LOCATION: ER AGE: 70 SEX: M EXAM STATUS: REG ER ORD. PHYSICIAN: LATRICE CHO APRN REASON: INCREASED CHEST PAIN AND SHORT OF BREATH AFTER 9TH RIB FX RT SIDE PROCEDURE: CT CHEST WO CONTRAST Exam: CT of chest without contrast INDICATION: Increased chest pain shortness of breath TECHNIQUE: Sequential axial images through the chest obtained without IV contrast. Sagittal and coronal reformatted images were reconstructed from the axial data and reviewed. Comparisons: 08/22/2020 FINDINGS: Visualized portions of the thyroid are unremarkable. No enlarged mediastinal lymph nodes. Right size is normal. No pericardial effusion. Thoracic aorta has a normal course caliber. Pulmonary artery is not Airways are patent. No consolidation or pneumothorax. There is moderate centrilobular emphysematous change noted predominantly at the upper lungs. No pleural effusion or thickening. Visualized upper abdomen is unremarkable. Nondisplaced fracture involving the right lateral eighth rib which is acute. Subacute ninth rib fracture noted. No acute fractures identified. IMPRESSION: 1. Nondisplaced acute appearing fracture of the right eighth rib. Subacute ninth rib fracture noted. 2. No pneumothorax or underlying pulmonary contusion Exposure: One or more of the following in the visualized dose reduction techniques were utilized for this examination: 1. Automated exposure control 2. Adjustment of the MA and/or KV according to patient size 3. Use of iterative of reconstructive technique Electronically signed by: Sage Llamas MD (08/22/2020 9:33 PM) [facility] DICTATED AND SIGNED BY: SAGE LLAMAS MD DATE: 08/22/202126 CC: LATRICE CHO APRN; EMERGENCY,DEPARTMENT; PCP,UNKNOWN ~MTH0 0 Heart Score Risk Factors: Risk Factors: DM, Current or recent (<one month) smoker, HTN, HLP, family history of CAD, obesity. Risk Scores: Risk Factors: DM, Current or recent (<one month) smoker, HTN, HLP, family history of CAD, obesity. Course & Med Decision Making Course & Med Decision Making Pertinent Labs and Imaging studies reviewed. (See chart for details) 70-year-old male, vital signs reviewed, presents emergency department with acute onset of right-sided rib pain. Patient was seen her earlier today and diagnosed with a 9TH rib fracture. Was treated with pain medications and released, the patient did not have a pneumothorax. Patient returns with additional complaints of right-sided rib pain with muscle spasm. Will order CT to evaluate and rule out additional rib fractures, pneumothorax. ED plan to include IV muscle relaxer and IV fentanyl for pain of 10/10 on a 1-[address] chest without contrast revealed an acute eighth rib fracture along with a subacute ninth rib fracture. No pneumothorax appreciated. Discussed findings with patient, patient states his pain is tolerable at a 6/10 on a 1-10 pain scale. Discussed with patient to continue taking prescribed pain medication from last visit, follow-up with primary care tomorrow, will write prescription for Flexeril for muscle relaxer, patient gave verbal understanding of discharge home instructions, medication use, return to ER precautions and concerns, was discharged home without incident. Dragon Disclaimer Dragon Disclaimer This electronic medical record was generated, in whole or in part, using a voice recognition dictation system. Departure Departure: Impression: Primary Impression: Rib fracture Disposition: 01 DC HOME SELF CARE/HOMELESS Condition: GOOD Referrals: NON,STAFF (PCP) Patient Instructions: Rib Fracture Additional Instructions: I have given you an additional prescription for a muscle relaxer, take as directed, please call your primary care doctor tomorrow for follow-up for ongoing pain management, return to the emergency department for worsening symptoms or other concerns. Scripts Cyclobenzaprine Hcl (CYCLOBENZAPRINE HCL) 5 Mg Tablet 1 TAB PO TID for MUSCLE SPASMS, #30 TAB 0 Refills May take 1 or 2 tablets 3 times a day as needed for muscle spasm Prov: LATRICE CHO APRN 08/22/20 Problem Qualifiers Primary Impression: Rib fracture Encounter type: subsequent encounter Rib fracture type: multiple ribs Fracture type: closed Laterality: right Fracture healing: with routine healing Qualified Codes: S22.41XD - Multiple fractures of ribs, right side, subsequent encounter for fracture with routine healing LATRICE CHO APRN Aug 22, 2020 20:34
[2020-08-22] MEDS ORDERED: ORPHENADRINE CITRATE 60 MG/2 ML VIAL. IV ONE (20:45)
--- NOTE | 2020-08-22 21:35 | RAD ---
Exam: CT of chest without contrast INDICATION: Increased chest pain shortness of breath TECHNIQUE: Sequential axial images through the chest obtained without IV contrast. Sagittal and coron al reformatted images were reconstructed from the axial data and reviewed. Comparisons: 08/22/2020 FINDINGS: Visualized portions of the thyroid are unremarkable. No enlarged mediastinal lymph nodes. Right size is normal. No pericardial effusion. Thoracic aorta has a normal course caliber. Pulmonary artery is not Airways are patent. No consolidation or pneumothorax. There is moderate centrilobular emphysematous c hange noted predominantly at the upper lungs. No pleural effusion or thickening. Visualized upper abdomen is unremarkable. Nondisplaced fracture involving the right lateral eighth rib which is acute. Subacute ninth rib fract ure noted. No acute fractures identified. IMPRESSION: 1. Nondisplaced acute appearing fracture of the right eighth rib. Subacute ninth rib fracture noted. 2. No pneumothorax or underlying pulmonary contusion Exposure: One or more of the following in the visualized dose reduction techniques were utilized for this examination: 1. Automated exposure control 2. Adjustment of the MA and/or KV according to patient size 3. Use of iterative of reconstructive technique Electronically signed by: Safia Johnson MD (08/22/2020 9:33 PM) [facility]
[2020-08-22 21:42] VITALS: BP 117/76
[2020-08-22] MEDS ORDERED: CYCL5TAB PO (21:53)
== END 2020-08-22 21:55 | disposition home or self-care (01) ==
LOC: ER 20:22
DX: S22.31XD Fracture of one rib, right side, subsequent encounter for fracture with routine healing (principal); M19.90 Unspecified osteoarthritis, unspecified site; J44.9 Chronic obstructive pulmonary disease, unspecified; E11.22 Type 2 diabetes mellitus with diabetic chronic kidney disease; F17.200 Nicotine dependence, unspecified, uncomplicated; X50.9XXD Other and unspecified overexertion or strenuous movements or postures, subsequent encounter
CPT/HCPCS: 71250; 96374; 96375; 99284; J2360; J3010

== ENCOUNTER 2020-10-11 03:56 | Emergency (ER) | payer OTHER, MEDICAID ==
[~2020-10-11] VITALS: Ht 182.9 cm; Wt 75.0 kg
[~2020-10-11 03:56] MED LIST changes: +CYCL5TAB PO
[2020-10-11] MEDS ORDERED: IPRATRPIUM/ALBUTEROL 0.5/2.5MG 3 ML NEBU. ONE (04:07)
[2020-10-11 04:25] LABS: BASO % 1 % (0-3); EOS # 0.1 x10^3/uL (0.0-0.7); EOS % 1 % (0-3); HEMOGLOBIN 14.5 g/dL (13.0-17.5); LYMPH # 3.4 x10^3/uL (1.0-4.8); LYMPH % 45 % (24-48); MEAN CORPUSCULAR HEMOGLOBIN 33 pg (25-35); MEAN CORPUSCULAR HGB CONC 34 g/dL (31-37); MEAN CORPUSCULAR VOLUME 99 fL (79-100); MONO # 0.6 x10^3/uL (0.0-1.1); MONO % 8 % (0-9); NEUT # 3.5 x10^3uL (1.8-7.7); NEUT % 46 % (31-73); PLATELET COUNT 166 x10^3/uL (140-400); RED BLOOD COUNT 4.34 x10^6/uL (4.30-5.70); RED CELL DISTRIBUTION WIDTH 13.8 % (11.5-14.5); WHITE BLOOD COUNT 7.6 x10^3/uL (4.0-11.0)
[2020-10-11] MEDS ORDERED: IPRATRPIUM/ALBUTEROL 0.5/2.5MG 3 ML NEBU. NEB ONE ×2 (04:30)
[2020-10-11] MEDS ORDERED: methylPREDNISolone SOD SUCC PF 125 MG/2 ML VIAL. IV ONE (04:30)
[2020-10-11] MEDS ORDERED: IV NORMAL SALINE 1,000ML 1,000 ML IV ONE (04:30)
[2020-10-11 04:34] LABS: CALCIUM 8.8 mg/dL (8.5-10.1); CREATININE 1.6 mg/dL (0.7-1.3); GFR 42.8; POTASSIUM 4.3 mmol/L (3.5-5.1)
[2020-10-11 04:46] LABS: ALBUMIN 4.3 g/dL (3.4-5.0); ALBUMIN/GLOBULIN RATIO 1.3 (1.0-1.7); MAGNESIUM 2.1 mg/dL (1.8-2.4); TOTAL BILIRUBIN 0.4 mg/dL (0.2-1.0); TOTAL PROTEIN 7.5 g/dL (6.4-8.2)
--- NOTE | 2020-10-11 04:51 | PHYS DOC ---
Past History Past Medical History: Cancer, COPD, Hypothyroid, RI Additional Past Medical Histor: DDD, thyroid cancer and peripheral vascular disease Past Surgical History: Cancer Surgery, Cholecystectomy, Other Additional Past Surgical Histo: PARTIAL NEPHRECTOMY Smoking: Less than 1pk/day Alcohol Use: None Drug Use: None General Adult EDM: Chief Complaint: SHORTNESS OF BREATH HPI: HPI: Patient is a 70-year-old male coming in for difficulty breathing. Patient states over the past few days he has been feeling "bad" but had difficulty breathing worsening tonight. Patient has a history of COPD (smokes 5 cigarettes daily) but states he has not had many problems with exacerbation. Uses 2 L nasal cannula at night. Patient says he had an increase of his baseline cough which is productive of yellow phlegm. Denies any fevers, vomiting, diarrhea. Patient has both the doses of the COVID-19 vaccine completed. States he used his nebulizer at home about 2 and half hours prior to arrival without improvement. Patient states he has been compliant on medications. Has a history of prior RI, significant peripheral vascular disease and neuropathy. Is taking Plavix. Review of Systems: Review of Systems: All other systems within normal limits except for as noted in the HPI Current Medications: Current Meds: Current Medications Medications (Trade) Dose Ordered Sig/Fritz Start Time Stop Time Status Last Admin Dose Admin Albuterol/ Ipratropium (Duoneb) 3 ml 1X ONCE 10/11/20 04:30 10/11/20 04:31 DC 10/11/20 04:16 3 ML Methylprednisolone Sodium Succinate (SOLU-Medrol 125MG VIAL) 125 mg 1X ONCE 10/11/20 04:30 10/11/20 04:31 DC Sodium Chloride 1,000 ml @ 1,000 mls/hr 1X ONCE 10/11/20 04:30 10/11/20 05:29 Allergies: Allergies: Allergies Coded Allergies Type Severity Reaction Last Updated Verified No Known Allergies Allergy Unknown 02/25/20 Yes Physical Exam: PE: Constitutional: Well developed, well nourished, no acute distress, non-toxic appearance. [] HENT: Normocephalic, atraumatic, bilateral external ears normal, nose normal. [] Eyes: PERRLA, conjunctiva normal, no discharge. [] Neck: No rigidity, supple, no stridor. [] Cardiovascular: Regular rate and rhythm, brisk cap refill [] Lungs & Thorax: Mild tachypnea, accessory muscle use, bilateral wheezes, symmetric chest rise [] Abdomen: Soft, nondistended. Skin: Warm, dry, no erythema, no rash. [] Back: Unremarkable Extremities: No deformities, range of motion grossly intact, no lower extremity edema [] Neurologic: Alert and oriented X 3, no focal deficits noted. [] Psychologic: Affect normal, judgement normal, mood normal. [] Current Patient Data: Labs: Laboratory Tests Test 10/11/20 04:04 White Blood Count 7.6 x10^3/uL (4.0-11.0) Red Blood Count 4.34 x10^6/uL (4.30-5.70) Hemoglobin 14.5 g/dL (13.0-17.5) Hematocrit 43.0 % (39.0-53.0) Mean Corpuscular Volume 99 fL (79-100) Mean Corpuscular Hemoglobin 33 pg (25-35) Mean Corpuscular Hemoglobin Concent 34 g/dL (31-37) Red Cell Distribution Width 13.8 % (11.5-14.5) Platelet Count 166 x10^3/uL (140-400) Neutrophils (%) (Auto) 46 % (31-73) Lymphocytes (%) (Auto) 45 % (24-48) Monocytes (%) (Auto) 8 % (0-9) Eosinophils (%) (Auto) 1 % (0-3) Basophils (%) (Auto) 1 % (0-3) Neutrophils # (Auto) 3.5 x10^3uL (1.8-7.7) Lymphocytes # (Auto) 3.4 x10^3/uL (1.0-4.8) Monocytes # (Auto) 0.6 x10^3/uL (0.0-1.1) Eosinophils # (Auto) 0.1 x10^3/uL (0.0-0.7) Basophils # (Auto) 0.0 x10^3/uL (0.0-0.2) D-Dimer (Cyndi) 0.51 mg/L (0.00-0.50) H Sodium Level 141 mmol/L (136-145) Potassium Level 4.3 mmol/L (3.5-5.1) Chloride Level 104 mmol/L (98-107) Carbon Dioxide Level 27 mmol/L (21-32) Anion Gap 10 (6-14) Blood Urea Nitrogen 28 mg/dL (8-26) H Creatinine 1.6 mg/dL (0.7-1.3) H Estimated GFR (Cockcroft-Gault) 42.8 BUN/Creatinine Ratio 18 (6-20) Glucose Level 121 mg/dL (70-99) H Calcium Level 8.8 mg/dL (8.5-10.1) Magnesium Level Pending Total Bilirubin Pending Aspartate Amino Transferase (AST) Pending Alanine Aminotransferase (ALT) Pending Alkaline Phosphatase Pending SQ-Yht-O-Type Natriuretic Peptide Pending Total Protein Pending Albumin Pending Albumin/Globulin Ratio Pending Vital Signs: Vital Signs Date Time Temp Pulse Resp B/P (MAP) Pulse Ox O2 Delivery O2 Flow Rate FiO2 10/11/20 04:24 99 Nasal Cannula 4.0 EKG: EKG: Normal sinus rhythm, heart rate 70 bpm, left anterior fascicular block, left axis deviation, no ST elevation or depression, normal intervals, no ectopy. [] Radiology/Procedures: Radiology/Procedures: [] Heart Score: C/O Chest Pain: N/A Risk Factors: Risk Factors: DM, Current or recent (<one month) smoker, HTN, HLP, family history of CAD, obesity. Risk Scores: Score 0 - 3: 2.5% MACE over next 6 weeks - Discharge Home Score 4 - 6: 20.3% MACE over next 6 weeks - Admit for Clinical Observation Score 7 - 10: 72.7% MACE over next 6 weeks - Early Invasive Strategies Course & Med Decision Making: Course & Med Decision Making Pertinent Labs and Imaging studies reviewed. (See chart for details) Patient feeling better after IV fluids and nebulizers. Given steroids IV. Will discharge for COPD exacerbation. Patient stating that he has a history of some colon wall thickening and is concerned about his colonoscopy and possibly having cancer. Has been having a hard time getting to [facility] where his primary care provider is. Discussed other options for closer GI physicians. [] Alvino Disclaimer: Dragkia Disclaimer: This electronic medical record was generated, in whole or in part, using a voice recognition dictation system. Departure Departure: Impression: Primary Impression: COPD exacerbation Disposition: 01 DC HOME SELF CARE/HOMELESS Condition: IMPROVED Referrals: PCP,UNKNOWN (PCP) AUDREY GASTELUM MD Patient Instructions: Chronic Obstructive Pulmonary Disease Exacerbation Scripts Amoxicillin/Potassium Clav (AUGMENTIN 875-125 TABLET) 1 Each Tablet 1 TAB PO BID for antiobiotic for 7 Days, #14 TAB 0 Refills Prov: THAIS SHUKLA MD 10/11/20 Prednisone (PREDNISONE) 50 Mg Tablet 1 TAB PO DAILY for steroid for 5 Days, #5 TAB You received this medication in the emergency room today. You will starting your next dose tomorrow. Prov: THAIS SHUKLA MD 10/11/20 THAIS SHUKLA MD Oct 11, 2020 04:51
[2020-10-11 04:58] VITALS: BP 119/60
--- NOTE | 2020-10-11 04:58 | RAD ---
XR CHEST 2V History: Reason: chest pain, copd Comparison: PA chest 08/22/2020. Findings: The cardiomediastinal silhouette is normal. Pulmonary vasculature is normal. The lungs are hyperexpan ded. There is no acute airspace disease. No pleural effusion or pneumothorax is seen. There is no acu te bone abnormality. IMPRESSION: 1. No acute cardiopulmonary process. 2. COPD. Electronically signed by: Vlad Foss MD (10/11/2020 4:56 AM) [facility]ENTER[facility]av[facility]
[2020-10-11] MEDS ORDERED: AMOX1TAB61 PO (05:14)
[2020-10-11] MEDS ORDERED: PRED50TA PO (05:14)
--- NOTE | 2020-10-11 06:25 | EKG ---
[address] [address] Test Date: 2020-10-11 Test Time: 04:21:36 Pat Name: SUYAPA KENNEY Department: Room: Gender: M Color Worker: : 1950 Requested By: THAIS SHUKLA Order Number: [id number] Reading MD: Measurements Intervals [place] Rate: 74 P: 90 NV: 142 QRS: -52 QRSD: 84 T: 78 QT: 404 QTc: 449 Interpretive Statements SINUS RHYTHM ABNORMAL LEFT AXIS DEVIATION LEFT ANTERIOR FASCICULAR BLOCK QRS(T) CONTOUR ABNORMALITY CONSIDER ANTEROSEPTAL MYOCARDIAL DAMAGE T ABNORMALITY IN HIGH LATERAL LEADS ABNORMAL ECG RI6.02 No previous ECG available for comparison
== END 2020-10-11 05:29 | disposition home or self-care (01) ==
LOC: ER 03:56
DX: J44.1 Chronic obstructive pulmonary disease with (acute) exacerbation (principal); E03.9 Hypothyroidism, unspecified; I25.2 Old myocardial infarction; F17.200 Nicotine dependence, unspecified, uncomplicated; Z90.49 Acquired absence of other specified parts of digestive tract
CPT/HCPCS: 36415; 71046; 80053; 83605; 83735; 83880; 84484; 85025; 85379; 93005; 94640; 96361; 96374; 99285; J2930; J7030

== ENCOUNTER 2020-10-14 20:05 | Emergency (ER) | payer OTHER, MEDICAID ==
[~2020-10-14] VITALS: Ht 182.9 cm; Wt 75.0 kg
--- NOTE | 2020-10-14 20:09 | PHYS DOC ---
Past History Past Medical History: Cancer, Constipation, COPD, Hypothyroid, [place] Additional Past Medical Histor: DDD, thyroid cancer and peripheral vascular disease Past Surgical History: Cancer Surgery, Cholecystectomy, Other Additional Past Surgical Histo: PARTIAL NEPHRECTOMY Smoking: Less than 1pk/day Alcohol Use: None Drug Use: None General Adult HPI: HPI: ".. I got chronic constipation. .. I ve been follow at ... and I did not get a good clean out with my last colon scope exam.. because of constipation... on that exam.. they said I had some colon changes... inflammation vs cancera.. .. but it seems like they have dropped the ball on all the work up.. and now I all constipated again.. and worried.. You see I am .. somewhat of a cancer magnetic..." Patient is a 70 year old male who presents with above hx and complaints of abdomen pain. 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 Patient does have significant history of skin cancer basal and squamous cell requiring multiple surgeries. Patient states he is only had very small hard balls of stool for the last week. States colonoscopy previously at last month was limited because of retained stool. Poor there were abnormal findings on the limited exam such as thickening bowel, with a differential diagnosis of colitis or possible cancer.. Patient has had prior abdomen surgeries including left-sided nephrectomy, multiple vascular stents, nerve transfer and left elbow, thyroidectomy's, cholecystectomy's, bilateral cataract extractions, multiple colonoscopies, and multiple EGDs. Patient denies any recent trauma. No history of bad food. No history of travel. No specific ill contacts. Patient normally follows at for all his care. Patient has past medical history of hemangiomas gallbladder disease thyroidectomy left partial nephrectomy due to cancer, multiple skin cancers,DM stents, neuropathy, peripheral vascular disease, gastric ulcers, stage III kidney failure, COPD, degenerative joint changes, rib fractures from coughing., Coronary artery disease, severe peripheral vascular disease, hypothyroidism, multiple syncopal episodes, enlarged prostate, dysrhythmias bradycardia, hypertension, obstructive sleep apnea, tremors and peripheral neuropathy. Bradycardia patient does continue to smoke. The patient, does have referral to Dr. Harris, on previous ED visit. Review of Systems: Review of Systems: Constitutional: Denies fever or chills Eyes: Denies change in visual acuity HENT: Denies nasal congestion or sore throat Respiratory: Denies cough or shortness of breath Cardiovascular: Denies chest pain or edema GI: Complains of abdominal pain, nausea, and constipation. Patient denies vomiting, bloody stools or diarrhea : Denies dysuria Musculoskeletal: Denies back pain or joint pain Integument: Denies rash Neurologic: Denies headache, focal weakness or sensory changes Endocrine: Denies polyuria or polydipsia Lymphatic: Denies swollen glands Psychiatric: Denies depression or anxiety Family History: Family History: Family history significant for brother of lung cancer at age 62 has a brother and penetrated she in [place] because of drug abuse brother. Mother age 62 due to lung cancer one aunt of lung cancer his father of emphysema at age 69 Current Medications: Current Meds: See nursing for home meds Allergies: Allergies: Allergies Coded Allergies Type Severity Reaction Last Updated Verified No Known Allergies Allergy Unknown 02/25/20 Yes Physical Exam: PE: Constitutional: Moderate acute distress, non-toxic appearance. [] HENT: Normocephalic, atraumatic, bilateral external ears normal, oropharynx moist, no oral exudates, nose normal. Multiple scars due to surgical removal of skin cancers Eyes: PERRLA, EOMI, conjunctiva normal, no discharge. [] Neck: Normal range of motion, no tenderness, supple, no stridor. [] Cardiovascular:Heart rate regular rhythm, no murmur [] Lungs & Thorax: Bilateral breath sounds to apex with scattered wheezes on auscultation [] Abdomen: Bowel sounds normal, soft, generalized tenderness, very distended and tympanic, no masses, no pulsatile masses. Rectal exam showed minimal stool in rectal vault but what stools there was hard small balls.. Did have findings of hemorrhoids. No active bleeding. Old surgery scars. No focal areas of rebound. Skin: Warm, dry, no erythema, no rash. Multiple areas scars due to removal of of previous skin cancer . Senile keratosis Back: No tenderness, no CVA tenderness. [] Extremities: No tenderness, no cyanosis, no clubbing, ROM intact, no edema. Arthritic changes. No psoas sign. Surgical scar left elbow Neurologic: Alert and oriented X 3, moves all extremities on request, does have decreased sensory bilateral feet, no new focal deficits noted. [] Psychologic: Affect anxious, judgement normal, mood normal. [] EKG: EKG: My interpretation EKG shows a sinus rhythm at 75 bpm. There is some leftward axis. There is nonspecific changes. No findings acute STEMI with contralateral changes. [] Radiology/Procedures: Radiology/Procedures: [][address] [id number] IMAGING REPORT Signed PATIENT: SUYAPA KENNEY ACCOUNT: [id number] : 1950 LOCATION: ER AGE: 70 SEX: M EXAM STATUS: REG ER ORD. PHYSICIAN: ALEXANDRO HERNANDES MD REASON: pain, CONSTIPATION PROCEDURE: ACUTE ABDOMEN SERIES . Acute Abdominal Series: 10/14/2020 9:21 PM Reason for study: Pain, constipation Comparison studies: CT abdomen/pelvis 02/25/2020. Technique: Frontal view of the chest was obtained along with supine and upright views of the abdomen. Findings: Nonobstructive bowel gas pattern. No air fluid levels or free air. Surgical clips are identified in the left midabdomen. Moderate amount of stool is noted within colon. The lungs are clear without acute consolidative opacity. No pleural effusion or pneumothorax. The cardiac and mediastinal contours are normal. Severe pulmonary emphysema. Visualized osseous structures are intact. IMPRESSION: 1. Nonobstructed bowel gas pattern. 2. No acute cardiopulmonary findings. Pulmonary emphysema. 3. Moderate amount of stool noted throughout the colon. Correlate with constipation. Electronically signed by: Reshma Nur MD (10/14/2020 10:03 PM) [facility] DICTATED AND SIGNED BY: RESHMA NUR MD DATE: 10/14/202200 CC: ALEXANDRO HERNANDES MD; PCP,UNKNOWN ~MTH0 0 Heart Score: C/O Chest Pain: N/A HEART Score for Chest Pain: HEART Score for Chest Pain Response (Comments) Value History Moderately Suspicious 1 ECG Nonspecific Repolarizatio 1 Age > 65 2 Risk Factors 1 or 2 Risk Factors 1 Troponin < Normal Limit 0 Total 5 Risk Factors: Risk Factors: DM, Current or recent (<one month) smoker, HTN, HLP, family history of CAD, obesity. Risk Scores: Score 0 - 3: 2.5% MACE over next 6 weeks - Discharge Home Score 4 - 6: 20.3% MACE over next 6 weeks - Admit for Clinical Observation Score 7 - 10: 72.7% MACE over next 6 weeks - Early Invasive Strategies Course & Med Decision Making: Course & Med Decision Making Pertinent Labs and Imaging studies reviewed. (See chart for details) Patient remain on a clear fluid diet only for the next 48 hours. No solids. No milk products. Clear fluids only must allow bowel rest. Take meds as previous directed. Patient given a prescription for 2 doses of GoLYTELY, mixed with fruit juices and drink this until his constipation resolves. Recommended rescheduling his colonoscopy. Follow-up with either primary care and GI at if unable to get into follow-up with Dr. Harris. Return if any concerns. Impression: 1. Chronic constipation 2. Abdomen Pain- [] Dragon Disclaimer: Dragon Disclaimer: This electronic medical record was generated, in whole or in part, using a voice recognition dictation system. Departure Departure: Referrals: PCP,UNKNOWN (PCP) Scripts Peg 3350/Na Sulf,Bicarb,Cl/Kcl (GOLYTELY SOLUTION) 4,000 Ml Soln.recon 4000 ML PO BID for constipation for 1 Day, [facility] Prov: ALEXANDRO HERNANDES MD 10/14/20 Alvino Disclaimer This chart was dictated in whole or in part using Voice Recognition software in a busy, high-work load, and often noisy Emergency Department environment. It may contain unintended and wholly unrecognized errors or omissions. ALEXANDRO HERNANDES MD Oct 14, 2020 20:09
[2020-10-14] MEDS ORDERED: MAGNESIUM HYDROXIDE 2,400 MG/30 ML ORAL.SUSP. PO ONE (21:00)
[2020-10-14] MEDS ORDERED: FAMOTIDINE 20 MG/2 ML VIAL IVP ONE (21:00)
[2020-10-14] MEDS ORDERED: KETOROLAC 30 MG/ML VIAL. IVP ONE (21:00)
[2020-10-14] MEDS ORDERED: IV RINGERS SOLUTION,LACTATED 1,000 ML IV SCH (21:00)
[2020-10-14] MEDS ORDERED: ONDANSETRON PF 4 MG/2 ML VIAL. IVP ONE (21:00)
[2020-10-14] MEDS ORDERED: BISACODYL 10 MG SUPP.RECT ONE (21:17)
[2020-10-14] MEDS ORDERED: BISACODYL 10 MG SUPP.RECT PR ONE (21:30)
[2020-10-14 21:44] LABS: BASO % 0 % (0-3); EOS % 0 % (0-3); HEMOGLOBIN 13.8 g/dL (13.0-17.5); LYMPH # 1.1 x10^3/uL (1.0-4.8); LYMPH % 13 % (24-48); MEAN CORPUSCULAR HEMOGLOBIN 33 pg (25-35); MEAN CORPUSCULAR HGB CONC 34 g/dL (31-37); MEAN CORPUSCULAR VOLUME 99 fL (79-100); MONO # 0.4 x10^3/uL (0.0-1.1); MONO % 5 % (0-9); NEUT # 7.1 x10^3uL (1.8-7.7); NEUT % 82 % (31-73); PLATELET COUNT 173 x10^3/uL (140-400); RED BLOOD COUNT 4.16 x10^6/uL (4.30-5.70); RED CELL DISTRIBUTION WIDTH 14.1 % (11.5-14.5); WHITE BLOOD COUNT 8.6 x10^3/uL (4.0-11.0)
[2020-10-14 21:47] LABS: BACTERIA,URINE 0 /HPF (0-FEW); BILIRUBIN,URINE NEG (NEG); CLARITY,URINE CLEAR; COLOR,URINE YELLOW; GLUCOSE,URINE NEG (NEG); NITRITE,URINE NEG (NEG); SQUAMOUS EPITHELIAL CELL,UR OCC /LPF; UROBILINOGEN,URINE 0.2 mg/dL (0.2 mg/dL); WBC,URINE 0 /HPF (0-4)
[2020-10-14 21:53] LABS: CREATININE 1.7 mg/dL (0.7-1.3); GFR 39.9; POTASSIUM 4.2 mmol/L (3.5-5.1)
[2020-10-14 22:00] LABS: ALBUMIN 4.2 g/dL (3.4-5.0); DIRECT BILIRUBIN 0.1 mg/dL (0.0-0.2); TOTAL BILIRUBIN 0.3 mg/dL (0.2-1.0); TOTAL PROTEIN 7.3 g/dL (6.4-8.2)
--- NOTE | 2020-10-14 22:05 | RAD ---
. Acute Abdominal Series: 10/14/2020 9:21 PM Reason for study: Pain, constipation Comparison studies: CT abdomen/pelvis 02/25/2020. Technique: Frontal view of the chest was obtained along with supine and upright views of the abdomen. Findings: Nonobstructive bowel gas pattern. No air fluid levels or free air. Surgical clips are identified in t he left midabdomen. Moderate amount of stool is noted within colon. The lungs are clear without acute consolidative opacity. No pleural effusion or pneumothorax. The car diac and mediastinal contours are normal. Severe pulmonary emphysema. Visualized osseous structures are intact. IMPRESSION: 1. Nonobstructed bowel gas pattern. 2. No acute cardiopulmonary findings. Pulmonary emphysema. 3. Moderate amount of stool noted throughout the colon. Correlate with constipation. Electronically signed by: Shauna Finch MD (10/14/2020 10:03 PM) [facility]
[2020-10-14] MEDS ORDERED: PEG4000S8 PO (23:38)
[2020-10-15] VITALS: BP 129/72
[2020-10-15] MEDS ORDERED: ONDANSETRON PF 4 MG/2 ML VIAL. IVP ONE (00:15)
--- NOTE | 2020-10-15 06:21 | EKG ---
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
== END 2020-10-15 00:22 | disposition home or self-care (01) ==
LOC: ER 20:05
DX: K59.09 Other constipation (principal); J44.9 Chronic obstructive pulmonary disease, unspecified; E03.9 Hypothyroidism, unspecified; I73.9 Peripheral vascular disease, unspecified; I25.2 Old myocardial infarction; Z90.49 Acquired absence of other specified parts of digestive tract; Z90.5 Acquired absence of kidney; F17.200 Nicotine dependence, unspecified, uncomplicated
CPT/HCPCS: 36415; 74022; 80048; 80076; 81001; 82150; 82550; 83690; 84484; 85025; 85610; 85730; 93005; 96361; 96374; 96375; 96376; 99285; J1885; J2405; J3490; J7120

== ENCOUNTER 2021-01-18 16:15 | Emergency (ER) | payer OTHER, MEDICAID ==
[~2021-01-18] VITALS: Ht 182.9 cm; Wt 70.4 kg
[~2021-01-18 16:15] MED LIST changes: +PEG4000S8 PO
[2021-01-18] MEDS ORDERED: IPRATRPIUM/ALBUTEROL 0.5/2.5MG 3 ML NEBU. ONE ×3 (16:25→16:33)
--- NOTE | 2021-01-18 17:04 | PHYS DOC ---
Past History Past Medical History: Cancer, Constipation, COPD, Hypothyroid, [place] Additional Past Medical Histor: DDD, thyroid cancer and peripheral vascular disease, kidney cancer Past Surgical History: Cancer Surgery, Cholecystectomy, Other Additional Past Surgical Histo: thyroidectomy; bx of liver; lt partial nephrectomy;skin can of nose; stents Smoking: Less than 1pk/day Alcohol Use: None Drug Use: None General Adult EDM: Chief Complaint: MULTIPLE COMPLAINTS HPI: HPI: 70-year-old male presents with chest pain and shortness of breath. Patient has been having issues with this on and off for at least 6 weeks. He presents today because he has had increased sharp pain in the left side of the chest and worsened shortness of breath. Patient has COPD. He has been hospitalized and has been intubated previously for COPD. He describes the chest pain as a sharp sensation about "three quarters of an inch in". Moderate intensity. It is worse with deep breathing and reproducible with palpation. The pain radiates around his ribs to his back. He has shortness of breath but denies diaphoresis. Denies fever or chills. Review of Systems: Review of Systems: Constitutional: Denies fever or chills Eyes: Denies change in visual acuity HENT: Denies nasal congestion or sore throat Respiratory: Cough with shortness of breath Cardiovascular: Chest pain GI: Denies abdominal pain, nausea, vomiting, bloody stools or diarrhea : Denies dysuria Musculoskeletal: Denies back pain or joint pain Integument: Denies rash Neurologic: Denies headache, focal weakness or sensory changes Endocrine: Denies polyuria or polydipsia Lymphatic: Denies swollen glands Psychiatric: Denies depression or anxiety Current Medications: Current Meds: Current Medications Medications (Trade) Dose Ordered Sig/Fritz Start Time Stop Time Status Last Admin Dose Admin Albuterol/ Ipratropium (Duoneb) 3 ml STK-MED ONCE 01/18/21 16:33 01/18/21 16:33 DC Allergies: Allergies: Allergies Coded Allergies Type Severity Reaction Last Updated Verified No Known Allergies Allergy Unknown 01/18/21 Yes Physical Exam: PE: Constitutional: Well developed, well nourished, no acute distress, non-toxic appearance. [] HENT: Normocephalic, atraumatic, bilateral external ears normal, oropharynx moist, no oral exudates, nose normal. [] Eyes: PERRLA, EOMI, conjunctiva normal, no discharge. [] Neck: Normal range of motion, no tenderness, supple, no stridor. [] Cardiovascular: Heart rate regular rhythm, no murmur [] Lungs & Thorax: Bilateral breath sounds significantly diminished throughout. Tenderness with palpation of the ribs at the level of T6-8 [] Abdomen: Bowel sounds normal, soft, no tenderness, no masses, no pulsatile masses. [] Skin: Warm, dry, no erythema, no rash. [] Back: No tenderness, no CVA tenderness. [] Extremities: No tenderness, no cyanosis, no clubbing, ROM intact, no edema. [] Neurologic: Alert and oriented X 3, normal motor function, normal sensory function, no focal deficits noted. [] Psychologic: Affect normal, judgement normal, mood normal. [] Current Patient Data: Vital Signs: Vital Signs Date Time Temp Pulse Resp B/P (MAP) Pulse Ox O2 Delivery O2 Flow Rate FiO2 01/18/21 16:36 85 17 140/76 98 resp tx EKG: EKG: [] Radiology/Procedures: Radiology/Procedures: [] Impressions: Exam: Chest one view INDICATION: Shortness of breath TECHNIQUE: Frontal view of the chest Comparisons: 10/11/2020 FINDINGS: The cardiomediastinal silhouette and pulmonary vessels are within normal limits. The lung and pleural spaces are clear. IMPRESSION: No acute cardiopulmonary process. Electronically signed by: Safia Llamas MD (01/18/2021 5:38 PM) [facility] DICTATED AND SIGNED BY: SAFIA LLAMAS MD DATE: 01/18/21 1736 CC: HUMZA SEAMAN DO; PCP,UNKNOWN ~MTH0 0 Heart Score: C/O Chest Pain: Yes HEART Score for Chest Pain: HEART Score for Chest Pain Response (Comments) Value History Slighlty/Non-Suspicious 0 ECG Nonspecific Repolarizatio 1 Age > 65 2 Risk Factors 1 or 2 Risk Factors 1 Total 4 Risk Factors: Risk Factors: DM, Current or recent (<one month) smoker, HTN, HLP, family history of CAD, obesity. Risk Scores: Score 0 - 3: 2.5% MACE over next 6 weeks - Discharge Home Score 4 - 6: 20.3% MACE over next 6 weeks - Admit for Clinical Observation Score 7 - 10: 72.7% MACE over next 6 weeks - Early Invasive Strategies Course & Med Decision Making: Course & Med Decision Making Pertinent Labs and Imaging studies reviewed. (See chart for details) The patient has been given 2 DuoNeb treatments which has improved his shortness of breath. He is able to talk in full sentences. His breath sounds are still significantly diminished. Have also given him 125 Solu-Medrol. The patient's labs are unremarkable. His creatinine is 1.6 but this is similar to his previous in the chart. His breathing has improved after breathing treatments. I explained to the patient that the most conservative thing would be for him to stay at least overnight in the hospital for further trending of his troponin. The patient has people coming over tomorrow morning and things to do at home. He understands the risks of leaving but would prefer to go home. He will call EMS if his condition worsens. He is feeling better at this time. [] Alvino Disclaimer: Alvino Disclaimer: This electronic medical record was generated, in whole or in part, using a voice recognition dictation system. Departure Departure: Impression: Primary Impression: Chronic obstructive pulmonary disease with (acute) exacerbation Additional Impression: Chest pain Qualified Codes: R07.9 - Chest pain, unspecified Disposition: 01 HOME / SELF CARE / HOMELESS Condition: STABLE Referrals: PCP,UNKNOWN (PCP) Patient Instructions: Chest Pain (Nonspecific), [id number], Chronic Obstructive Pulmonary Disease Exacerbation, [id number] HUMZA SEAMAN DO Jan 18, 2021 17:04
[2021-01-18 17:10] LABS: BASO # 0.1 x10^3/uL (0.0-0.2); BASO % 1 % (0-3); EOS # 0.1 x10^3/uL (0.0-0.7); EOS % 1 % (0-3); HEMATOCRIT 41.9 % (39.0-53.0); HEMOGLOBIN 14.4 g/dL (13.0-17.5); LYMPH # 2.5 x10^3/uL (1.0-4.8); LYMPH % 33 % (24-48); MEAN CORPUSCULAR HEMOGLOBIN 34 pg (25-35); MEAN CORPUSCULAR HGB CONC 34 g/dL (31-37); MEAN CORPUSCULAR VOLUME 98 fL (79-100); MONO # 0.5 x10^3/uL (0.0-1.1); MONO % 7 % (0-9); NEUT # 4.3 x10^3uL (1.8-7.7); NEUT % 58 % (31-73); PLATELET COUNT 156 x10^3/uL (140-400); RED BLOOD COUNT 4.26 x10^6/uL (4.30-5.70); RED CELL DISTRIBUTION WIDTH 13.5 % (11.5-14.5); WHITE BLOOD COUNT 7.5 x10^3/uL (4.0-11.0)
[2021-01-18] MEDS ORDERED: methylPREDNISolone SOD SUCC PF 125 MG/2 ML VIAL. IV ONE (17:15)
[2021-01-18 17:20] LABS: CALCIUM 8.6 mg/dL (8.5-10.1); CREATININE 1.6 mg/dL (0.7-1.3); GFR 42.8; POTASSIUM 4.5 mmol/L (3.5-5.1)
[2021-01-18 17:33] LABS: ALBUMIN 4.2 g/dL (3.4-5.0); ALBUMIN/GLOBULIN RATIO 1.3 (1.0-1.7); TOTAL BILIRUBIN 0.4 mg/dL (0.2-1.0); TOTAL PROTEIN 7.4 g/dL (6.4-8.2)
--- NOTE | 2021-01-18 17:40 | RAD ---
Exam: Chest one view INDICATION: Shortness of breath TECHNIQUE: Frontal view of the chest Comparisons: 10/11/2020 FINDINGS: The cardiomediastinal silhouette and pulmonary vessels are within normal limits. The lung and pleural spaces are clear. IMPRESSION: No acute cardiopulmonary process. Electronically signed by: Safia Johnson MD (01/18/2021 5:38 PM) [facility]
[2021-01-18 18:27] VITALS: BP 113/66
--- NOTE | 2021-01-18 19:38 | EKG ---
[address] [address] Test Date: 2021-01-18 Test Time: 16:28:16 Pat Name: SUYAPA KENNEY Department: Room: Gender: M Supervisor Electric: [facility] : 1950 Requested By: HUMZA SEAMAN Order Number: [id number] Reading MD: Measurements Intervals [place] Rate: 86 P: 90 HI: 134 QRS: -69 QRSD: 86 T: 90 QT: 354 QTc: 427 Interpretive Statements SINUS RHYTHM ABNORMAL LEFT AXIS DEVIATION LEFT ANTERIOR FASCICULAR BLOCK QRS(T) CONTOUR ABNORMALITY CONSISTENT WITH SEPTAL INFARCT PROBABLY OLD T ABNORMALITY IN HIGH LATERAL LEADS ABNORMAL ECG RI6.02 No previous ECG available for comparison
== END 2021-01-18 18:55 | disposition home or self-care (01) ==
LOC: ER 16:15
DX: J44.1 Chronic obstructive pulmonary disease with (acute) exacerbation (principal); R07.89 Other chest pain; E03.9 Hypothyroidism, unspecified; I25.2 Old myocardial infarction; F17.200 Nicotine dependence, unspecified, uncomplicated
CPT/HCPCS: 36415; 71045; 80053; 83880; 84484; 85025; 93005; 94640; 96374; 99285; J2930

== ENCOUNTER 2021-02-10 04:52 | Emergency (ER) | payer OTHER, MEDICAID ==
[~2021-02-10] VITALS: Ht 182.9 cm; Wt 72.0 kg
--- NOTE | 2021-02-10 05:07 | PHYS DOC ---
Past History Past Medical History: Bronchitis, CAD, Cancer, Constipation, COPD, Hypothyroid, PA, Pneumonia Additional Past Medical Histor: DDD, thyroid cancer and peripheral vascular disease, kidney cancer Past Surgical History: Cancer Surgery, Cholecystectomy, Other Additional Past Surgical Histo: thyroidectomy; bx of liver; lt partial nephrectomy;skin can of nose; stents Smoking: Less than 1pk/day Alcohol Use: None Drug Use: None General Adult EDM: Chief Complaint: DYSPNEA/RESPIRATOY DISTRESS HPI: HPI: 70-year-old male presents with shortness of breath. The patient has known COPD. He was feeling a little more short of breath yesterday but it seemed controlled with his breathing treatments. Tonight, the patient woke up in the middle of the night and felt like his heart rate was a bit elevated. He also was feeling short of breath. He went to the bathroom and came back and his shortness of breath seem to be worse. He has a cough, but cannot cough anything up. He tried 2 DuoNeb treatments at home without relief. He decided he should come in the emergency room. The patient is vaccinated against COVID-19. He denies fever or chills. Review of Systems: Review of Systems: Constitutional: Denies fever or chills Eyes: Denies change in visual acuity HENT: Denies nasal congestion or sore throat Respiratory: Cough with shortness of breath Cardiovascular: Denies chest pain or edema GI: Denies abdominal pain, nausea, vomiting, bloody stools or diarrhea : Denies dysuria Musculoskeletal: Denies back pain or joint pain Integument: Denies rash Neurologic: Denies headache, focal weakness or sensory changes Endocrine: Denies polyuria or polydipsia Lymphatic: Denies swollen glands Psychiatric: Denies depression or anxiety Current Medications: Current Meds: Current Medications Medications (Trade) Dose Ordered Sig/Fritz Start Time Stop Time Status Last Admin Dose Admin Dexamethasone Sodium Phosphate (Decadron) 10 mg 1X ONCE 02/10/21 05:30 02/10/21 05:31 Allergies: Allergies: Allergies Coded Allergies Type Severity Reaction Last Updated Verified No Known Allergies Allergy Unknown 01/18/21 Yes Physical Exam: PE: Constitutional: Well developed, well nourished, no acute distress, non-toxic appearance. [] HENT: Normocephalic, atraumatic, bilateral external ears normal, oropharynx moist, no oral exudates, nose normal. [] Eyes: PERRLA, EOMI, conjunctiva normal, no discharge. [] Neck: Normal range of motion, no tenderness, supple, no stridor. [] Cardiovascular:Heart rate regular rhythm, no murmur [] Lungs & Thorax: Bilateral breath sounds significantly diminished with expiratory wheezing throughout [] Abdomen: Bowel sounds normal, soft, no tenderness, no masses, no pulsatile masses. [] Skin: Warm, dry, no erythema, no rash. [] Back: No tenderness, no CVA tenderness. [] Extremities: No tenderness, no cyanosis, no clubbing, ROM intact, no edema. [] Neurologic: Alert and oriented X 3, normal motor function, normal sensory function, no focal deficits noted. [] Psychologic: Affect normal, judgement normal, mood concerned. [] EKG: EKG: Sinus rhythm, rate 87, leftward axis, no ST elevation or depression. [] Radiology/Procedures: Radiology/Procedures: [] Impressions: EXAMINATION: Chest radiograph. VIEWS: Single view COMPARISON: 01/20/2021 INDICATION:70 years, Male, cough, congestion and shortness of breath. FINDINGS: Normal cardiomediastinal silhouette. Moderate pulmonary emphysema as seen on prior exam. No focal consolidation. No pleural effusion or pneumothorax. No acute osseous process. IMPRESSION: 1. No acute cardiopulmonary process. 2. Moderate pulmonary emphysema. Electronically signed by: Elvira Aguirre MD (02/10/2021 5:30 AM) [facility] DICTATED AND SIGNED BY: ELVIRA AGUIRRE MD DATE: 02/10/21 0529 CC: HUMZA SEAMAN DO; MEL MENDIETA MD ~MTH0 0 Heart Score: C/O Chest Pain: N/A Risk Factors: Risk Factors: DM, Current or recent (<one month) smoker, HTN, HLP, family history of CAD, obesity. Risk Scores: Score 0 - 3: 2.5% MACE over next 6 weeks - Discharge Home Score 4 - 6: 20.3% MACE over next 6 weeks - Admit for Clinical Observation Score 7 - 10: 72.7% MACE over next 6 weeks - Early Invasive Strategies Course & Med Decision Making: Course & Med Decision Making Pertinent Labs and Imaging studies reviewed. (See chart for details) The patient's labs are unremarkable. His chest x-ray is negative for acute findings. He is having a COPD exacerbation and will require admission. I spoke with Dr. Mcdaniels and he has accepted the patient for admission. The patient is in agreement with this plan. [] Dragon Disclaimer: Dragon Disclaimer: This electronic medical record was generated, in whole or in part, using a voice recognition dictation system. Departure Departure: Impression: Primary Impression: Chronic obstructive pulmonary disease with (acute) exacerbation Disposition: ADMITTED INPATIENT Admitting Physician: Elba Mcdaniels Condition: STABLE Referrals: MEL MENDIETA MD (PCP) HUMZA SEAMAN DO Feb 10, 2021 05:07
[2021-02-10 05:24] LABS: BASO # 0.1 x10^3/uL (0.0-0.2); BASO % 1 % (0-3); EOS # 0.1 x10^3/uL (0.0-0.7); EOS % 1 % (0-3); HEMATOCRIT 42.6 % (39.0-53.0); HEMOGLOBIN 14.4 g/dL (13.0-17.5); LYMPH # 3.2 x10^3/uL (1.0-4.8); LYMPH % 32 % (24-48); MEAN CORPUSCULAR HEMOGLOBIN 34 pg (25-35); MEAN CORPUSCULAR HGB CONC 34 g/dL (31-37); MEAN CORPUSCULAR VOLUME 99 fL (79-100); MONO # 0.8 x10^3/uL (0.0-1.1); MONO % 8 % (0-9); NEUT % 59 % (31-73); PLATELET COUNT 183 x10^3/uL (140-400); RED BLOOD COUNT 4.32 x10^6/uL (4.30-5.70); RED CELL DISTRIBUTION WIDTH 13.9 % (11.5-14.5); WHITE BLOOD COUNT 10.2 x10^3/uL (4.0-11.0)
[2021-02-10] MEDS ORDERED: DEXAMETHASONE SOD PHOS 10 MG/ML VIAL. IVP ONE (05:30)
[2021-02-10] MEDS ORDERED: IPRATRPIUM/ALBUTEROL 0.5/2.5MG 3 ML NEBU. NEB ONE (05:30)
--- NOTE | 2021-02-10 05:32 | RAD ---
EXAMINATION: Chest radiograph. VIEWS: Single view COMPARISON: 01/20/2021 INDICATION:70 years, Male, cough, congestion and shortness of breath. FINDINGS: Normal cardiomediastinal silhouette. Moderate pulmonary emphysema as seen on prior exam. No focal con solidation. No pleural effusion or pneumothorax. No acute osseous process. IMPRESSION: 1. No acute cardiopulmonary process. 2. Moderate pulmonary emphysema. Electronically signed by: Cuca Aguirre MD (02/10/2021 5:30 AM) [facility]
[2021-02-10 05:33] LABS: CALCIUM 8.9 mg/dL (8.5-10.1); CREATININE 1.4 mg/dL (0.7-1.3); POTASSIUM 4.2 mmol/L (3.5-5.1)
[2021-02-10 05:39] LABS: ALBUMIN 3.9 g/dL (3.4-5.0); ALBUMIN/GLOBULIN RATIO 1.4 (1.0-1.7); TOTAL BILIRUBIN 0.3 mg/dL (0.2-1.0); TOTAL PROTEIN 6.7 g/dL (6.4-8.2)
--- NOTE | 2021-02-10 06:08 | EKG ---
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
[2021-02-10] MEDS ORDERED: MORPHINE SULFATE 2 MG/ML DISP.SYRIN. IVP PRN (07:15)
[2021-02-10] MEDS ORDERED: ONDANSETRON PF 4 MG/2 ML VIAL. IVP PRN (07:15)
[2021-02-10 08:42] VITALS: BP 120/75
[2021-02-10] MEDS ORDERED: PRED50TA PO (08:44)
[2021-02-10] MEDS ORDERED: ALBU2.5V8 IH (08:45)
== END 2021-02-10 09:05 | disposition home or self-care (01) ==
LOC: ER 04:52
DX: J44.1 Chronic obstructive pulmonary disease with (acute) exacerbation (principal); F17.200 Nicotine dependence, unspecified, uncomplicated; Z90.49 Acquired absence of other specified parts of digestive tract; Z20.822 Contact with and (suspected) exposure to COVID-19
CPT/HCPCS: 36415; 71045; 80053; 84484; 85025; 93005; 94640; 96374; 99285; J1100; U0003

== ENCOUNTER 2021-10-18 03:09 | Emergency (ER) | payer OTHER, MEDICAID ==
[~2021-10-18 03:09] MED LIST changes: +ALBU2.5V8 IH; -CLIN150C15 PO; +CLIN150C16 PO
[2021-10-18] MEDS ORDERED: IOHEXOL 350 MG/ML 100 ML VIAL. ONE (04:04)
[2021-10-18] MEDS ORDERED: MECLIZINE 12.5 MG TABLET. ONE (05:12)
[2021-10-18] MEDS: IOHEXOL 350 MG/ML 100 ML VIAL. IV ONE (05:37)
[2021-10-18 05:42] LABS: BACTERIA,URINE 0 /HPF (0-FEW); CLARITY,URINE CLEAR; COLOR,URINE YELLOW; GLUCOSE,URINE NEG (NEG); NITRITE,URINE NEG (NEG); SQUAMOUS EPITHELIAL CELL,UR OCC /LPF; UROBILINOGEN,URINE 0.2 mg/dL (0.2 mg/dL); WBC,URINE OCC /HPF (0-4)
[2021-10-18 05:44] LABS: BASO % 1 % (0-3); EOS # 0.1 x10^3/uL (0.0-0.7); EOS % 1 % (0-3); HEMOGLOBIN 13.8 g/dL (13.0-17.5); LYMPH # 2.4 x10^3/uL (1.0-4.8); LYMPH % 32 % (24-48); MEAN CORPUSCULAR HEMOGLOBIN 33 pg (25-35); MEAN CORPUSCULAR HGB CONC 34 g/dL (31-37); MEAN CORPUSCULAR VOLUME 98 fL (79-100); MONO # 0.5 x10^3/uL (0.0-1.1); MONO % 7 % (0-9); NEUT # 4.6 x10^3uL (1.8-7.7); NEUT % 60 % (31-73); PLATELET COUNT 160 x10^3/uL (140-400); RED BLOOD COUNT 4.21 x10^6/uL (4.30-5.70); RED CELL DISTRIBUTION WIDTH 14.1 % (11.5-14.5); WHITE BLOOD COUNT 7.6 x10^3/uL (4.0-11.0)
[2021-10-18] MEDS ORDERED: CONTRAST GIVEN. MC PRN (05:45)
[2021-10-18 05:48] LABS: ALBUMIN 3.8 g/dL (3.4-5.0); ALBUMIN/GLOBULIN RATIO 1.1 (1.0-1.7); CALCIUM 8.9 mg/dL (8.5-10.1); CREATININE 1.6 mg/dL (0.7-1.3); GFR 42.7; MAGNESIUM 2.1 mg/dL (1.8-2.4); TOTAL BILIRUBIN 0.4 mg/dL (0.2-1.0); TOTAL PROTEIN 7.2 g/dL (6.4-8.2)
--- NOTE | 2021-10-18 06:25 | RAD ---
CT HEAD/BRAIN WO, CTA HEAD AND NECK W/WO CONTRAST History:Dizziness, poor balance and fall on 10/18/2019 2:19 PM. Technique: Noncontrast head CT was performed in correlation with this exam. After bolus of intravenou s contrast, volumetric CT data acquisition was acquired of the head and neck. Multiplanar reconstruct ion images to include MIP and 3-D reconstruction images are submitted. Exposure: One or more of the following individualized dose reduction techniques were utilized for thi s examination: 1. Automated exposure control 2. Adjustment of the mA and/or kV according to patient size 3. Use of iterative reconstruction technique. Comparison: None Any determination of stenosis is based on NASCET criteria. Noncontrast CT head: No intracranial hemorrhage, acute infarct, or mass lesion. Whittington-white matter dif ferentiation is maintained. The ventricles and sulci are normal. Skull and scalp are intact. Paranasa l sinuses and mastoid air cells are clear. Globes and orbits are intact. Head CTA: ICA: No stenosis, occlusion or aneurysm. MCA: No stenosis, occlusion or aneurysm. BONI: No stenosis, occlusion or aneurysm. 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 Basilar artery: No stenosis, occlusion or aneurysm. Distal vertebral arteries: No stenosis, occlusion or aneurysm. CT angiogram neck: Aortic arch: Bovine configuration. Great vessel origins are patent. There is focal irregular atheroma tous plaque in the proximal left subclavian artery prior to the vertebral artery origin (image 782 th in axial series). Common carotid arteries: No stenosis, occlusion or dissection. Internal carotid arteries: No stenosis, occlusion or dissection. Mild calcifications at the origin of the left ICA without narrowing. External carotid arteries: Patent Vertebral arteries: Mild focal narrowing of the mid left vertebral artery due to calcifications. Othe rwise no stenosis, occlusion or dissection. There is severe emphysema. Large bullous formation in the superior segment of the left lower lobe red emonstrated.. Soft tissues appear normal. Bones: Mild degenerative disc disease. IMPRESSION: 1. No acute intracranial abnormality. 2. No dissection, high-grade stenosis or large vessel occlusion within the head or neck. 3. Focal irregular atheromatous plaque in the proximal left subclavian artery prior to the vertebral artery origin. This could be a source of embolization. If there is clinical concern for acute infarct , MRI could be obtained to further evaluate. FOR INTERNAL CODING PURPOSES Critical result: Preliminary findings of negative CT head and no dissection or LVO discussed with MAGAN ABRAHAM MD a t 10/18/2021 AM. Additional findings of atheromatous plaque in the left subclavian artery discussed by Dr. Corona with Dr. Mendiola at 6:20 PM on 10/18/2021. RESULT CODE: (C) Electronically signed by: Ileana Corona MD (10/18/2021 6:23 AM) [facility]
--- NOTE | 2021-11-02 09:57 | RAD ---
ADDENDUM #1 Correction to critical results: original findings discussed with Dr. Abraham around 5:00 AM on 10/18/2021. Additional findings discussed with Dr. Mendiola at 6:20 AM on 10/18/2021. Electronically signed by: Ileana Corona MD (10/18/2021 6:40 AM) [facility] ORIGINAL REPORT CT HEAD/BRAIN WO, CTA HEAD AND NECK W/WO CONTRAST History:Dizziness, poor balance and fall on 10/18/2019 2:19 PM. Technique: Noncontrast head CT was performed in correlation with this exam. After bolus of intravenous contrast, volumetric CT data acquisition was acquired of the head and neck. Multiplanar reconstruction images to include MIP and 3-D reconstruction images are submitted. Exposure: One or more of the following individualized dose reduction techniques were utilized for this examination: 1. Automated exposure control 2. Adjustment of the mA and/or kV according to patient size 3. Use of iterative reconstruction technique. Comparison: None Any determination of stenosis is based on NASCET criteria. Noncontrast CT head: No intracranial hemorrhage, acute infarct, or mass lesion. Whittington-white matter differentiation is maintained. The ventricles and sulci are normal. Skull and scalp are intact. Paranasal sinuses and mastoid air cells are clear. Globes and orbits are intact. Head CTA: ICA: No stenosis, occlusion or aneurysm. MCA: No stenosis, occlusion or aneurysm. BONI: No stenosis, occlusion or aneurysm. 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 Basilar artery: No stenosis, occlusion or aneurysm. Distal vertebral arteries: No stenosis, occlusion or aneurysm. CT angiogram neck: Aortic arch: Bovine configuration. Great vessel origins are patent. There is focal irregular atheromatous plaque in the proximal left subclavian artery prior to the vertebral artery origin (image [id number] thin axial series). Common carotid arteries: No stenosis, occlusion or dissection. Internal carotid arteries: No stenosis, occlusion or dissection. Mild calcifications at the origin of the left ICA without narrowing. External carotid arteries: Patent Vertebral arteries: Mild focal narrowing of the mid left vertebral artery due to calcifications. Otherwise no stenosis, occlusion or dissection. There is severe emphysema. Large bullous formation in the superior segment of the left lower lobe redemonstrated.. Soft tissues appear normal. Bones: Mild degenerative disc disease. IMPRESSION: 1. No acute intracranial abnormality. 2. No dissection, high-grade stenosis or large vessel occlusion within the head or neck. 3. Focal irregular atheromatous plaque in the proximal left subclavian artery prior to the vertebral artery origin. This could be a source of embolization. If there is clinical concern for acute infarct, MRI could be obtained to further evaluate. FOR INTERNAL CODING PURPOSES Critical result: Preliminary findings of negative CT head and no dissection or LVO discussed with MAGAN ABRAHAM MD at 10/18/2021 AM. Additional findings of atheromatous plaque in the left subclavian artery discussed by Dr. Corona with Dr. Mendiola at 6:20 PM on 10/18/2021. RESULT CODE: (C) Electronically signed by: Ileana Corona MD (10/18/2021 6:23 AM) [facility]
== END 2021-10-18 05:20 | disposition home or self-care (01) ==
LOC: ER 03:09
DX: R42 Dizziness and giddiness (principal); I25.2 Old myocardial infarction; J44.9 Chronic obstructive pulmonary disease, unspecified; W18.39XA Other fall on same level, initial encounter; Y93.89 Activity, other specified; Y92.89 Other specified places as the place of occurrence of the external cause; Y99.8 Other external cause status
CPT/HCPCS: 36415; 70450; 70496; 70498; 80053; 81001; 83735; 84443; 84484; 85025; 85379; 85610; 85730; 99285; Q9967